=== PATIENT | male | born 1950 | race Caucasian/White ===

== ENCOUNTER 2018-07-12 13:45 | Outpatient (RCR) | payer MEDICARE, OTHER, SELFPAY ==
--- NOTE | 2018-06-14 14:51 | PTTR_ITS ---
DATE: 06/14/18 SUBJECTIVE: Valdemar indicates he does note fatigue in his leg muscles, quickly, with activity. Indicated he was very tired by the completion of today's session. Is expecting another series of injection for his back in the very near future at [facility]. OBJECTIVE: Therapeutic procedures (64972n9). * x See flow sheet: focus was on strengthening of bilateral LEs and hip stabilizers. * Verbal and tactile cues were provided throughout today's session for proper positioning and isolation of specific muscles. * x Neuro Re-education - (27913 x1): see flow sheets for balance and proprioceptive activities performed in clinic today, both statically and dynamically. * Does require stand by to contact guard x1 with each of these activities due to occasional loss of balance and limited LE strength. The patient ambulation throughout the clinic does appear very unsteady. States he has a cane that he uses outside. Direct treatment time: 35 min. Total treatment time: 35 min. SG/gc
--- NOTE | 2018-06-19 09:30 | PTTR_ITS ---
DATE: 06/19/18 SUBJECTIVE: Indicated he is doing fair today. Was tired after last session. OBJECTIVE: Therapeutic procedures (68342u6). * x See flow sheet: Focus on strengthening of bilateral LEs and hip stabilizers. * x Provided skilled instruction in proper exercise performance * x Provided skilled manual cues to facilitate proper muscle recruitment and/ or movement pattern * x Neuro Re-education - (83889 x1): See flow sheet for balance and proprioceptive activities. Performed static and dynamic activities with stand by to contact guarding required. Direct treatment time: 35 minutes Total treatment time: 35 minutes
--- NOTE | 2018-06-22 14:16 | PTTR_ITS ---
DATE: 06/22/18 SUBJECTIVE: Valdemar indicates that he definitely notes improvements being made with the strength of his LEs. Does feel that he is more stable when walking in the past few days. OBJECTIVE: Therapeutic procedures (58557l7). * HEP review: * x See flow sheet: focus was on strengthening of bilateral LE and hip stabilizers. Was able to increase 10# on hamstring machine today, as well as increasing 1 level on the [employer] with squatting tasks. Also, increased repetitions with mini squats. * Verbal and tactile cues were provided throughout today's session for proper positioning and isolation of specific muscles. * x Neuro Re-education - (10077 x1): See flow sheets for specific details of balance and proprioceptive activities performed while in clinic today. This included both dynamic and static activities, which did require mainly stand by guard x1. Continues to struggle with single leg stance activities. We did discuss practicing this at home, standing by the kitchen counter where he has something solid to grab ahold of if he becomes unsteady. Direct treatment time: 35 minutes Total treatment time: 35 minutes. SG/gc
--- NOTE | 2018-06-26 13:19 | PTTR_ITS ---
DATE: 06/26/18 SUBJECTIVE: Valdemar states he is really struggling with the balance exercises in our clinic, but feels as though his strength is improving. OBJECTIVE: * x Neuro Re-education - (65835 x2): dynamic and static balance activities , with foot placements in tandem, partial tandem, use of air-x on solid ground with eyes open and eyes closed. Dynamically worked on heel toe walking forward and backward and side stepping. He completed the remainder of his strengthening with the [employer]. For details see her note Direct treatment time: 10:00 til 10:30 A.M. Assessment: Good gains being made with his static single leg stance at 8 seconds on the right, now, compared to 3 to 4 seconds at time of I.E. This is 12 to 13 seconds on the left. Plan: Continue as indicated above. MM/gc
--- NOTE | 2018-06-29 09:30 | PTTR_ITS ---
DATE: 06/29/18 SUBJECTIVE: Mynor indicates he continues to note improvement being made with his overall strength and noting less loss of balance with his daily activities. Therapeutic procedures (53864m3). * x See flow sheet: focus was on strengthening of bilateral LE's and hip stabilizers. * X Provided skilled instruction in proper exercise performance: * X Provided skilled manual cues to facilitate proper muscle recruitment and/ or movement pattern: Was able to increase resistance with quad and hamstring machines today. * Neuro Re-education - (47069 x1): See flow sheet for balance and proprioceptive activities performed in clinic today. Continues to require stand by guard of one with balance activities, but overall appearing more stable. Did perform 10 mins of wellness at end of session. Direct treatment time: 35 mins Total treatment time: 45 mins SG/dl
--- NOTE | 2018-07-03 15:02 | PTTR_ITS ---
DATE: 07/03/18 SUBJECTIVE: Valdemar indicates that he did fall on Monday while working outside on skirting for his home. States he went to lean forward, losing his balance due to debris around him. He had a difficult time getting back into the standing position, taking him approx 15 min to do so. Indicates he did not note any injury from this fall, but is very frustrated due to the fact he had been doing so well with his balance recently. OBJECTIVE: Therapeutic procedures (08972y5). * x See flow sheet: focus was on strengthening of bilateral LEs and hip / core stabilizers. * Verbal and tactile cues were provided throughout today's session for proper positioning and isolation of specific muscles. * x Neuro Re-education - (67579 x2): See flow sheets for balance and proprioceptive activities performed while in clinic today. Stand by to contact guard x1 was provided with each of these activities. Does have the tendency to hold his feet too close together when performing dynamic movements, such as stepping over hurdles, causing him to trip on his own feet. Direct treatment time: 45 min. Total treatment time: 45 min. SG/gc
--- NOTE | 2018-07-06 10:30 | PTTR_ITS ---
DATE: 07/06/18 SUBJECTIVE: Arrived to dept indicating he has had a tiring week doing home projects. Fell again on Monday while stepping off stool backward while helping his sister. Scratched up the back of his right arm, but otherwise okay. Thinks he was just tired. OBJECTIVE: Therapeutic procedures (19943p3). * x See flow sheet: Focus on strengthening of bilateral LEs and hip / core stabilizers. Held on mini squats and only performed 10 reps of hip PREs due to patient appearing fatigued. * x Provided skilled instruction in proper exercise performance * x Provided skilled manual cues to facilitate proper muscle recruitment and/ or movement pattern * x Neuro Re-education - (33870 x2): See flow sheet for balance and proprioceptive activities performed today. Added forward reaching tasks with cone tap at varies heights and forward step ups/ backward step downs off 4 and 6 inch stools due to recent falls. Direct treatment time: 40 minutes Total treatment time: 40 minutes
--- NOTE | 2018-07-10 15:27 | PN_ITS ---
DATE: July 10, 2018 REFERRING: Justin Cedillo REFERRING PROVIDER DIAGNOSIS:: LBP/radiculopathy/right sided sciatica REPORTING PERIOD (for progress note and discharge note only): June 11 til July 10 SUBJECTIVE: Valdemar states he is going in for another injection for his spine condition tomorrow in [place]. Feels as though this has somewhat limited his unilateral stance on his right LE, otherwise he is noting strength improvements. OBJECTIVE: Seen today for a recheck - Special Tests (indicate): 30 second sit to stand transfers x8. Single leg stance greater than 10 seconds left and 8 seconds right (limited due to pain) TUG 9.72 seconds Treatment: Neuro re-ed: 27826 x2 Balance and proprioceptive training. This was upgraded to include tandem stance wobble board. He required verbal cues for proper upper trunk postural positioning to avoid forwardly flexed posture. Therapeutic procedure: 60958 x1 Bilateral LE strengthening with modifications to prevent increased right hip pain when performing unilateral right hip stance. Treatment time: 11:10 A.M. til 12:00 P.M. ASSESSMENT: Strength and balance are progressing well. 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 We discussed being more aware of these positions with higher end activities, and not place himself at such risk. ST) improve partial tandem to 10 seconds left and/or right foot anterior - progressing toward with improvement 2) able to perform tandem stance 10 seconds left and/or right foot anterior - met 3) able to perform 8 sit to stand transfers in 30 seconds - met LT) TUG in less than 11 seconds - met 2) age appropriate 12+ sit to stand transfers in 30 seconds - making progress toward 3) patient independent with HEP - making progress toward 4) improve single leg stance to greater than or equal to 10 seconds - making progress toward G-Codes (add modifier after appropriate code): Patient's primary functional limitation is in the category of: * x Mobility - walking and moving around : [id number] Projected goal: [id number] PLAN: Still progressing toward goals, and making good gains. Do feel some of his limitations are stemming from hip pain coming from his back, and he will address this with an injection. Continue 2x per week for another 2 to 3 weeks with transition to [facility]. Thank you for this referral!
--- NOTE | 2018-07-12 14:44 | PTTR_ITS ---
DATE: 07/12/18 SUBJECTIVE: Valdemar reports that he received two injections in his back yesterday , and has some noted soreness in right lateral hip. He does report that he has noted a decrease in his pain already. OBJECTIVE: Therapeutic procedures (46102k9). * [X] See flow sheet: Patient completed a LE strengthening program, as per flow sheet. Patient tolerated a slight progression in his program today, modifications are noted on flow sheet. Vitals were checked pre and post- exercise on the [employer], which he completed via [facility]. * [X] Provided skilled instruction in proper exercise performance. * [X] Provided skilled manual cues to facilitate proper muscle recruitment and/or movement pattern. Neuro Re-education - (67048 x2): Patient completed a static and dynamic proprioceptive and balance retraining program, as per flow sheet. Patient required CGA for most balance exercises for safety. Direct treatment time: 45 minutes Total treatment time: 50 minutes
== END 2018-07-13 23:59 | disposition home or self-care (01) ==
LOC: PT 13:45
PROVIDERS: PCP Family Medicine; Referring Provider Nurse Practitioner; Visit Provider Nurse Practitioner
DX: R29.6 Repeated falls (principal); R26.81 Unsteadiness on feet
CPT/HCPCS: 97110; 97112; G8978

== ENCOUNTER → 2019-04-26 09:02 | Outpatient (BNVA) | payer MEDICARE, OTHER, SELFPAY | PROVIDERS: PCP Specialist/Technologist Athletic Trainer; Referring Provider Family Medicine; Visit Provider Surgery | DX: R13.10 Dysphagia, unspecified (principal); J44.9 Chronic obstructive pulmonary disease, unspecified; E11.9 Type 2 diabetes mellitus without complications; Z79.84 Long term (current) use of oral hypoglycemic drugs | CPT/HCPCS: 99203; 99214 ==

== ENCOUNTER 2019-04-29 12:17 | Day surgery (SDC) | payer MEDICARE, OTHER, SELFPAY ==
--- NOTE | 2019-04-29 06:58 | W.PM.ENDDOP ---
Date of service: 04/29/19 Time of Service: 13:20 Endoscopy Report DATE OF PROCEDURE: 04/29/19 PRE-OP DIAGNOSIS: Dysphagia POST-OP DIAGNOSIS: other (mild gastritis and esophagitis) PROCEDURE: EGD with bx SURGEON: Claudia Hale ANESTHESIA: other (General/ ASA 2/Vickie Shields, HERMINIO) ESTIMATED BLOOD LOSS: 3 PATHOLOGY: other (Antrum bx, gastric polyp bx, GE junction bx and distal esophagus bx) COMPLICATIONS: None DISPOSITION: same day INDICATIONS: Mr. Smith is a pleasant 68 year old with dysphagia. Risks, benefits and complications have been reviewed. Complications include but are not limited to bleeding, pain, perforation, sore throat, aspiration, and adverse reaction to the medications. Questions were entertained and answered to their satisfaction and they wished to proceed. No guarantees were given or implied. PROCEDURE START TIME: 13:20 PROCEDURE END TIME: 13:30 FINDINGS: Mild gastritis and benign appearing fundic polyps Wrap seems intact Esophagitis mild Tortuous esophagus distally PROCEDURE DESCRIPTION: After informed consent was obtained the patient was take to the procedure room and placed in a supine position. Monitors were applied and a time out was done. The patients name, date of , procedure type, allergies to medications and metal in their body was reviewed. A bite block was placed and the patient was sedated. Once sedated and comfortable the gastroscope was advanced through the oropharynx which was grossly normal into the esophagus. The proximal and mid-esophagus were normal. In the distal esophagus there was tortuousity noted, as well as some mild inflammation. The scope was advanced into the stomach and through the pylorus into the 3rd portion of the duodenum. The duodenum was noted to be normal. The scope was retracted back into the stomach and biopsies were done to rule out H. pylori. There was mild inflammation. There were no ulcers. The scope was retro-flexed. The cardia and fundus were noted to be normal. It looked like there was still at least a partial wrap in place. The scope was retracted back into the esophagus and biopsies were done of the GE junction to rule out Reynaga's. The Z line was regular. The GE junction was at 35 cm. Biopsies were also done of the distal esophagus at 30 cm. The scope was removed and the patient was woken up and taken back to [facility] in stable condition. Follow up: I will order a Barium swallow. I will also increase his Omeprazole to 20 mg BID. I will see him in the office after the Barium swallow.
--- NOTE | 2019-04-29 06:59 | W.PM.DSUDISC ---
Discharge Plan Disposition Patient Disposition: HOME Condition: Good Discharge Details Reason For Visit: EGD Attending Provider: Claudia Hale Primary Care Provider: Hilario Shay Home Meds and New Rx's Prescriptions: Continued oxybutynin chloride 5 mg tablet 5 mg PO BID RF: 0 Jardiance 25 mg tablet 25 mg PO DAILY RF: 0 gabapentin 300 mg capsule 900 mg PO TID RF: 0 metformin 500 mg tablet 1,000 mg PO BID RF: 0 paroxetine HCl [Paxil] 40 mg tablet 40 mg PO DAILY RF: 0 pravastatin 40 mg tablet 40 mg PO DAILY RF: 0 cholecalciferol (vitamin D3) [Vitamin D3] 400 UNIT tablet 1 tab PO HS RF: 0 glipizide 10 MG tablet 10 mg PO DAILY RF: 0 lisinopril 10 MG tablet 10 mg PO DAILY RF: 0 acetaminophen [Acetaminophen Extra Strength] 500 MG tablet 1,000 mg PO TID PRNRF: 0 Changed omeprazole 20 MG capsule,delayed release(DR/EC) 20 mg PO BID Qty: 60 RF: 2 Discharge Instructions Instructions: Upper Endoscopy (DC) Additional Instructions: Findings: Mild inflammation of the stomach and esophagus. No narrowing or scar tissue noted to explain the swallowing issues Follow up:I will order a Barium swallow test and see you in the office after the test has been done Medications: Please increase the Omeprazole to 20 mg 2 x a day Please call if you develop: fevers >101.5 Nausea or Vomiting Abdominal pain that is not transient DAY SURGERY UNIT POST COLONOSCOPY INSTRUCTIONS 1. Because there will be medication in your system for the next 24 hours, you may feel a little sleepy. Your coordination will be affected. Therefore: a. Do not drive or operate dangerous equipment for 24 hours. b. Do not drink alcohol beverages for 24 hours (not even beer). c. Plan to go home and rest for the day. 2. Generally there are no restrictions on your activity after a day or so has gone by, but you may feel a bit fatigued for a few days. 3 After you arrive home you may have a light meal and return to a normal diet as you can tolerate it without feeling sick to your stomach. 4. After surgery, you may feel pain or discomfort. This should be only transient, but if it persists please contact your doctor. 5. If there are any questions regarding the findings of your procedure, please feel free to contact your doctor. 6. If you are unable to contact your doctor with a problem, contact the hospital at [phone]. 7. Continue all your regular medications unless directed otherwise. I understand the above instructions and have no questions. Signature of Patient or Responsible Adult Escort Date/Time Name of Responsible Adult Escort Signature of Nurse Date/Time Activity:: Activity as Tolerated Diet:: As Tolerated Discharge Orders Discharge Orders: Discharge Order (Routine); Ordered 04/29/19 Ordered By: Claudia Hale DS: Diagnosis Discharge Diagnosis (1) H/O esophagogastroduodenoscopy: Status: Chronic (2) GERD (gastroesophageal reflux disease): Status: Chronic
[2019-04-29 12:47] VITALS: BP 132/87; PULSE 99; RESP 18; TEMP 36.5; O2SAT 93
[2019-04-29] MEDS: Lactated Ringers 1,000 ML 80 ML IV (13:00)
--- NOTE | 2019-04-29 13:24 | STOM_PTH ---
PATIENT: Valdemar Smith LOC: [facility] U#:[id number] AGE/SX: 68/M ROOM: RE04/29/[address]: Claudia Hale MD : [id number] BED: DIS: 04/29/2019 SPEC #: [id number] RECD: 04/29/19 17:51 STATUS: SALO WILLSON #: [id number] SAIMA: 04/29/19 13:[address]: Claudia Hale DEPT: Surgical Specimen RECD BY: Rachel Palacio ENTERED: 04/29/19 17:52 SP TYPE: STOMACH OTHR DR: Hilario Shay Tissues: 1 - STOMACH BIOPSY 2 - STOMACH BIOPSY 3 - ESOPHAGUS BIOPSY 4 - ESOPHAGUS BIOPSY Procedures: GROSS AND MICRO LEVEL 4 SPECIAL STAIN 1 Comments: [id number]
[2019-04-29 14:15] VITALS: BP 123/82; PULSE 89; RESP 18; TEMP 36.4; O2SAT 95
== END 2019-04-29 15:07 | disposition home or self-care (01) ==
PROVIDERS: PCP Specialist/Technologist Athletic Trainer; Visit Provider Surgery
PROC: 0DJ68ZZ Inspection of Stomach, Via Natural or Artificial Opening Endoscopic (ICD-10-PCS; CPT 43235; principal; 2019-04-29 13:00)
DX: R13.10 Dysphagia, unspecified (principal); K22.10 Ulcer of esophagus without bleeding; K31.7 Polyp of stomach and duodenum; K31.89 Other diseases of stomach and duodenum; E11.9 Type 2 diabetes mellitus without complications; Z79.84 Long term (current) use of oral hypoglycemic drugs; Z98.890 Other specified postprocedural states
CPT/HCPCS: 43239; 88305; 88312

== ENCOUNTER 2019-05-02 00:46 | Outpatient (CLI) | payer MEDICARE, OTHER, SELFPAY ==
--- NOTE | 2019-05-02 09:50 | DI.RAD_ITS ---
SYMPTOM/DIAGNOSIS: DYSPHAGIA, R13.10 BARIUM SWALLOW AND UPPER GI SERIES: Preliminary films of the chest are unremarkable. A soft tissue lateral of the neck was also obtained and appears unremarkable. Fluoroscopy Time: .38 sec The patient swallowed barium without difficulty. The oral hypopharynx and esophagus appear intact. The patient is status post Yong procedure and there is considerable narrowing of the distal esophagus at the level of the Yong. The stomach, duodenum and proximal and mid small bowel appear unremarkable. SUMMARY: The patient is status post Yong procedure and there is considerable narrowing involving the distal esophagus at the level of the Yong The stomach and proximal small bowel are unremarkable.
[2019-05-02] MEDS: Barium Sulfate 60% W/V 355 ML BTL PO (11:26)
== END 2019-05-02 01:06 ==
PROVIDERS: PCP Specialist/Technologist Athletic Trainer; Visit Provider Surgery
DX: R13.10 Dysphagia, unspecified (principal); Z98.890 Other specified postprocedural states
CPT/HCPCS: 74220; 74247; J3490

== ENCOUNTER 2019-06-05 15:28 | Outpatient (REF) | payer MEDICARE, OTHER, SELFPAY ==
[2019-06-05 23:03] LABS: Anion Gap 13.8 mmol/L (3-11); BUN 26 mg/dL (7-18); CO2 23.2 mmol/L (21.0-32.0); CREATININE 1.39 mg/dL (0.70-1.30); Calcium 8.9 mg/dL (8.5-10.1); Calculated LDL 93 mg/dL; Chloride 105 mmol/L (98-107); Cholesterol 168 mg/dL (50-200); Estimated GFR 50.82 (mL/min/1.73m2); Glucose 82 mg/dL (70-100); HDL Cholesterol 37 mg/dL (40-60); Potassium 4.5 mmol/L (3.5-5.1); Sodium 142 mmol/L (136-145); Triglyceride 192 mg/dL (30-150)
== END 2019-06-05 15:48 ==
LOC: NCHCN 15:28
PROVIDERS: PCP Specialist/Technologist Athletic Trainer; Visit Provider Specialist/Technologist Athletic Trainer
DX: E11.9 Type 2 diabetes mellitus without complications (principal); E78.5 Hyperlipidemia, unspecified
CPT/HCPCS: 80048; 80061; 83721; 83735

== ENCOUNTER → 2019-06-13 09:33 | Outpatient (BNVA) | payer MEDICARE, OTHER, SELFPAY | PROVIDERS: PCP Specialist/Technologist Athletic Trainer; Visit Provider Psychiatry & Neurology Neurology | DX: R26.9 Unspecified abnormalities of gait and mobility (principal); G47.30 Sleep apnea, unspecified; R26.81 Unsteadiness on feet; R13.10 Dysphagia, unspecified; R41.3 Other amnesia; E11.40 Type 2 diabetes mellitus with diabetic neuropathy, unspecified; K59.00 Constipation, unspecified; R32 Unspecified urinary incontinence; F41.9 Anxiety disorder, unspecified; J44.9 Chronic obstructive pulmonary disease, unspecified; E11.9 Type 2 diabetes mellitus without complications | CPT/HCPCS: 99205; 99215 ==

== ENCOUNTER → 2019-07-11 11:14 | Outpatient (BNVA) | payer MEDICARE, OTHER, SELFPAY | PROVIDERS: PCP Specialist/Technologist Athletic Trainer; Visit Provider Psychiatry & Neurology Neurology | DX: G47.30 Sleep apnea, unspecified; R26.81 Unsteadiness on feet; R13.10 Dysphagia, unspecified; R41.3 Other amnesia; E11.40 Type 2 diabetes mellitus with diabetic neuropathy, unspecified; K59.00 Constipation, unspecified; F41.9 Anxiety disorder, unspecified; I10 Essential (primary) hypertension; Z99.89 Dependence on other enabling machines and devices; Z79.84 Long term (current) use of oral hypoglycemic drugs; J44.9 Chronic obstructive pulmonary disease, unspecified | CPT/HCPCS: 99214 ==

== ENCOUNTER → 2019-08-05 08:15 | Outpatient (BNVA) | payer MEDICARE, OTHER, SELFPAY | PROVIDERS: PCP Specialist/Technologist Athletic Trainer; Visit Provider Psychiatry & Neurology Neurology | DX: R26.9 Unspecified abnormalities of gait and mobility (principal); G47.30 Sleep apnea, unspecified; R26.81 Unsteadiness on feet; R13.10 Dysphagia, unspecified; R41.3 Other amnesia; E11.40 Type 2 diabetes mellitus with diabetic neuropathy, unspecified; K59.00 Constipation, unspecified; F41.9 Anxiety disorder, unspecified; I10 Essential (primary) hypertension; Z79.84 Long term (current) use of oral hypoglycemic drugs | CPT/HCPCS: 99215 ==

== ENCOUNTER 2019-08-05 09:37 | Outpatient (CLI) | payer MEDICARE, OTHER, SELFPAY ==
[2019-08-05 11:11] LABS: TSH (W/Ref FT4) 1.51 uIU/mL (0.36-3.74); Vitamin B12 357 pg/mL (193-986)
== END 2019-08-05 09:57 ==
PROVIDERS: PCP Specialist/Technologist Athletic Trainer; Visit Provider Psychiatry & Neurology Neurology
DX: G62.9 Polyneuropathy, unspecified (principal); R50.9 Fever, unspecified; R26.9 Unspecified abnormalities of gait and mobility; G47.30 Sleep apnea, unspecified; R26.81 Unsteadiness on feet; R13.10 Dysphagia, unspecified; R41.3 Other amnesia; E11.40 Type 2 diabetes mellitus with diabetic neuropathy, unspecified; K59.00 Constipation, unspecified; F41.9 Anxiety disorder, unspecified; I10 Essential (primary) hypertension; Z79.84 Long term (current) use of oral hypoglycemic drugs
CPT/HCPCS: 36415; 99215; 82607; 84443

== ENCOUNTER → 2019-09-02 14:46 | Outpatient (BNVA) | payer MEDICARE, OTHER, SELFPAY | PROVIDERS: PCP Specialist/Technologist Athletic Trainer; Referring Provider Specialist/Technologist Athletic Trainer; Visit Provider Psychiatry & Neurology Neurology | DX: G20 Parkinson's disease (principal); R41.3 Other amnesia; R13.10 Dysphagia, unspecified; R32 Unspecified urinary incontinence; E11.40 Type 2 diabetes mellitus with diabetic neuropathy, unspecified; R53.83 Other fatigue; Z79.84 Long term (current) use of oral hypoglycemic drugs; J44.9 Chronic obstructive pulmonary disease, unspecified | CPT/HCPCS: 99214 ==

== ENCOUNTER → 2020-04-27 11:35 | Outpatient (BNVA) | payer MEDICARE, OTHER, SELFPAY | PROVIDERS: PCP Specialist/Technologist Athletic Trainer; Referring Provider Specialist/Technologist Athletic Trainer; Visit Provider Psychiatry & Neurology Neurology | DX: G23.1 Progressive supranuclear ophthalmoplegia [Steele-Richardson-Olszewski] (principal); R26.9 Unspecified abnormalities of gait and mobility; R13.10 Dysphagia, unspecified; G47.30 Sleep apnea, unspecified; R26.81 Unsteadiness on feet; R41.3 Other amnesia; E11.40 Type 2 diabetes mellitus with diabetic neuropathy, unspecified; K59.00 Constipation, unspecified; R32 Unspecified urinary incontinence; F41.9 Anxiety disorder, unspecified | CPT/HCPCS: 99214 ==

== ENCOUNTER → 2020-07-06 09:20 | Outpatient (BNVA) | payer MEDICARE, OTHER, SELFPAY | PROVIDERS: PCP Nurse Practitioner Family; Referring Provider Specialist/Technologist Athletic Trainer; Visit Provider Psychiatry & Neurology Neurology | DX: G23.1 Progressive supranuclear ophthalmoplegia [Steele-Richardson-Olszewski] (principal); G47.30 Sleep apnea, unspecified; R26.89 Other abnormalities of gait and mobility; R13.10 Dysphagia, unspecified; R41.3 Other amnesia; E11.40 Type 2 diabetes mellitus with diabetic neuropathy, unspecified; K59.00 Constipation, unspecified; F41.9 Anxiety disorder, unspecified; J44.9 Chronic obstructive pulmonary disease, unspecified; Z79.84 Long term (current) use of oral hypoglycemic drugs | CPT/HCPCS: 99214 ==

== ENCOUNTER → 2020-08-12 14:13 | Outpatient (BNVA) | payer MEDICARE, OTHER, SELFPAY | PROVIDERS: PCP Nurse Practitioner Family; Visit Provider Psychiatry & Neurology Neurology | DX: G23.1 Progressive supranuclear ophthalmoplegia [Steele-Richardson-Olszewski] (principal); G47.30 Sleep apnea, unspecified; R26.81 Unsteadiness on feet; R13.10 Dysphagia, unspecified; R41.3 Other amnesia; E11.40 Type 2 diabetes mellitus with diabetic neuropathy, unspecified; K59.00 Constipation, unspecified; R32 Unspecified urinary incontinence; F41.9 Anxiety disorder, unspecified | CPT/HCPCS: 99215 ==

== ENCOUNTER 2020-09-14 10:21 | Emergency (ER) | payer MEDICARE, OTHER, SELFPAY ==
[2020-09-14 10:29] VITALS: BP 134/90; PULSE 99; RESP 20; TEMP 36.4; O2SAT 94
--- NOTE | 2020-09-14 10:30 | DI.RAD_ITS ---
EXAM: XR HIP LT COMPLETE AP PELVIS CLINICAL HISTORY: Fall, hip pain. TECHNIQUE: 2D digital imaging was performed. COMPARISON: No exams were available for comparison FINDINGS: BONES: There are stable post operative changes present. No new fracture or dislocation. JOINTS: The joint spaces are well maintained. No joint effusion is present. SOFT TISSUE: Normal. IMPRESSION: Stable postoperative changes. No acute fracture or dislocation. DATA REPOSITORY: RADIATION DOSE DELIVERED:
--- NOTE | 2020-09-14 10:36 | ED.GENADUL_ITS ---
Discharge Plan Disposition Patient Disposition: HOME Condition: Stable Discharge Details Clinical Impression: Frequent falls, Hip pain, left Primary Care Provider: Awilda Rollins ED Provider: Lucia Kaur Home Meds and New Rx's Prescriptions: New tramadol 50 mg tablet 50 mg PO BID PRN (Reason: pain) Qty: 7 RF: 0 No Action cholecalciferol (vitamin D3) 1,000 unit capsule 1,000 unit PO DAILY RF: 0 omeprazole 20 mg capsule,delayed release(DR/EC) 40 mg PO DAILY RF: 0 docusate sodium 100 mg tablet 200 mg PO QHS Qty: 180 RF: 3 ascorbate calcium (vitamin C) 500 mg tablet 500 mg PO DAILY RF: 0 rivastigmine tartrate 1.5 mg capsule 1.5 mg PO DIRECTED Qty: 60 RF: 5 carbidopa-levodopa 25-100 mg tablet 2 tab PO QID Qty: 720 RF: 3 oxybutynin chloride 5 mg tablet 5 mg PO BID RF: 0 gabapentin 300 mg capsule 900 mg PO TID RF: 0 metformin 500 mg tablet 1,000 mg PO BID RF: 0 paroxetine HCl [Paxil] 40 mg tablet 40 mg PO DAILY RF: 0 pravastatin 40 mg tablet 40 mg PO DAILY RF: 0 amantadine HCl 100 mg tablet 100 mg PO BID RF: 0 Jardiance 25 mg tablet 25 mg PO DAILY RF: 0 carbidopa-levodopa 25-250 mg tablet 1 tab PO QID Qty: 360 RF: 3 glipizide 10 MG tablet 10 mg PO DAILY RF: 0 lisinopril 10 MG tablet 10 mg PO DAILY RF: 0 hydroxyzine HCl 50 mg Tablet 50 mg PO BID RF: 0 Discharge Instructions Instructions: Fall Prevention (ED), Hip Pain (ED) Additional Instructions: CT and x-rays are negative for acute fracture or abnormality at this time. Please take pain medication as directed. Please take Tylenol or Ibuprofen with food every 4-6 hours as needed for pain and swelling. Alternate ice and heat. Referrals: Awilda Rollins [Primary Care Provider] - Medical Decision Making 67-year-old female presents to the ED with chief complaint of right ankle pain after a fall this morning. Patient states that she got up from a sitting position and fell twisting her right ankle and hearing a snap. She also has an abrasion superficial noted to her anterior left knee. On initial exam she has lateral malleolus swelling and tenderness. She reports her pain is 10 out of 10. She denies hitting her head or any other injuries. She has a past medical history of neuropathy, SVT, depression, agoraphobia, multiple sclerosis, stage IV lung cancer. EXAM: XR HIP LT COMPLETE AP PELVIS CLINICAL HISTORY: Fall, hip pain. TECHNIQUE: 2D digital imaging was performed. COMPARISON: No exams were available for comparison FINDINGS: BONES: There are stable post operative changes present. No new fracture or dislocation. JOINTS: The joint spaces are well maintained. No joint effusion is present. SOFT TISSUE: Normal. IMPRESSION: Stable postoperative changes. No acute fracture or dislocation. Spoke with patient's [place] regarding plan of care. CT hip ordered to rule out fracture due to history of bilateral hip replacements and continued pain. EXAM: CT PELVIC WO CLINICAL HISTORY: left hip pain, R/O fracture. TECHNIQUE: Imaging Protocol: Axial computed tomography images with coronal and sagittal reformatted images were created and reviewed. COMPARISON: CR XR HIP LT COMPLETE AP PELVIS from 09/14/2020 FINDINGS: Bones: The osseous structures and articular surfaces are intact. There is no evidence of fracture or dislocation. Bony alignment is satisfactory. No cellulitic or osteomyelitic changes are identified. There is no evidence of joint space narrowing or cystic degeneration seen. No lytic or sclerotic lesions are identified. Patient has bilateral total hip replacements. There is artifact which results from the orthopedic hardware. Soft Tissues: Normal. IMPRESSION: No acute fracture or dislocation. Findings were discussed with the emergency department on the date of the examination complete Discussed CT results with patient and family instructed on impending discharge home verbalized understanding. HPI General Mode of arrival: wheelchair . Date/Time Provider Initiated Documentation: 09/14/20 10:23 . Limitations to Documentation: no limitations . Information obtained by: patient . HPI Narrative: 70-year-old male presents to the ED with chief complaint of left hip pain. Does have a history of frequent falls and Parkinson's. He states that he is fallen many times over the last week. He states that his left hip pain began 1 week ago. He attempted to do physical therapy this a.m. was a unable to finish treatment. Sent here for x- rays. Other past medical history includes anxiety, diabetic neuropathy, urinary incontinence, GERD, COPD, diabetes. Related Data Home Medications Medication Instructions Recorded Confirmed glipizide 10 mg PO DAILY 04/20/16 09/14/20 lisinopril 10 mg PO DAILY 04/20/16 09/14/20 gabapentin 300 mg capsule 900 mg PO TID cap 04/17/19 09/14/20 metformin 500 mg tablet 1,000 mg PO BID tab 04/17/19 09/14/20 oxybutynin chloride 5 mg tablet 5 mg PO BID 04/17/19 09/14/20 paroxetine HCl 40 mg tablet 40 mg PO DAILY 04/17/19 09/14/20 pravastatin 40 mg tablet 40 mg PO DAILY 04/17/19 09/14/20 cholecalciferol (vitamin D3) 25 1,000 unit PO DAILY 06/13/19 09/14/20 mcg (1,000 unit) capsule docusate sodium 100 mg tablet 200 mg PO QHS #180 tab 08/05/19 09/14/20 omeprazole 20 mg capsule,delayed 40 mg PO DAILY cap 09/02/19 09/14/20 release carbidopa 25 mg-levodopa 250 mg 1 tab PO QID #360 tab 03/31/20 09/14/20 tablet empagliflozin 25 mg tablet 25 mg PO DAILY 05/22/20 09/14/20 amantadine HCl 100 mg tablet 100 mg PO BID tab 07/06/20 09/14/20 ascorbate calcium (vitamin C) 500 500 mg PO DAILY 08/12/20 09/14/20 mg tablet carbidopa 25 mg-levodopa 100 mg 2 tab PO QID #720 tab 08/12/20 09/14/20 tablet rivastigmine tartrate 1.5 mg 1.5 mg PO DIRECTED #60 cap 08/12/20 09/14/20 capsule hydroxyzine HCl 50 mg PO BID 09/14/20 09/14/20 tramadol 50 mg PO BID PRN #7 tab 09/14/20 Previous Rx's Medication Instructions Recorded docusate sodium 100 mg tablet 200 mg PO QHS #180 tab 08/05/19 carbidopa 25 mg-levodopa 250 mg 1 tab PO QID #360 tab 03/31/20 tablet carbidopa 25 mg-levodopa 100 mg 2 tab PO QID #720 tab 08/12/20 tablet rivastigmine tartrate 1.5 mg 1.5 mg PO DIRECTED #60 cap 08/12/20 capsule tramadol 50 mg PO BID PRN #7 tab 09/14/20 Allergies Allergy/AdvReac Type Severity Reaction Status Date / Time bupropion HCl AdvReac Intermediate shakey/metal Unverified 09/14/20 10:32 [From Wellbutrin] taste/off balance Penicillins AdvReac Intermediate Skin Rash Unverified 09/14/20 10:32 foam tape Allergy Intermediate Skin Rash Uncoded 09/14/20 10:32 General Stated Complaint: Orthopedic LORA: 3 Review of Systems Narrative: Constitutional: Negative for weight loss, alert and oriented, well groomed, normal body habitus, appears comfortable. HEENT: Denies trauma, headaches, blurry vision, nasal discharge, sore throat, trouble swallowing. Chest: Denies chest pain, palpitations, irregular rhythm, hypertension. Respiratory: Denies Shortness of breath, cough, hemoptysis. GI: Denies abdominal pain, nausea, vomiting, diarrhea, constipation. : Denies dysuria, hematuria, flank pain, rectal bleeding. Musculoskeletal: Left hip pain Neuro: Denies dizziness, blurry vision, weakness, syncope, headache or facial numbness. Hematologic: Denies easy bruising, intolerance to heat or cold, hair loss. [facility] Medical History (Updated 09/14/20 @ 14:20 by Lucia Kaur) Anxiety Chronic low back pain COPD (chronic obstructive pulmonary disease) Depression Diabetes mellitus Diabetic neuropathy Difficulty swallowing Diverticulosis Esophageal stricture Frequent falls GERD (gastroesophageal reflux disease) Hiatal hernia History of colonic polyps History of kidney stones Hyperlipidemia Incisional hernia Inguinal hernia Insomnia Obesity Osteoarthritis Sleep apnea Unsteady gait Surgical History H/O esophagogastroduodenoscopy (~04/29/19) History of cardiac cath History of colonoscopy History of lumbar laminectomy for spinal cord decompression History of shoulder surgery History of total hip arthroplasty S/P Arcadio fundoplication (without gastrostomy tube) procedure x2 at [facility] S/P total knee replacement Total replacement of hip Family History Mother Dementia COPD (chronic obstructive pulmonary disease) Other Cancer Diabetes Heart disease Social History Smoking/Tobacco Use Status: Never Smoking risk assessment performed?: Yes Alcohol Intake: current Alcohol Intake frequency: holidays/special occasions only Drug use: Never Substance use type: does not use Details: alcohol: one year Household members: spouse Do you feel safe at home: Yes Do you feel safe in your relationship?: Yes Exam Narrative Exam Narrative: Constitutional: Alert and oriented x3. Appears stated age. Normal body habitus. Head: Normocephalic, no trauma. Eyes: Pupils PERRLA, Red reflex noted, EOM's intact. Eyelids symmetrical without lesions, discharge, or swelling. ENT: Bilateral TM's WNL, External ear normal to inspection, no mastoid TTP, swelling, or erythema, Nasal turbinates WNL, no nasal discharge. Normal dentition, Posterior pharynx WNL, no exudate. Chest: RRR, Normal S1, S2, distal pulses intact. Resp: Lungs clear to auscultation bilaterally, no wheezes, rales, or rhonchi. Musculoskeletal: Left hip pain, no crepitus no obvious deformity. Skin: No suspicious rashes or lesions. Capillary refill less than 2 sec. Neurologic: Cranial nerves II-XII intact. Alert and oriented x 3. DTR's intact. Hematologic/Lymphatic: No ecchymosis, no lymphadenopathy. Course Vital Signs Vital signs: Vital Signs Temperature 36.4 C L 09/14/20 10:29 Pulse 99 H 09/14/20 10:29 Respiratory Rate 09/14/20 10:29 Blood Pressure 134/90 09/14/20 10:29 Pulse Oximetry 94 09/14/20 10:29 Temperature 36.4 C L 09/14/20 10:29 Pulse 99 H 09/14/20 10:29 Respiratory Rate 20 09/14/20 10:29 Respiratory Effort Non-Labored 09/14/20 10:33 Blood Pressure 134/90 09/14/20 10:29 Blood Pressure Position Sitting 09/14/20 10:29 Pulse Oximetry 94 09/14/20 10:29 Oxygen Delivery Method Room Air 09/14/20 10:29 Oxygen Flow Rate 0 09/14/20 10:29 Pain Level 9 09/14/20 10:29
[2020-09-14] MEDS: oxyCODONE 5 mg/Acetaminophen 325 mg TAB 1 TAB PO (10:52)
[2020-09-14 12:06] VITALS: BP 108/76; PULSE 74; RESP 18; O2SAT 90
--- NOTE | 2020-09-14 12:30 | DI.CT_ITS ---
EXAM: CT PELVIC WO CLINICAL HISTORY: left hip pain, R/O fracture. TECHNIQUE: Imaging Protocol: Axial computed tomography images with coronal and sagittal reformatted images were created and reviewed. COMPARISON: CR XR HIP LT COMPLETE AP PELVIS from 09/14/2020 FINDINGS: Bones: The osseous structures and articular surfaces are intact. There is no evidence of fracture or dislocation. Bony alignment is satisfactory. No cellulitic or osteomyelitic changes are identified. There is no evidence of joint space narrowing or cystic degeneration seen. No lytic or sclerotic le sions are identified. Patient has bilateral total hip replacements. There is artifact which results from the orthopedic hardware. Soft Tissues: Normal. IMPRESSION: No acute fracture or dislocation. Findings were discussed with the emergency department on the date of the examination complete RADIATION DOSE DELIVERED: 617.16mGy.cm Total DLP 617.16mGy.cmTotal DLP 617.16mGy.cmTotal DLP DATA REPOSITORY: All CT scans at this facility are submitted to the National Radiology Data Registry (NRDR) Dose Index Registry (DIR) with the [employer] ([employer]). RADIATION OPTIMIZATION: All CT scans at this facility use at least one of these dose optimization te chniques: automated exposure control; mA and/or kV adjustment per patient size (includes targeted exa ms where dose is matched to clinical indication); or iterative reconstruction.
[2020-09-14 13:09] VITALS: BP 120/82; PULSE 86; RESP 16; O2SAT 92
[2020-09-14 14:25] VITALS: BP 111/74; PULSE 86; RESP 18; O2SAT 92
--- NOTE | 2020-09-16 20:04 | W.ED.FU ---
Date of service: 09/16/20 Time of Service: 20:04 Follow Up Plan: Please disregard the first paragraph in the MDM error wrong patient.
== END 2020-09-14 14:50 | disposition home or self-care (01) ==
PROVIDERS: Emergency Provider Registered Nurse Emergency; PCP Nurse Practitioner Family
DX: M25.552 Pain in left hip (principal); R29.6 Repeated falls; G20 Parkinson's disease; E11.9 Type 2 diabetes mellitus without complications; Z79.84 Long term (current) use of oral hypoglycemic drugs; J44.9 Chronic obstructive pulmonary disease, unspecified
CPT/HCPCS: 99284; 72192; 73502

== ENCOUNTER → 2020-10-13 10:43 | Outpatient (BNVA) | payer MEDICARE, OTHER, SELFPAY | PROVIDERS: PCP Nurse Practitioner Family; Visit Provider Psychiatry & Neurology Neurology | DX: G23.1 Progressive supranuclear ophthalmoplegia [Steele-Richardson-Olszewski] (principal); G47.30 Sleep apnea, unspecified; R26.9 Unspecified abnormalities of gait and mobility; R26.81 Unsteadiness on feet; R13.10 Dysphagia, unspecified; R41.3 Other amnesia; E11.40 Type 2 diabetes mellitus with diabetic neuropathy, unspecified; K59.00 Constipation, unspecified; R32 Unspecified urinary incontinence; F41.9 Anxiety disorder, unspecified | CPT/HCPCS: 99214 ==

== ENCOUNTER → 2020-12-31 07:48 | Outpatient (BNVA) | payer MEDICARE, OTHER, SELFPAY | PROVIDERS: PCP Nurse Practitioner Family; Referring Provider Nurse Practitioner Family; Visit Provider Psychiatry & Neurology Neurology | DX: G23.1 Progressive supranuclear ophthalmoplegia [Steele-Richardson-Olszewski] (principal); G47.30 Sleep apnea, unspecified; R26.9 Unspecified abnormalities of gait and mobility; R26.81 Unsteadiness on feet; R13.10 Dysphagia, unspecified; R41.3 Other amnesia; E11.40 Type 2 diabetes mellitus with diabetic neuropathy, unspecified; K59.00 Constipation, unspecified; R32 Unspecified urinary incontinence; F41.9 Anxiety disorder, unspecified; I10 Essential (primary) hypertension | CPT/HCPCS: 99443 ==

== ENCOUNTER 2021-02-17 13:04 | Outpatient (REF) | payer MEDICARE, SELFPAY ==
[2021-02-17 22:13] LABS: HCT 47.8 % (40.0-50.0); MCH 31.3 pg (27.0-33.0); MCHC 33.5 % (32.0-36.0); MCV 93.5 fL (80-95); MPV 9.1 fL (8.0-11.0); Platelet Count 239 10^3/uL (130-400); RBC 5.11 10^6/uL (4.36-5.78); RDW 12.2 % (11.8-14.1); RDW-SD 42.5 fL; WBC 5.56 10^3/uL (4.4-10.8)
[2021-02-17 22:41] LABS: ALT 29 U/L (16-63); AST 12 U/L (15-37); Anion Gap 12.3 mmol/L (3-11); BUN 23 mg/dL (7-18); CO2 26.7 mmol/L (21.0-32.0); Calcium 9.2 mg/dL (8.5-10.1); Calculated LDL 102 mg/dL (<100); Chloride 103 mmol/L (98-107); Cholesterol 180 mg/dL (<200); Glucose 143 mg/dL (74-106); HDL Cholesterol 46 mg/dL (40-60); Potassium 4.5 mmol/L (3.5-5.1); Sodium 142 mmol/L (136-145); Triglyceride 164 mg/dL (<150)
[2021-02-18 18:36] LABS: PSA, Screening 1.4 ng/mL (0.0-6.5)
== END 2021-02-17 13:05 | disposition home or self-care (01) ==
LOC: NCHCN 13:04
PROVIDERS: PCP Nurse Practitioner Family; Visit Provider Nurse Practitioner Family
DX: E11.9 Type 2 diabetes mellitus without complications (principal); E78.5 Hyperlipidemia, unspecified; F32.9 Major depressive disorder, single episode, unspecified; E66.9 Obesity, unspecified; K21.9 Gastro-esophageal reflux disease without esophagitis; R41.0 Disorientation, unspecified; G20 Parkinson's disease; Z12.5 Encounter for screening for malignant neoplasm of prostate
CPT/HCPCS: 80048; 80061; 84153; 85027; 84450; 84460

== ENCOUNTER → 2021-03-24 12:28 | Outpatient (BNVA) | payer MEDICARE, OTHER, SELFPAY | PROVIDERS: PCP Nurse Practitioner Family; Referring Provider Nurse Practitioner Family; Visit Provider Psychiatry & Neurology Neurology | DX: G23.1 Progressive supranuclear ophthalmoplegia [Steele-Richardson-Olszewski] (principal); G47.33 Obstructive sleep apnea (adult) (pediatric); R26.81 Unsteadiness on feet; R13.10 Dysphagia, unspecified; R41.3 Other amnesia; E11.40 Type 2 diabetes mellitus with diabetic neuropathy, unspecified; F41.9 Anxiety disorder, unspecified; R29.6 Repeated falls | CPT/HCPCS: 99215 ==

== ENCOUNTER → 2021-05-26 07:21 | Outpatient (BNVA) | payer MEDICARE, SELFPAY | PROVIDERS: PCP Nurse Practitioner Family; Referring Provider Nurse Practitioner Family; Visit Provider Psychiatry & Neurology Neurology | DX: G23.1 Progressive supranuclear ophthalmoplegia [Steele-Richardson-Olszewski] (principal); R26.81 Unsteadiness on feet; R13.10 Dysphagia, unspecified; R41.3 Other amnesia; E11.40 Type 2 diabetes mellitus with diabetic neuropathy, unspecified; K59.00 Constipation, unspecified; R32 Unspecified urinary incontinence; F41.9 Anxiety disorder, unspecified; R29.6 Repeated falls | CPT/HCPCS: 99443 ==

== ENCOUNTER 2021-08-02 14:50 | Outpatient (REF) | payer MEDICARE, SELFPAY ==
[2021-08-02 20:34] LABS: HCT 43.4 % (40.0-50.0); HGB 14.3 g/dL (13.5-17.5); MCH 31.2 pg (27.0-33.0); MCHC 32.9 % (32.0-36.0); MCV 94.8 fL (80-95); MPV 9.3 fL (8.0-11.0); Platelet Count 244 10^3/uL (130-400); RBC 4.58 10^6/uL (4.36-5.78); RDW 12.3 % (11.8-14.1); RDW-SD 42.5 fL; WBC 6.73 10^3/uL (4.4-10.8)
[2021-08-02 20:40] LABS: ESR 4 mm/hr (0-20)
[2021-08-02 21:00] LABS: ALT 16 U/L (16-63); AST 8 U/L (15-37); Albumin 3.9 g/dL (3.4-5.0); Alkaline Phosphatase 101 U/L (46-116); Anion Gap 7.9 mmol/L (3-11); BUN 22 mg/dL (7-18); Bilirubin, Total 0.6 mg/dL (0.2-1.0); CO2 28.1 mmol/L (21.0-32.0); CREATININE 1.1 mg/dL (0.70-1.30); Calcium 8.8 mg/dL (8.5-10.1); Chloride 107 mmol/L (98-107); Glucose 132 mg/dL (74-106); NT-proBNP 45 pg/mL (<300); Potassium 4.1 mmol/L (3.5-5.1); Sodium 143 mmol/L (136-145)
[2021-08-02 21:03] LABS: D-Dimer 319 ng/mlFEU (<500)
== END 2021-08-02 14:51 | disposition home or self-care (01) ==
LOC: NCHCN 14:50
PROVIDERS: PCP Nurse Practitioner Family; Visit Provider Internal Medicine
DX: R07.89 Other chest pain (principal); R10.12 Left upper quadrant pain; R06.02 Shortness of breath; K21.9 Gastro-esophageal reflux disease without esophagitis
CPT/HCPCS: 80053; 85027; 85652; 83880; 85379

== ENCOUNTER → 2021-08-25 10:27 | Outpatient (BNVA) | payer MEDICARE, SELFPAY | PROVIDERS: PCP Nurse Practitioner Family; Referring Provider Nurse Practitioner Family; Visit Provider Psychiatry & Neurology Neurology | DX: G23.1 Progressive supranuclear ophthalmoplegia [Steele-Richardson-Olszewski] (principal); G47.30 Sleep apnea, unspecified; R13.10 Dysphagia, unspecified; R41.3 Other amnesia; E11.40 Type 2 diabetes mellitus with diabetic neuropathy, unspecified; K59.00 Constipation, unspecified; R32 Unspecified urinary incontinence; R29.6 Repeated falls; I10 Essential (primary) hypertension; E11.42 Type 2 diabetes mellitus with diabetic polyneuropathy; J44.9 Chronic obstructive pulmonary disease, unspecified | CPT/HCPCS: 99213 ==

== ENCOUNTER 2021-12-15 01:12 | Outpatient (CLI) | payer MEDICARE, SELFPAY ==
--- NOTE | 2021-12-15 | DI.CT_ITS ---
Exam(s) CT ABDOMEN PELVIS W EXAM: CT ABDOMEN PELVIS W CLINICAL HISTORY: LUQ ABD PAIN, R10.12,NAUSEA,VOMITING,GERD,R11.2. TECHNIQUE: Imaging Protocol: Axial computed tomography images with coronal and sagittal reformatted images were created and reviewed CONTRAST MATERIAL: Intravenous: Omnipaque 350 Contrast volume:100 ml Oral: yes COMPARISON: CT ABD PELVIS WITH CONTRAST from 03/07/2018 CR XR HIP LT COMPLETE AP PELVIS from 09/14/[address] PELVIC WO from 09/14/2020 FINDINGS: ABDOMEN: Lung Bases: Lung normal where visualized. Small paraesophageal hernia. No visible wall thickening. Liver: Mild to moderate fatty infiltration. No measurable mass. Gallbladder and biliary tract: Cholelithiasis. No abnormal gallbladder wall thickening, distention o r biliary dilatation. Pancreas: Normal density, no abnormal calcifications or inflammatory process. Spleen: Normal. Kidneys: Normal size, contour and axis. 10 millimeters stone right renal pelvis. Mild dilatation of the right renal pelvis. Additional 5 millimeter nonobstructing stone lower pole right kidney. Cyst lateral left kidney. No masses seen. Adrenal glands: No masses seen. Abdominal Aorta: Abdominal portion non-dilated. Mild atherosclerotic changes. Soft tissues: Rectus diastasis no evidence of hernia. Bones: Old left lip rib fractures. Degenerative changes in the spine. PELVIS: Bladder: No gross wall thickening. No calculi.No focal mass. Bowel: No obstruction or bowel wall thickening. Appendix normal. Peritoneal cavity: No ascites, collection or mesenteric inflammatory response. Bones: Bilateral hip prostheses create artifact in the low pelvis obscuring visualization of the infe rior bladder and prostate. Lymph nodes: Unremarkable. Impression: 10 millimeter stone right renal pelvis. 5 millimeter nonobstructing stone lower pole right kidney. Small paraesophageal hernia. RADIATION DOSE DELIVERED: 1,505.1mGy.cm Total DLP DATA REPOSITORY: All CT scans at this facility are submitted to the National Radiology Data Registry (NRDR) Dose Index Registry (DIR) with the [employer] (ACR). RADIATION OPTIMIZATION: All CT scans at this facility use at least one of these dose optimization te chniques: automated exposure control; mA and/or kV adjustment per patient size (includes targeted exa ms where dose is matched to clinical indication); or iterative reconstruction.
[2021-12-15 13:09] LABS: CREATININE 1.3 mg/dL (0.70-1.30); Estimated GFR 54.42 (mL/min/1.73m2)
[2021-12-15] MEDS: Breeza Beverage 473 ML BTL 946 ML PO (13:19)
[2021-12-15] MEDS: Omnipaque 350 MG/ML 50 ML BTL IJ (13:20)
[2021-12-15] MEDS: Omnipaque 350 MG/ML 100 ML BTL IJ (14:22)
[2021-12-15] MEDS: Normal Saline Flush 10 ML SYR IVP (14:24)
== END 2021-12-15 01:32 ==
PROVIDERS: PCP Nurse Practitioner Family; Visit Provider Nurse Practitioner Family
DX: R10.12 Left upper quadrant pain (principal); R11.2 Nausea with vomiting, unspecified; K21.9 Gastro-esophageal reflux disease without esophagitis; K44.9 Diaphragmatic hernia without obstruction or gangrene; K76.0 Fatty (change of) liver, not elsewhere classified; K80.20 Calculus of gallbladder without cholecystitis without obstruction; N20.0 Calculus of kidney; Z96.643 Presence of artificial hip joint, bilateral; Z01.812 Encounter for preprocedural laboratory examination
CPT/HCPCS: 74177; 82565; J3490; Q9967

== ENCOUNTER → 2021-12-23 10:57 | Outpatient (BNVA) | payer MEDICARE, SELFPAY | PROVIDERS: PCP Nurse Practitioner Family; Referring Provider Nurse Practitioner Family; Visit Provider Urology | DX: N20.0 Calculus of kidney (principal); Z87.39 Personal history of other diseases of the musculoskeletal system and connective tissue | CPT/HCPCS: 99215 ==

== ENCOUNTER → 2022-02-23 10:40 | Outpatient (BNVA) | payer MEDICARE, SELFPAY | PROVIDERS: PCP Nurse Practitioner Family; Visit Provider Psychiatry & Neurology Neurology | DX: R26.81 Unsteadiness on feet (principal); R29.6 Repeated falls; R41.3 Other amnesia; R13.10 Dysphagia, unspecified; G47.33 Obstructive sleep apnea (adult) (pediatric); R32 Unspecified urinary incontinence; R35.1 Nocturia; K59.00 Constipation, unspecified; E11.40 Type 2 diabetes mellitus with diabetic neuropathy, unspecified; R53.83 Other fatigue; F32.A Depression, unspecified | CPT/HCPCS: 99215 ==

== ENCOUNTER 2022-03-21 09:59 | Inpatient (IN) | payer MEDICARE, SELFPAY ==
[2022-03-21] VITALS (35 sets, daily range): BP systolic 107–139; BP diastolic 69–86; PULSE 76–100; RESP 13–24; TEMP 36.7–37.4; O2SAT 88–100
[2022-03-21] MEDS: MORPHine 4 MG/ML SYR IVP ×2 (11:13→20:19)
--- NOTE | 2022-03-21 12:05 | DI.RAD_ITS ---
Exam(s) XR HIP LT COMPLETE AP PELVIS EXAM: XR HIP LT COMPLETE AP PELVIS INDICATION: trauma, left hip pain. COMPARISON: CR XR HIP LT COMPLETE AP PELVIS from 09/14/[address] PELVIC WO from 09/14/2020 TECHNIQUE: 2D digital imaging was performed. Three views. FINDINGS: Bilateral hip prostheses. No dislocation. Acute fracture left greater trochanter, nondisplaced. No additional fractures. Degenerative changes lower lumbar spine. IMPRESSION: Nondisplaced fracture left greater trochanter. DATA REPOSITORY: RADIATION DOSE DELIVERED:
--- NOTE | 2022-03-21 12:30 | DI.CT_ITS ---
Exam(s) CT LOWER EXTREMITY LT WO EXAM: CT LOWER EXTREMITY LT WO CLINICAL HISTORY: left hip pain, fracture on xray. TECHNIQUE: Imaging Protocol: Axial computed tomography images with coronal and sagittal reformatted images were created and reviewed. CONTRAST MATERIAL: Noncontrast COMPARISON: CT CT PELVIC WO from 09/14/2020 CR XR HIP LT COMPLETE AP PELVIS from 03/21/2022 FINDINGS: Left hip prosthesis creates artifact. Nondisplaced fracture extending obliquely from the greater tro chanter through the lesser trochanter. No additional fractures. No abnormal lucencies around the p rosthesis. IMPRESSION: Nondisplaced fracture through the intertrochanteric region the femur. Intact prosthesis. RADIATION DOSE DELIVERED: 309.22mGy.cm Total DLP DATA REPOSITORY: All CT scans at this facility are submitted to the National Radiology Data Registry (NRDR) Dose Index Registry (DIR) with the [employer] ([employer]). RADIATION OPTIMIZATION: All CT scans at this facility use at least one of these dose optimization te chniques: automated exposure control; mA and/or kV adjustment per patient size (includes targeted exa ms where dose is matched to clinical indication); or iterative reconstruction.
[2022-03-21 14:10] LABS: Abs Immature Grans 0.04 10^3/uL (0.0-0.06); Absolute Basophil Count 0.03 10^3/uL (0.0-0.2); Absolute Lymphocyte Count 1.67 10^3/uL (1.2-3.4); Absolute Monocyte Count 1.09 10^3/uL (0.1-0.8); Absolute Neutrophil Count 6.94 10^3/uL (1.2-6.7); Basophils % 0.3; HCT 37.8 % (40.0-50.0); HGB 12.5 g/dL (13.5-17.5); Immature Grans % 0.4; Lymphocytes % 16.9; MCH 30.5 pg (27.0-33.0); MCHC 33.1 % (32.0-36.0); MCV 92 fL (80-95); MPV 8.7 fL (8.0-11.0); Neutrophils % 70.4; Platelet Count 203 10^3/uL (130-400); RDW 12.7 % (11.8-14.1); RDW-SD 43.2 fL; WBC 9.87 10^3/uL (4.4-10.8)
[2022-03-21 14:36] LABS: ALT 10 U/L (16-63); AST 8 U/L (15-37); Albumin 3.4 g/dL (3.4-5.0); Alkaline Phosphatase 135 U/L (46-116); Anion Gap 9.2 mmol/L (3-11); BUN 20 mg/dL (7-18); Bilirubin, Total 0.8 mg/dL (0.2-1.0); CO2 25.8 mmol/L (21.0-32.0); CREATININE 1.1 mg/dL (0.70-1.30); Chloride 105 mmol/L (98-107); Creatine Kinase 103 U/L (39-308); Glucose 205 mg/dL (74-106); Potassium 3.8 mmol/L (3.5-5.1); Sodium 140 mmol/L (136-145); Total Protein 6.9 g/dL (6.4-8.2)
--- NOTE | 2022-03-21 15:40 | W.ED.GENAD ---
Discharge Plan Disposition Patient Disposition: [facility] Discharge Details Chief Complaint: Orthopedic Clinical Impression: Closed left hip fracture Admit Date/Time: 03/21/22 15:28 Admit Provider: Winnie Hay Attending Provider: Winnie Hay Primary Care Provider: Awilda Rollins ED Provider: Floresita Miramontes Discharge Data Discharge Date/Time-TO BE ENTERED AT DEPARTURE: 03/21/22 16:24 Medical Decision Making Valdemar Smith is a 71-year-old man with a history of Parkinson's disease, GERD, COPD, diabetes, status post bilateral hip replacement in the past presenting to emergency department with left hip pain. Patient reports that on 03/19/2022 he was using his walker as usual, tried to walk backward, lost his balance, and fell landing on his left hip. Patient reports that he did not hit his head, had no loss of consciousness. Patient reports that he has had pain in his left hip since the fall, and has been unable to walk. Patient reports that he typically walks with a walker, but even when using a walker he is unable to bear any weight on his left leg due to pain in his left hip. He has been carried to the toilet by his family and has been essentially bedbound since the fall. He denies any other pain, numbness, weakness, fever, cough, shortness of breath, vomiting, diarrhea. Patient report that he was feeling well in his usual state of health just prior to the fall, and that he did not have any presyncopal or other preceding symptoms. On exam Pt is well and non-toxic appearing. TTP left lateral hip, ROM reduced left hip, b/l LEs NVI. Otherwise unremarkable exam. Concern for likely hip fx, pelvic fx, other. Plan for xrays, IV placement, IV morphine for pain control. I reviewed hip/pelvis xrays, which show elina-prosthetic left hip fracture. I discussed Pt presentation and results with Dr. Lobo of orthopedic surgery, who requested CT for further eval. I reviewed CT hip images. CT hip discussed with Dr. Lobo, who stated stable non-op fracture, recommended inpatient admission to medicine for PT, further eval. Screening labs ordered for admission. Pt admitted to Dr. Hay. Medical Records Medical records reviewed: Yes I reviewed the patient's medical records. HPI General Date/Time Provider Initiated Documentation: 03/21/22 11:02. Limitations to Documentation: no limitations. Information obtained by: patient, RN notes reviewed and old records reviewed. HPI Narrative: Valdemar Smith is a 71-year-old man with a history of Parkinson's disease, GERD, COPD, diabetes, status post bilateral hip replacement in the past presenting to emergency department with left hip pain. Patient reports that on 03/19/2022 he was using his walker as usual, tried to walk backward, lost his balance, and fell landing on his left hip. Patient reports that he did not hit his head, had no loss of consciousness. Patient reports that he has had pain in his left hip since the fall, and has been unable to walk. Patient reports that he typically walks with a walker, but even when using a walker he is unable to bear any weight on his left leg due to pain in his left hip. He has been carried to the toilet by his family and has been essentially bedbound since the fall. He denies any other pain, numbness, weakness, fever, cough, shortness of breath, vomiting, diarrhea. Patient report that he was feeling well in his usual state of health just prior to the fall, and that he did not have any presyncopal or other preceding symptoms. Related Data Home Medications Medication Instructions Recorded Confirmed glipizide 10 mg tablet 10 mg PO DAILY 04/20/16 03/21/22 lisinopril 10 mg tablet 10 mg PO DAILY 04/20/16 03/21/22 gabapentin 300 mg capsule 900 mg PO TID cap 04/17/19 03/21/22 cholecalciferol (vitamin D3) 25 1,000 unit PO DAILY 06/13/19 03/21/22 mcg (1,000 unit) capsule ascorbate calcium (vitamin C) 500 500 mg PO DAILY 08/12/20 03/21/22 mg tablet fluoxetine 40 mg capsule 40 mg PO DAILY 03/24/21 03/21/22 sucralfate 1 gram tablet 1 g PO QACHS 08/25/21 03/21/22 cyanocobalamin (vitamin B-12) 1,000 mcg PO DAILY 12/21/21 03/21/22 1,000 mcg tablet famotidine 20 mg tablet 20 mg PO DAILY 12/21/21 03/21/22 metformin 500 mg tablet 500 mg PO BID 12/21/21 03/21/22 pravastatin 40 mg tablet 40 mg PO DAILY 12/21/21 03/21/22 amantadine HCl 100 mg tablet 100 mg PO BID #180 tab 02/23/22 03/21/22 carbidopa 25 mg-levodopa 100 mg 1 tab PO TID #270 tab 02/23/22 03/22/22 tablet carbidopa 25 mg-levodopa 250 mg 1 tab PO TID #360 tab 02/23/22 03/22/22 tablet docusate sodium 100 mg tablet 200 mg PO DAILY #180 tab 02/23/22 03/21/22 fluticasone propionate 50 1 spray INTRANASAL BID 02/23/22 03/21/22 mcg/actuation nasal spray,suspension (Flonase Allergy Relief) oxybutynin chloride 5 mg tablet 5 mg PO BID tab 02/23/22 03/21/22 rivastigmine tartrate 3 mg capsule See Rx Instructions .ROUTE 03/07/22 03/21/22 .COMPLEX #180 cap pantoprazole 40 mg tablet,delayed 40 mg PO BID 03/21/22 03/21/22 release Previous Rx's Medication Instructions Recorded amantadine HCl 100 mg tablet 100 mg PO BID #180 tab 02/23/22 carbidopa 25 mg-levodopa 100 mg 1 tab PO TID #270 tab 02/23/22 tablet carbidopa 25 mg-levodopa 250 mg 1 tab PO TID #360 tab 02/23/22 tablet docusate sodium 100 mg tablet 200 mg PO DAILY #180 tab 02/23/22 rivastigmine tartrate 3 mg capsule See Rx Instructions .ROUTE 03/07/22 .COMPLEX #180 cap Allergies Allergy/AdvReac Type Severity Reaction Status Date / Time bupropion HCl AdvReac Intermediate shakey/metal Verified 03/21/22 10:24 [From Wellbutrin] taste/off balance Penicillins AdvReac Intermediate Skin Rash Verified 03/21/22 10:24 foam tape Allergy Intermediate Skin Rash Uncoded 03/21/22 10:24 General Stated Complaint: Orthopedic LORA: 3 Review of Systems Narrative: Constitutional: denies fevers Eyes: denies eye pain ENT: denies ear pain, dental pain, sore throat Cardiovascular: denies chest pain, edema Respiratory: denies SOB, cough GI: denies abdominal pain, vomiting, diarrhea : denies flank pain MSK: reports left hip pain, denies back pain, neck pain, other arthralgias, myalgias Skin: denies rash Neuro: denies headaches, numbness, weakness PFSH All Active Problems (Updated 03/22/22 @ 13:34 by Floresita Miramontes MD) Closed left hip fracture (Acute) Discharge planning issues (Acute) DVT prophylaxis (Acute) Pain, acute due to trauma (Acute) Ambulatory dysfunction (Acute) Periprosthetic hip fracture (Acute) Right kidney stone (Acute) Nocturia (Acute) Frequent falls (Acute) Progressive supranuclear palsy (Chronic) Anxiety (Chronic) Diabetic neuropathy (Acute) Urinary incontinence (Acute) Constipation (Acute) Memory loss (Acute) Gait abnormality (Acute) H/O esophagogastroduodenoscopy (Chronic ~04/29/19) Fever (Acute) Confusion (Acute) Right hip pain (Acute) GERD (gastroesophageal reflux disease) (Chronic) COPD (chronic obstructive pulmonary disease) (Chronic) S/P total knee replacement (Acute) S/P Arcadio fundoplication (without gastrostomy tube) procedure (Acute) [place] [facility] [place] (Chronic) Obesity (Chronic) Hyperlipidemia (Acute) Insomnia (Acute) Diverticulosis (Acute) Sleep apnea (Acute) Osteoarthritis (Chronic) History of colonic polyps (Acute) History of kidney stones (Acute) History of cardiac cath (Chronic) Shoulder joint pain (Acute) Cerumen impaction (Acute) History of total hip arthroplasty (Acute) Incisional hernia (Acute) Inguinal hernia (Acute) Chronic low back pain (Acute) Unsteady gait (Acute) Difficulty swallowing (Acute) Behavioral and psychological symptoms of dementia (Acute) Diabetes mellitus (Chronic) Medical History (Updated 03/22/22 @ 13:34 by Floresita Miramontes MD) Esophageal stricture GERD (gastroesophageal reflux disease) Hiatal hernia Surgical History History of colonoscopy History of lumbar laminectomy for spinal cord decompression History of shoulder surgery Total replacement of hip Family History Mother Dementia COPD (chronic obstructive pulmonary disease) Other Cancer Diabetes Heart disease Social History Smoking/Tobacco Use Status: Never Smoking risk assessment performed?: Yes Alcohol Intake: current Alcohol Intake frequency: holidays/special occasions only Drug use: Never Substance use type: does not use Details: alcohol: one year Household members: spouse Housing: house Number of Children: 2 number of grandchildren: 3 Pets and animals: Yes Pets and animals: dog(s) What is your relationship status?: Panel score (0-1 are the most socially isolated patients): 1 What type of physical activity do you participate in: none Seatbelt use: always Do you feel safe at home: Yes Do you feel safe in your relationship?: Yes Exam Narrative Exam Narrative: Constitutional: well and [id number], pleasant, conversing normally HENT: head atraumatic/normocephalic/normal inspection, mucous membranes moist Eyes: conjunctiva normal, sclera normal, pupils 3mm b/l Neck: no stridor, normal ROM, trachea midline Chest: normal inspection Resp: normal work of breathing, speaking in full sentences Cardio: normal rate, normal rhythm GI: abdomen soft, non-tender, non-distended Skin: warm, dry, normal color, no rash Neuro: alert, not altered, grossly non-focal, motor 5/5 b/l LEs, normal tone Ext: PT pulses intact and symmetric, left hip with lateral TTP, no anterior TTP of the left hip, no right hip TTP, pelvis stable to anterior and lateral compression, ROM right hip full and painless, ROM left hip limited secondary to left hip pain, ROM left knee and ankle full and painless, no lower extremity edema, no posterior calf TTP Psych: normal mood, normal affect, normal behavior Course Vital Signs Vital signs: Vital Signs Temperature 36.7 C 03/21/22 10:15 Pulse 98 H 03/21/22 10:15 Respiratory Rate 16 03/21/22 10:15 Blood Pressure 139/84 03/21/22 10:15 Pulse Oximetry 96 03/21/22 10:15 Temperature 36.7 C 03/21/22 10:17 Temperature Source Temporal Artery Scan 03/21/22 10:17 Pulse 96 H 03/21/22 11:31 Pulse 93 H 03/21/22 13:20 Respiratory Rate 24 03/21/22 13:20 Respiratory Effort Non-Labored 03/21/22 10:20 Blood Pressure 117/77 03/21/22 11:31 Blood Pressure Mean 87 03/21/22 11:31 Blood Pressure Position Supine 03/21/22 10:17 Pulse Oximetry 97 03/21/22 13:20 Oxygen Delivery Method Room Air 03/21/22 10:17 Oxygen Flow Rate 0 03/21/22 10:17 Pain Level 7 03/21/22 11:13 Lab/Test Results Lab/Test Results: Laboratory Tests Range/Units 03/21/22 03/21/22 14:00 14:00 WBC (4.4-10.8) 10^3/uL 9.87 RBC (4.36-5.78) 10^6/uL 4.10 L Hgb (13.5-17.5) g/dL 12.5 L Hct (40.0-50.0) % 37.8 L MCV (80-95) fL 92 MCH (27.0-33.0) pg 30.5 MCHC (32.0-36.0) % 33.1 RDW (11.8-14.1) % 12.7 Plt Count (130-400) 10^3/uL 203 MPV (8.0-11.0) fL 8.7 Immature Gran % 0.4 Neutrophils % 70.4 Lymphocytes % 16.9 Monocytes % 11.0 Eosinophils % 1.0 Basophils % 0.3 Nucleated RBC % (0.0-0.3) % 0.0 Absolute Neutrophils (1.2-6.7) 10^3/uL 6.94 H Absolute Lymphocytes (1.2-3.4) 10^3/uL 1.67 Absolute Monocytes (0.1-0.8) 10^3/uL 1.09 H Absolute Eosinophils (0.0-0.7) 10^3/uL 0.10 Absolute Basophils (0.0-0.2) 10^3/uL 0.03 Sodium (136-145) mmol/L 140 Potassium (3.5-5.1) mmol/L 3.8 Chloride (98-107) mmol/L 105 Carbon Dioxide (21.0-32.0) mmol/L 25.8 Anion Gap (3-11) mmol/L 9.2 BUN (7-18) mg/dL 20 H Creatinine (0.70-1.30) mg/dL 1.1 Estimated GFR/1.73 m2 (mL/min/1.73m2) >= 60.00 Glucose (74-106) mg/dL 205 H Calcium (8.5-10.1) mg/dL 8.0 L Total Bilirubin (0.2-1.0) mg/dL 0.8 AST (15-37) U/L 8 L ALT (16-63) U/L 10 L Alkaline Phosphatase (46-116) U/L 135 H Creatine Kinase (39-308) U/L 103 Total Protein (6.4-8.2) g/dL 6.9 Albumin (3.4-5.0) g/dL 3.4
[2022-03-21 15:42] LABS: Source Nasal/Nares
[2022-03-21 16:29] LABS: COVID-19 PCR Negative (Negative)
[2022-03-21] MEDS: Insulin Aspart 300 UNITS/3 ML PEN SC ×2 (18:10→22:14)
--- NOTE | 2022-03-21 18:47 | W.PM.HP.N ---
Date of service: 03/21/22 Time of Service: 18:47 Assessment and Plan Assessment and plan (1) Periprosthetic hip fracture: Status: Acute Assessment and plan: Nonoperative management. Consult orthopedics. PT consult. Pain control, bowel regimen. Will need rehab. (2) Ambulatory dysfunction: Status: Acute Assessment and plan: Due to above, as above (3) Pain, acute due to trauma: Status: Acute Assessment and plan: Due to above, as above (4) Diabetes mellitus: Status: Chronic Assessment and plan: Continue outpatient oral therapy with SSI. (5) Progressive supranuclear palsy: Status: Chronic Assessment and plan: Cause of his Parkinsonism. Continue outpatient sinemet. (6) Difficulty swallowing: Status: Acute Assessment and plan: Due to above. Consult speech therapy (7) DVT prophylaxis: Status: Acute Assessment and plan: SCDs (will investigate why the patient is on PPI BID - suspect h/o GI bleed) (8) Discharge planning issues: Status: Acute Assessment and plan: DNR but not DNI Consult palliative care Consult PT. Will need SNF placement History of Present Illness History of Present Illness Chief Complaint: Fall, left hip pain Narrative: Mr Smith is a 71 year old male with PMHx of Parkinsonism/Progressive supranuclear palsy, ambulatory dysfunction with known falls, NIDDM2, dementia who is s/p B THR and who sustained a mechanical fall on Monday while trying to back up while using a walker, since which he has not been able to bear weight on LLE/ambulate. The patient's evaluation today in the ED revealed a nondisplaced fracture through the intertrochanteric region of the femur with an intact prosthesis. Dr Lobo was consulted by the ED and recommended non-operative management with 4 point ambulation with PT and admission to SNF for subacute rehab. His pain is controlled at the time of my exam. The patient endorses have dysphagia, but does not follow a modified diet. He agrees to a owens catheter with urojet for placement. He would like to be DNR but would be willing to consider intubation. Review of Systems All systems reviewed & are unremarkable except as noted in HPI and below PFSH All Active Problems (Updated 03/21/22 @ 18:58 by Winnie Hay MD) Discharge planning issues (Acute) DVT prophylaxis (Acute) Pain, acute due to trauma (Acute) Ambulatory dysfunction (Acute) Periprosthetic hip fracture (Acute) Right kidney stone (Acute) Nocturia (Acute) Frequent falls (Acute) Progressive supranuclear palsy (Chronic) Anxiety (Chronic) Diabetic neuropathy (Acute) Urinary incontinence (Acute) Constipation (Acute) Memory loss (Acute) Gait abnormality (Acute) H/O esophagogastroduodenoscopy (Chronic ~04/29/19) Fever (Acute) Confusion (Acute) Right hip pain (Acute) GERD (gastroesophageal reflux disease) (Chronic) COPD (chronic obstructive pulmonary disease) (Chronic) S/P total knee replacement (Acute) S/P Arcadio fundoplication (without gastrostomy tube) procedure (Acute[place] [facility] [place] (Chronic) Obesity (Chronic) Hyperlipidemia (Acute) Insomnia (Acute) Diverticulosis (Acute) Sleep apnea (Acute) Osteoarthritis (Chronic) History of colonic polyps (Acute) History of kidney stones (Acute) History of cardiac cath (Chronic) Shoulder joint pain (Acute) Cerumen impaction (Acute) History of total hip arthroplasty (Acute) Incisional hernia (Acute) Inguinal hernia (Acute) Chronic low back pain (Acute) Unsteady gait (Acute) Difficulty swallowing (Acute) Behavioral and psychological symptoms of dementia (Acute) Diabetes mellitus (Chronic) Medical History (Updated 03/21/22 @ 18:58 by Winnie Hay MD) Esophageal stricture GERD (gastroesophageal reflux disease) Hiatal hernia Surgical History History of colonoscopy History of lumbar laminectomy for spinal cord decompression History of shoulder surgery Total replacement of hip Family History Mother Dementia COPD (chronic obstructive pulmonary disease) Other Cancer Diabetes Heart disease Social History Smoking/Tobacco Use Status: Never Smoking risk assessment performed?: Yes Alcohol Intake: current Alcohol Intake frequency: holidays/special occasions only Drug use: Never Substance use type: does not use Details: alcohol: one year Household members: spouse Housing: house Number of Children: 2 number of grandchildren: 3 Pets and animals: Yes Pets and animals: dog(s) What is your relationship status?: Panel score (0-1 are the most socially isolated patients): 1 What type of physical activity do you participate in: none Seatbelt use: always Do you feel safe at home: Yes Do you feel safe in your relationship?: Yes Meds Allergies and Home Medications Allergies Allergy/AdvReac Type Severity Reaction Status Date / Time bupropion HCl AdvReac Intermediate shakey/metal Verified 03/21/22 10:24 [From Wellbutrin] taste/off balance Penicillins AdvReac Intermediate Skin Rash Verified 03/21/22 10:24 foam tape Allergy Intermediate Skin Rash Uncoded 03/21/22 10:24 Home Medications Medication Instructions Recorded Confirmed Type glipizide 10 mg tablet 10 mg PO DAILY 04/20/16 03/21/22 History lisinopril 10 mg tablet 10 mg PO DAILY 04/20/16 03/21/22 History gabapentin 300 mg capsule 900 mg PO TID cap 04/17/19 03/21/22 History cholecalciferol (vitamin D3) 25 1,000 unit PO DAILY 06/13/19 03/21/22 History mcg (1,000 unit) capsule ascorbate calcium (vitamin C) 500 500 mg PO DAILY 08/12/20 03/21/22 History mg tablet fluoxetine 40 mg capsule 40 mg PO DAILY 03/24/21 03/21/22 History sucralfate 1 gram tablet 1 g PO QACHS 08/25/21 03/21/22 History cyanocobalamin (vitamin B-12) 1,000 mcg PO DAILY 12/21/21 03/21/22 History 1,000 mcg tablet famotidine 20 mg tablet 20 mg PO DAILY 12/21/21 03/21/22 History metformin 500 mg tablet 500 mg PO BID 12/21/21 03/21/22 History pravastatin 40 mg tablet 40 mg PO DAILY 12/21/21 03/21/22 History amantadine HCl 100 mg tablet 100 mg PO BID #180 tab 02/23/22 03/21/22 Rx carbidopa 25 mg-levodopa 100 mg 1 tab PO TID #270 tab 02/23/22 03/21/22 Rx tablet carbidopa 25 mg-levodopa 250 mg 1 tab PO TID #360 tab 02/23/22 03/21/22 Rx tablet docusate sodium 100 mg tablet 200 mg PO DAILY #180 tab 02/23/22 03/21/22 Rx fluticasone propionate 50 1 spray INTRANASAL BID 02/23/22 03/21/22 History mcg/actuation nasal spray,suspension (Flonase Allergy Relief) oxybutynin chloride 5 mg tablet 5 mg PO BID tab 02/23/22 03/21/22 History rivastigmine tartrate 3 mg capsule See Rx Instructions .ROUTE 03/07/22 03/21/22 Rx .COMPLEX #180 cap pantoprazole 40 mg tablet,delayed 40 mg PO BID 03/21/22 03/21/22 History release Exam Narrative Exam Narrative: General: Pleasant obese elderly male who is A&Ox2-3 (knows it's March 21 but does not remember the year), appears comfortable in bed Neurological: A&Ox2-3, no obvious rigidity on exam, no focal deficits Psychiatric: Appropriate speech pattern/content Skin: Visible skin intact HEENT: Atraumatic, normocephalic, EOMI, dry MM, clear oropharynx, no submandibular or cervical lymphadenopathy, no goiter or JVD Cardiovascular: RRR, no m/r/g Lungs: CTAB Gastrointestinal: soft, nontender, nondistended Genitourinary: deferred Extremities: no edema BLE's, not moving LLE. Results Imaging Additional studies: CT L hip w/o contras: Nondisplaced fracture through the intertrochanteric region the femur.? Intact prosthesis. XR L hip: Nondisplaced fracture left greater trochanter. Labs Result diagrams: 03/21/22 14:00 03/21/22 14:00 Labs: Laboratory Results - last 24 hr 03/21/22 03/21/22 03/21/22 14:00 14:00 15:35 WBC 9.87 RBC 4.10 L Hgb 12.5 L Hct 37.8 L MCV 92 MCH 30.5 MCHC 33.1 RDW 12.7 Plt Count 203 MPV 8.7 Immature Gran % 0.4 Neutrophils % 70.4 Lymphocytes % 16.9 Monocytes % 11.0 Eosinophils % 1.0 Basophils % 0.3 Nucleated RBC % 0.0 Absolute Neutrophils 6.94 H Absolute Lymphocytes 1.67 Absolute Monocytes 1.09 H Absolute Eosinophils 0.10 Absolute Basophils 0.03 Sodium 140 Potassium 3.8 Chloride 105 Carbon Dioxide 25.8 Anion Gap 9.2 BUN 20 H Creatinine 1.1 Estimated GFR/1.73 m2 >= 60.00 Glucose 205 H Calcium 8.0 L Total Bilirubin 0.8 AST 8 L ALT 10 L Alkaline Phosphatase 135 H Creatine Kinase 103 Total Protein 6.9 Albumin 3.4 COVID-19 Source Nasal/Nares SARS-CoV-2 (PCR) Negative Last Vital Signs Temp 37.2 C 03/21/22 17:01 Pulse 85 03/21/22 17:01 Resp 16 03/21/22 17:01 BP 107/72 03/21/22 17:01 Pulse Ox 95 03/21/22 17:01
[2022-03-21] MEDS: Lidocaine 2% Jelly 11 ML SYR UR (20:09)
[2022-03-21] MEDS: Normal Saline Flush 10 ML SYR IVP (20:20)
[2022-03-21 20:42] LABS: Bilirubin Negative (Negative); Blood Negative (Negative); Clarity Clear (Clear); Glucose 500 mg/dL (Negative); Ketones Trace mg/dL (Negative); Leukocyte Esterase Negative (Negative); Nitrite Negative (Negative); Specific Gravity >= 1.030 (1.005-1.025); pH 5.5 (5-8)
[2022-03-21 20:58] LABS: Epithelial Cells Few HPF (Negative); Other Cells Few Spermatozoa (Negative); WBC 0-2 HPF (0-5)
[2022-03-21 20:59] LABS: Bacteria Negative HPF (Negative); C & S Indicated? C&S Done As Ordered; Crystals Negative HPF (Negative); Mucus Negative (Negative)
[2022-03-21] MEDS: Rivastigmine 1.5 MG CAP 3 MG PO (22:08)
[2022-03-21] MEDS: Fluticasone NASAL SPRAY 16 GM BTL NS (22:09)
[2022-03-21] MEDS: Pantoprazole 40 MG TABCR PO (22:09)
[2022-03-21] MEDS: Gabapentin 300 MG CAP 900 MG PO (22:09)
[2022-03-21] MEDS: Carbidopa 25/Levodopa 100 TAB PO (22:09)
[2022-03-21] MEDS: metFORMIN 500 MG TAB PO (22:09)
[2022-03-21] MEDS: Docusate Sodium 100 MG CAP PO (22:09)
[2022-03-21] MEDS: Oxybutynin 5 MG TAB PO (22:26)
[2022-03-21] MEDS: Acetaminophen 500 MG TAB 1000 MG PO (23:15)
[2022-03-21] MEDS: Sucralfate 1 GM TAB PO (23:15)
[2022-03-22] MEDS: MORPHine 4 MG/ML SYR IVP ×3 (02:58→12:34)
[2022-03-22] MEDS: Normal Saline Flush 10 ML SYR IVP (02:59)
[2022-03-22] MEDS: Docusate Sodium 100 MG CAP PO (07:58)
[2022-03-22] MEDS: Fluticasone NASAL SPRAY 16 GM BTL NS ×2 (07:58→20:09)
[2022-03-22] MEDS: Pravastatin 40 MG TAB PO (07:58)
[2022-03-22] MEDS: FLUoxetine 20 MG CAP 40 MG PO (08:00)
[2022-03-22] MEDS: Ascorbic Acid 500 MG TAB PO (08:00)
[2022-03-22] MEDS: Carbidopa 25/Levodopa 100 TAB PO ×3 (08:00→17:10)
[2022-03-22] MEDS: Lisinopril 10 MG TAB PO (08:00)
[2022-03-22] MEDS: Famotidine 20 MG TAB PO (08:00)
[2022-03-22] MEDS: Pantoprazole 40 MG TABCR PO ×2 (08:00→20:11)
[2022-03-22] MEDS: Gabapentin 300 MG CAP 900 MG PO ×3 (08:00→20:10)
[2022-03-22] MEDS: metFORMIN 500 MG TAB PO ×2 (08:00→17:16)
[2022-03-22] MEDS: Sucralfate 1 GM TAB PO ×4 (08:00→22:08)
[2022-03-22] MEDS: glipiZIDE 10 MG TAB PO (08:01)
[2022-03-22] MEDS: Cholecalciferol (Vitamin D3) 1,000 UNIT TAB 1000 UNITS PO (08:01)
[2022-03-22] MEDS: Acetaminophen 500 MG TAB 1000 MG PO ×3 (08:01→22:07)
[2022-03-22] MEDS: Insulin Aspart 300 UNITS/3 ML PEN SC ×3 (08:02→22:08)
[2022-03-22 08:14] VITALS: BP 120/79; PULSE 82; RESP 22; TEMP 36.7; O2SAT 94
--- NOTE | 2022-03-22 08:53 | PDOC.CMIN ---
- If Service Date Differs Date of service: 03/22/22 Time of Service: 08:53 Care Management Initial Assess REASON FOR HOSPITALIZATION:: Periprosthetic L hip fracture/traumatic PAST MEDICAL HISTORY/PAST SURGICAL HISTORY:: All Active Problems (Updated 03/21/22 @ 18:58 by Winnie Hay MD). Discharge planning issues (Acute). DVT prophylaxis (Acute). Pain, acute due to trauma (Acute). Ambulatory dysfunction (Acute). Periprosthetic hip fracture (Acute). Right kidney stone (Acute). Nocturia (Acute). Frequent falls (Acute). Progressive supranuclear palsy (Chronic). Anxiety (Chronic). Diabetic neuropathy (Acute). Urinary incontinence (Acute). Constipation (Acute). Memory loss (Acute). Gait abnormality (Acute). H/O esophagogastroduodenoscopy (Chronic ~04/29/19). Fever (Acute). Confusion (Acute). Right hip pain (Acute). GERD (gastroesophageal reflux disease) (Chronic). COPD (chronic obstructive pulmonary disease) (Chronic). S/P total knee replacement (Acute). S/P Arcadio fundoplication (without gastrostomy tube) procedure (Acute). [place] [facility] [place] (Chronic). Obesity (Chronic). Hyperlipidemia (Acute). Insomnia (Acute). Diverticulosis (Acute). Sleep apnea (Acute). Osteoarthritis (Chronic). History of colonic polyps (Acute). History of kidney stones (Acute). History of cardiac cath (Chronic). Shoulder joint pain (Acute). Cerumen impaction (Acute). History of total hip arthroplasty (Acute). Incisional hernia (Acute). Inguinal hernia (Acute). Chronic low back pain (Acute). Unsteady gait (Acute). Difficulty swallowing (Acute). Behavioral and psychological symptoms of dementia (Acute). Diabetes mellitus (Chronic). Medical History (Updated 03/21/22 @ 18:58 by Winnie Hay MD). Esophageal stricture. GERD (gastroesophageal reflux disease). Hiatal hernia. Surgical History . History of colonoscopy. History of lumbar laminectomy for spinal cord decompression. History of shoulder surgery. Total replacement of hip PREVIOUS FUNCTIONAL STATUS/SOCIAL/FAMILY SUPPORTS:: Valdemar lives in [place] with his [place]. 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 Valdemar no longer drives, he uses a cane and is independent at baseline. CURRENT FUNCTIONAL STATUS:: Valdemar was sitting up in his chair visiting with his [place] when CM met with him. He had just worked with PT. Valdemar is agreeable to SNF referrals for STR. Referrals were sent to [facility] and [facility]. ADVANCE DIRECTIVES:: None on file Has patient been provided with info about the portal/API?: Yes Did the patient sign up for the portal?: No CODE STATUS:: DNI INSURANCE COVERAGE / FINANCIAL ISSUES:: AARP. Medicare CURRENT HOME/COMMUNITY SERVICES/EQUIPMENT:: [facility] PT, ST, OT PRIMARY CARE PHYSICIAN:: Awilda Rollins POTENTIAL DISCHARGE NEEDS:: SNF for STR, Follow up appointments PATIENT/FAMILY EDUCATION NEEDS:: Review discharge instructions, limitations, medications and plan to follow up with community providers. ask me three. TRANSPORTATION:: Dependent on disposition. PLAN:: Valdemar will need SNF for STR prior to returning home. SNF referral's were sent to [facility], [facility] and [facility]. Transportation will be dependent on disposition and mobility level at time of discharge. CM will continue to support discharge planning needs.
[2022-03-22 10:53] VITALS: BP 127/80; PULSE 79; RESP 18; TEMP 36.8; O2SAT 93
[2022-03-22] MEDS: Cyanocobalamin 500 MCG TAB 1000 MCG PO (11:00)
[2022-03-22] MEDS: Rivastigmine 1.5 MG CAP 3 MG PO ×2 (11:00→20:11)
[2022-03-22] MEDS: Oxybutynin 5 MG TAB PO ×2 (11:00→20:12)
--- NOTE | 2022-03-22 12:23 | W.INDIABCONS ---
Date of service: 03/22/22 Time of Service: 12:23 Diabetes Inpatient Consult Reason for Visit: dm DESCRIPTION/ASSESSMENT: 71 year old male admitted s/p fall. PMH: DM2, obesity, dementia. Following diabetic diet with adequate intake. No considered at nutritional risk. Home DM meds: 500 mg metformin BID. No recent A1C. PLAN: Check A1C, follow up as needed Time Spent in Nutritional Counseling and Treatment: 0
--- NOTE | 2022-03-22 12:37 | W.SPSTE ---
Date of service: 03/22/22 Time of Service: 12:00 Subjective Referral received for Clinical Swallow Evaluation by Winnie Hay given known/endorsed hx dysphagia. Patient was contacted semi-reclined in his bed. Repositioned to reverse-trendelenberg position for this exam. Patient complains of hip pain, unable to rate. PT/RN notified. Initially patient was unaccompanied, EPITAXIAL REACTOR TECHNICIAN returning later in the day to provide education & recommendations and to obtain further subjective report from patient's . Patient endorses pharyngeal stasis (especially with small dry foods such as rice) localized approx. to level of PES. Gets worse throughout the course of a meal. Occasional coughing with both solids and liquids. His endorses this report as well. She also reports he is followed through home health by EPITAXIAL REACTOR TECHNICIAN Amna Bell. He was scheduled to have MBSS performed yesterday (03/21) but did not attend due to this hospital admission. She also shares that home health EPITAXIAL REACTOR TECHNICIAN also works with patient to train communication strategies given report of difficulty speaking loudly and that his has difficulty understanding him lately. History of Present Illness History of Present Illness?Chief Complaint: Fall, left hip pain? Narrative: Mr Smith is a 71 year old male with PMHx of Parkinsonism/Progressive supranuclear palsy, ambulatory dysfunction with known falls, NIDDM2, COPD, GERD and hiatal hernia (s/p arcadio fundoplication x2), esophageal stricture, and dementia who is s/p B THR and who sustained a mechanical fall on Monday while trying to back up while using a walker. Admitted with a nondisplaced fracture of hip with an intact prosthesis. Plan for non-operative management with 4 point ambulation with PT and admission to SNF for subacute rehab. The patient endorses have dysphagia, but does not follow a modified diet. He is followed by home health EPITAXIAL REACTOR TECHNICIAN. PFSH All Active Problems?(Updated 03/21/22 @ 18:58 by Winnie Hay MD) Discharge planning issues (Acute) DVT prophylaxis (Acute) Pain, acute due to trauma (Acute) Ambulatory dysfunction (Acute) Periprosthetic hip fracture (Acute) Right kidney stone (Acute) Nocturia (Acute) Frequent falls (Acute) Progressive supranuclear palsy (Chronic) Anxiety (Chronic) Diabetic neuropathy (Acute) Urinary incontinence (Acute) Constipation (Acute) Memory loss (Acute) Gait abnormality (Acute) H/O esophagogastroduodenoscopy (Chronic ~04/29/19) Fever (Acute) Confusion (Acute) Right hip pain (Acute) GERD (gastroesophageal reflux disease) (Chronic) COPD (chronic obstructive pulmonary disease) (Chronic) S/P total knee replacement (Acute) S/P Arcadio fundoplication (without gastrostomy tube) procedure (Acute[facility] [place] Obesity (Chronic) Hyperlipidemia (Acute) Insomnia (Acute) Diverticulosis (Acute) Sleep apnea (Acute) Osteoarthritis (Chronic) History of colonic polyps (Acute) History of kidney stones (Acute) History of cardiac cath (Chronic) Shoulder joint pain (Acute) Cerumen impaction (Acute) History of total hip arthroplasty (Acute) Incisional hernia (Acute) Inguinal hernia (Acute) Chronic low back pain (Acute) Unsteady gait (Acute) Difficulty swallowing (Acute) Behavioral and psychological symptoms of dementia (Acute) Diabetes mellitus (Chronic) Medical History?(Updated 03/21/22 @ 18:58 by Winnie Hay MD) Esophageal stricture GERD (gastroesophageal reflux disease) Hiatal hernia Surgical History? History of colonoscopy History of lumbar laminectomy for spinal cord decompression History of shoulder surgery Total replacement of hip Objective Objective Predisposing dysphagia risk factors: COPD, GERD, esophageal stricture, ?PSP/Parkinsonism Clinical signs of possible chronic dysphagia: Endorses frequent stasis localized to pharyngo-esophageal segment. Precipitating dysphagia risk factors / triggering event: n/a; consult placed due to patient's self-reported history on admit. Speech: 100% comprehensible to this listener at close distance, though with mildly reduced volume. No fast rate or other dysarthric characteristics appreciated. Language: [facility] Mental Status: Oriented to self, situation, recent events. Demonstrates good insight into swallow and speech deficits. Oral Peripheral/Motor Assessment: Unremarkable. Food items tested: ?? [ ] None. Further swallow assessment not warranted at this time.? [ ] Ice: [X] IDDSI 0: [ ] IDDSI 1: [ ] IDDSI 2: [ ] IDDSI 3: [ ] IDDSI 4: [ ] IDDSI 5: [ ] IDDSI 6: [X] IDDSI 7: [ ] Pill/tablet: ? Oral phase: [X] WFL [ ] Leakage from mouth [ ] Difficulty with bolus manipulation [ ] Difficulty with a-p transport [ ] Difficulty chewing [ ] Pocketing [ ] Residue Pharyngeal phase: [ ] WFL [ ] Delayed swallow initiation [ ] Reduced hyolaryngeal elevation/excursion [ ] Cough after swallow [ ] Voice change after swallow? [ ] Throat clearing? [X ] Endorsed stasis? Education Provided to patient & family re: Normal vs disordered swallowing, impact of COPD, GERD, stricture, Parkinsonism on swallow function, rationale for increased oral care, and rationale for recommended strategies, precautions, and diet consistency recommendations. Assessment Likely at least mild, chronic pharyngo-esophageal dysphagia given known esophageal stricture as well as chronic h/o GERD with arcadio fundoplication x2 and in setting of COPD and ?PSP parkinsonism. Patient without significant oral weakness or residue this date. No s/sx aspiration noted on exam this date, but patient would benefit from modified diet to minimize work of mastication & breathing and to promote pharyngeal clearance of solids given his complaints of frequent stasis. Pt would benefit from re-evaluation by EPITAXIAL REACTOR TECHNICIAN at discharge location (SNF). He is likely to reschedule MBSS at [facility], or he is welcome to return to [facility] for MBSS on outpatient basis. Patient appears to be a good candidate for EPITAXIAL REACTOR TECHNICIAN rehabilitation/therapy at discharge location to continue to train aspiration precaution and swallow strategies. No further inpatient EPITAXIAL REACTOR TECHNICIAN services are warranted at this time. Please re-consult PRN. Recommendations: DIET CONSISTENCIES: IDDSI Level(s) 6-Soft & Bite-Sized Solids 0-Thin Liquids Medication Intake: One at a time in pudding/applesauce or thin liquids as tolerated. Cut or crush large pills as able to prevent stasis. Alter medications only as advised by MD or Pharmacist ? RISK MANAGEMENT: Oral hygiene [BID/2x per day, q4h/every 4 hours] and before/after PO intake using friction with toothbrush on all oral structures as tolerated HOB upright as tolerated; upright for all PO intake. Encourage physical mobility as tolerated. ? Level of Assistance/Supervision: Distant supervision to monitor for s/sx aspiration and to provide intermittent feeding assist PRN. PO intake only when awake/alert? ? Strategies/Adaptations/Assistive Equipment: Reduce auditory and/or visual distractions when eating, Provide verbal and/or visual cues to use recommended strategies: Small sips and bites when eating, Slow rate of intake, Alternate intake of liquids and solids ? Posture/Positioning Needs: Maintain upright position at least 30 minutes after meals, Avoid meals/snacks 2-3 hours prior to reclining/sleeping, Sleep with head of bed elevated to reduce likelihood of nocturnal reflux Plan No further inpatient EPITAXIAL REACTOR TECHNICIAN services at this time. Patient to follow up as outpatient for MBSS, [facility] or [facility]. Time spent: 40 minutes CPT Code: 96405 Clinical Swallow Evaluation Coding
--- NOTE | 2022-03-22 12:52 | PT.INIE ---
Date of service: 03/22/22 Time of Service: 12:52 PT Notes Visit Reasons: periprosthetic L hip fracture/traumatic Physical Therapy Inpatient Initial Evaluation Date: 03/22/2022 Referring Doctor: Winnie Hay MD PT Orders: PT CONSULT: Limited ability Precautions: 1. High fall risk. 2. Per Emeterio Ac: WBAT on L LE with AD. 3. Per Dr. Lobo: No active abduction on L hip (fully assist L LE to edge of bed for sit<>supine). No adduction past midline (no crossing of legs). Patient Profile/Admitting Diagnosis: Valdemar is a 71-year-old male with past medical history significant for Parkinson's Disease, progressive supranuclear palsy, and bilateral total hip arthroplasties who presented to the ED on 03/21/2022 with left hip pain sustained from a fall. Patient is diagnosed with oblique non-displaced intertrochanteric fracture on the left side with CT scan showing intact left REHAN prosthesis, motor dysfunction, progressive supranuclear palsy, and difficulty swallowing. PMHX: All Active Problems?(Updated 03/21/22 @ 18:58 by Winnie Hay MD) Discharge planning issues (Acute) DVT prophylaxis (Acute) Pain, acute due to trauma (Acute) Ambulatory dysfunction (Acute) Periprosthetic hip fracture (Acute) Right kidney stone (Acute) Nocturia (Acute) Frequent falls (Acute) Progressive supranuclear palsy (Chronic) Anxiety (Chronic) Diabetic neuropathy (Acute) Urinary incontinence (Acute) Constipation (Acute) Memory loss (Acute) Gait abnormality (Acute) H/O esophagogastroduodenoscopy (Chronic ~04/29/19) Fever (Acute) Confusion (Acute) Right hip pain (Acute) GERD (gastroesophageal reflux disease) (Chronic) COPD (chronic obstructive pulmonary disease) (Chronic) S/P total knee replacement (Acute) S/P Arcadio fundoplication (without gastrostomy tube) procedure (Acute) [place]2 [place] [facility] [place] Depression (Chronic) Obesity (Chronic) Hyperlipidemia (Acute) Insomnia (Acute) Diverticulosis (Acute) Sleep apnea (Acute) Osteoarthritis (Chronic) History of colonic polyps (Acute) History of kidney stones (Acute) History of cardiac cath (Chronic) Shoulder joint pain (Acute) Cerumen impaction (Acute) History of total hip arthroplasty (Acute) Incisional hernia (Acute) Inguinal hernia (Acute) Chronic low back pain (Acute) Unsteady gait (Acute) Difficulty swallowing (Acute) Behavioral and psychological symptoms of dementia (Acute) Diabetes mellitus (Chronic) Medical History?(Updated 03/21/22 @ 18:58 by Winnie Hay MD) Esophageal stricture GERD (gastroesophageal reflux disease) Hiatal hernia Surgical History? History of colonoscopy History of lumbar laminectomy for spinal cord decompression History of shoulder surgery Total replacement of hip Social History/Home Situation: Lives with in a private home with a ramp to enter. Modified independent with all mobility ADL's using 4-wheeled walker prior to admission. Equipment Owned/DME: Wheelchair, bedside commode, 4-wheeled walker Subjective: Agreeable to PT consult. Reports pain in the left hip aggravated with weight bearing. Agreeable to having short-term rehab placement to maximize functional mobility level prior to going home. , who is present throughout evaluation, is agreeable. Objective: General Observation: Supine in bed. IV through right UE. Sen catheter in place. Telemetry monitoring in place. Bradykinesic. Mental Status: Alert and oriented as to persona and place. Able to pay attention, focus, and respond appropriately although a little delayed with response time. Pain: Moderate pain in the left hip with weightbearing ROM: Right Upper Extremity: Shoulder Flexion WFL. Shoulder abduction WFL. Elbow flexion WFL. Wrist flexion WFL. Functional opening and closing of hand WFL. Left Upper Extremity: Shoulder Flexion WFL. Shoulder abduction WFL. Elbow flexion WFL. Wrist flexion WFL. Functional opening and closing of hand WFL. Right Lower Extremity: Hip flexion WFL. Hip abduction WFL. Knee flexion WFL. Ankle dorsiflexion WFL. Ankle plantarflexion WFL. Left Lower Extremity: Hip flexion WFL. Hip abduction NT. Knee flexion WFL. Ankle dorsiflexion WFL. Ankle plantarflexion WFL. Strength: Right Upper Extremity: Shoulder flexors 4/5. Shoulder abductors 5/5. Elbow flexors 5/5. Elbow extensors 5/5. Outer Diameter Grinder strong. Left Upper Extremity: Shoulder flexors 4/5. Shoulder abductors 5/5. Elbow flexors 5/5. Elbow extensors 5/5. Outer Diameter Grinder strong. Right Lower Extremity: Hip flexors 4-/5. Hip abductors 4-/5. Knee flexors 4-/5. Knee extensors 4-/5. Ankle dorsiflexors 4/5. Ankle plantarflexors 4/5. Left Lower Extremity: Hip flexors 4-/5. Hip abductors NT. Knee flexors 4-/5. Knee extensors 4-/5. Ankle dorsiflexors 4/5. Ankle plantarflexors 4/5. Bed Mobility/Transfers: Supine to sit minimal assist of 2 Sit to stand minimal assist of 2 and standby assist of third person for safety Stand to sit minimal assist Bed to reclining chair minimal assist of 2 and standby assist of third person for safety Gait: Instructed patient with level surface ambulation of 12 feet requiring minimal assist of 2 and standby assist of a third person for safety. Very much delayed reaction time. Decreased hip and knee flexion on the left. Decreased swing time on the right LE. Required moderate to maximal verbal and tactile cueing for limb advancement, posture, and activity sequence. Nurse Lal and STEVEN Dudley assisting for safety. Appeared very much fatigued after activity. Balance: Static Sitting: Good Dynamic Sitting: Fair Static Standing: Poor Dynamic Standing: Poor Special Tests: Mobility Limitations Standardized Measure [facility] AM-PAC 6 clicks Basic Mobility Inpatient Short Form: Raw Score: 11 CMS Score: 73% deficit Informed Consent/Education: Patient and was instructed in purpose of PT consult and plan of care. Agreeable to proceed with established PT POC to achieve personal goals. ASSESSMENT: Valdemar demonstrates significant functional mobility decline requiring the assistance of at least 2 people for all out-of-bed activities for safety. Delayed reaction time and easy fatigability from Parkinson's disease compound mobility compromise. Nursing staff may use STEDY lift for all transfers at this time for safety. Coordinate with nurse for premedication for pain for PT sessions. Patient presents with clinical signs and symptoms consistent with current/admitting diagnoses that have resulted to mobility limitations, gait instability, generalized weakness, and overall ADL decline as demonstrated by the following impairment level findings: 1. Decreased strength to left LE major muscle groups 2. Impaired sitting/standing balance 3. Impaired activity tolerance 4. Limitation of joint range of motion in left hip 5. Fatigue 6. Pain in L hip with weight bearing Impairments are contributing to the following functional limitations: 1. Decline in bed mobility skills 2. Decline in transfer skills 3. Difficulty with ambulation without assistive device and physical assistance 4. Increased completion time for mobility ADL performance 5. Increased risk for falls 6. Difficulty with managing steps alone safely Patient is assessed as a 31442 high complexity based on the following: History: 71 [id number] with past medical history as indicated above Examination: Demonstrable impairment in strength, balance, and mobility level with underlying impairments and functional limitations as exhibited above as well as deficit score of 73% utilizing the [facility] Mobility Inpatient Short Form Presentation: Evolving 17060 high complexity Decision Making: complexity Goals: Goals X1 week 1. Supine-Sit contact-guard assist 2. Sit-Supine contact-guard assist 3. Sit-Stand contact-guard assist 4. Stand-Sit minimal assist with FWW 5. Bed-Chair minimal assist with FWW 6. Chair-Bed minimal assist with FWW 7. Independent gait on level surface with use of FWW for at least 50feet without report of pain nor dyspnea 8. Fair static and dynamic standing balance/tolerance Plan of Care/Treatment Plan: 1-2x/day, 7 days/week x 1 week. Plan of care has been reviewed with the CHLORINE PLANT OPERATOR providing the service under Physical Therapy direction. Initiate Physical Therapy intervention for pain management as needed, strengthening, bed mobility, transfers, gait, stairs, balance training, and use of assistive device. DISCHARGE RECOMMENDATIONS: [] Home with no services [] [] Home with services [specify] [] Home with outpatient PT [] [X] SNF for continued rehabilitation. Patient will benefit from short-term rehabilitation at a fpc facility for continued skilled physical therapy services in order to progress mobility level, strength, and balance in preparation for a safe discharge to home. [] [facility] [] [] SNF versus LTC based on ability to participate and progress [] TREATMENT CODE/TIME: 22563 x 30 minutes, 28107 x 18 minutes beginning at 12:52 PM. Thank you for the opportunity to participate in the care of this patient. Trinity Poon PT, DPT, CLT [facility] [place], [place]
--- NOTE | 2022-03-22 14:19 | CHAPLAIN ---
Valdemar was up in the chair, and his was visiting, when I stopped in. They were finishing a conversation with the healthcare economics manager. I explained my role and offered support. They were not interested in further conversation at this point. I will check in again another day.
--- NOTE | 2022-03-22 14:57 | OCONE_ITS ---
Date of service: 03/22/22 Time of Service: 14:57 History of Present Illness History of Present Illness Chief Complaint: Left hip injury Narrative: Valdemar is a 71-year-old male with a history of Parkinson's disease who was admitted to the hospital after he sustained an injury to his left hip. Approximately 3 days ago, he tried to walk backwards with his walker and ended up falling landing directly on his left hip. He went to the emergency room where x-rays and CT scan showed a fracture of the greater trochanter of the left hip which was nondisplaced. He has a history of bilateral total hip replacements. He has pain specifically over the lateral aspect of his hip. He denies any groin pain or buttock pain. He denies knee or foot pain. Assessment and Plan Assessment and plan (1) Closed fracture of greater trochanter of left femur: Status: Acute Assessment and plan: Valdemar has suffered a nondisplaced isolated greater trochanter fracture of the left hip in the presence of a total hip replacement. This is complicated due to his past medical history for Parkinson's disease as well. This fracture will likely heal without complication, however ambulation will be difficult due to pain and difficulty balancing at baseline. He should use a walker for ambulati on, but weight-bear as tolerated. I interviewed and examined the patient with Emeterio Ac PA-C. I agree with the documentation as above. The assessment and plan were formulated with my direct involvement. Valdemar is a 71-year-old with Parkinson's and history of a left hip replacement. He has frequent falls and unfortunately fell recently onto his left side. He had immediate pain and was unable to ambulate. He was brought to the emergency department diagnosed with a fracture about the left hip. He did have a previous hip replacement on the left side which had been functioning well. I reviewed his x-ray which seem to show a [place] a T fracture involving the greater trochanter. Did not have extension of the stem. He did have an CT and x-ray from about a year ago of the left hip which looks very similar nature except for this fracture involving the greater trochanter. There does not appear to be any extension down the femur and no apparent separation of the bone from the stem. Given these findings this is a stable injury. I recom mended weightbearing as tolerated with a four-point gait i.e. with a walker. He should avoid active abduction and any adduction across the midline. All. This will take some time to mobilize given his Parkinson's and his underlying weakness and frequent falls. However I do not believe that his stent was loose and therefore there is no surgery indicated at this time. He likely will need a intermediate facility discharge to work on ambulation getting stronger. It is imperative that we work on pain control and then slowly start to ambulate. I would like to check an x-ray once he has mobilized. Martin Lobo MD FAAOS FAAHKS PFSH All Active Problems (Updated 03/22/22 @ 15:00 by IVAN Falcon) Closed fracture of greater trochanter of left femur (Acute 03/19/22) Discharge planning issues (Acute) DVT prophylaxis (Acute) Pain, acute due to trauma (Acute) Ambulatory dysfunction (Acute) Periprosthetic hip fracture (Acute) Right kidney stone (Acute) Nocturia (Acute) Frequent falls (Acute) Progressive supranuclear palsy (Chronic) Anxiety (Chronic) Diabetic neuropathy (Acute) Urinary incontinence (Acute) Constipation (Acute) Memory loss (Acute) Gait abnormality (Acute) H/O esophagogastroduodenoscopy (Chronic ~04/29/19) Fever (Acute) Confusion (Acute) Right hip pain (Acute) GERD (gastroesophageal reflux disease) (Chronic) COPD (chronic obstructive pulmonary disease) (Chronic) S/P total knee replacement (Acute) S/P Arcadio fundoplication (without gastrostomy tube) procedure (Acute) x2 at [facility] [place] Depression (Chronic) Obesity (Chronic) Hyperlipidemia (Acute) Insomnia (Acute) Diverticulosis (Acute) Sleep apnea (Acute) Osteoarthritis (Chronic) History of colonic polyps (Acute) History of kidney stones (Acute) History of cardiac cath (Chronic) Shoulder joint pain (Acute) Cerumen impaction (Acute) History of total hip arthroplasty (Acute) Incisional hernia (Acute) Inguinal hernia (Acute) Chronic low back pain (Acute) Unsteady gait (Acute) Difficulty swallowing (Acute) Behavioral and psychological symptoms of dementia (Acute) Diabetes mellitus (Chronic) Medical History (Updated 03/22/22 @ 15:00 by IVAN Falcon) Esophageal stricture GERD (gastroesophageal reflux disease) Hiatal hernia Surgical History History of colonoscopy History of lumbar laminectomy for spinal cord decompression History of shoulder surgery Total replacement of hip Family History Mother Dementia COPD (chronic obstructive pulmonary disease) Other Cancer Diabetes Heart disease Social History Smoking/Tobacco Use Status: Never Smoking risk assessment performed?: Yes Alcohol Intake: current Alcohol Intake frequency: holidays/special occasions only Drug use: Never Substance use type: does not use Details: alcohol: one year Household members: spouse Housing: house Number of Children: 2 number of grandchildren: 3 Pets and animals: Yes Pets and animals: dog(s) What is your relationship status?: Panel score (0-1 are the most socially isolated patients): 1 What type of physical activity do you participate in: none Seatbelt use: always Do you feel safe at home: Yes Do you feel safe in your relationship?: Yes Exam Extrem Other: Brief exam of the left hip today shows that he has pain with passive internal and external rotation. Pain is isolated to the lateral aspect of his hip, and there is no groin pain. He has minimal pain with active assisted flexion of the hip in a sitting position. There is no deformity/shortening of the left hip and it rests in a neutral position and not in internal rotation. Results Last Vital Signs Temp 98.2 F 03/22/22 10:53 Pulse 79 03/22/22 10:53 Resp 18 03/22/22 10:53 BP 127/80 03/22/22 10:53 Pulse Ox 93 03/22/22 10:53 Labs Result diagrams: 03/21/22 14:00 03/21/22 14:00 Labs: Laboratory Results - last 24 hr 03/21/22 03/21/22 15:35 20:05 Urine Color Yellow Urine Clarity Clear Urine pH 5.5 Ur Specific [place] >= 1.030 H Urine Protein Trace H Urine Ketones Trace H Urine Blood Negative Urine Nitrite Negative Urine Bilirubin Negative Urine Urobilinogen 2.0 H Ur Leukocyte Esterase Negative Urine RBC 5-10 H Urine WBC 0-2 Ur Epithelial Cells Few Urine Crystals Negative Urine Bacteria Negative Urine Mucus Negative Urine Other Few [place] Ur Culture Indicated? C&S Done As Ordered Urine Glucose 500 H COVID-19 Source Nasal/Nares SARS-CoV-2 (PCR) Negative
[2022-03-22 14:58] VITALS: BP 128/79; PULSE 91; RESP 16; TEMP 36.7; O2SAT 93
--- NOTE | 2022-03-22 15:50 | PGE_ITS ---
Date of Service Date of service: 03/22/22 Time of Service: 15:51 Assessment and Plan Assessment and plan (1) Periprosthetic hip fracture: Status: Acute Assessment and plan: Orthopedics consulted and recommendations for nonoperative management. continue with PT Pain control, bowel regimen. Will need rehab. (2) Ambulatory dysfunction: Status: Acute Assessment and plan: Due to above, as above (3) Diabetes mellitus: Status: Chronic Assessment and plan: Continue outpatient oral therapy with SSI. carb controlled diet blood sugars have been under 200 (4) Progressive supranuclear palsy: Status: Chronic Assessment and plan: Cause of his Parkinsonism. Continue outpatient sinemet. (5) Difficulty swallowing: Status: Acute Assessment and plan: Due to above. speech therapy evaluation with following recommendations: DIET CONSISTENCIES: IDDSI Level 6: Soft/Bite size solids IDDSI Level 0: Thin liquids Medications one at a time in puree (IDDSI level 4). Cut or crush large pills as able to prevent stasis. ORAL CARE Strategies: Small sips Alternate liquids/solids Plan NURSING HOME ASSISTANT to follow while on unit at least 1x to ensure diet tolerance. Patient to follow up as outpatient for [facility], [facility] or [facility]. (6) DVT prophylaxis: Status: Acute Assessment and plan: SCDs (will investigate why the patient is on PPI BID - suspect h/o GI bleed) (7) Discharge planning issues: Status: Acute Assessment and plan: DNR but not DNI Consult palliative care Consult PT. Will need SNF placement discussed with DR Hay Subjective Subjective Patient reports: feels better, still having pain, tolerating liquids well, tolerating a regular diet, bowel movement and afebrile; denies shortness of breath Interval history since last seen: owens to gravity draining concentrated urine, low volumes but doesn't drink much fluids at baseline Exam Const General: cooperative, comfortable, no acute distress and frail appearing (older than stated age) Nutritional Appearance: average body habitus Orientation: alert, awake and oriented x3 HENMT Head: normal to inspection, normocephalic and atraumatic Mouth: oral mucosae normal Neck Neck: normal visual inspection Resp Effort & Inspection: normal respiratory effort Auscultation: clear to auscultation bilaterally (respiration even and unlabored) Cardio Rate: regular rate Rhythm: regular rhythm GI Inspection: normal to inspection Auscultation: normal bowel sounds Skin General skin exam: no rashes or lesions noted Neuro General: patient alert, patient awake and patient oriented x3 Extrem General: normal to inspection and full ROM Objective Last Vital Signs Temp 36.7 C 03/22/22 14:58 Pulse 91 H 03/22/22 14:58 Resp 16 03/22/22 14:58 BP 128/79 03/22/22 14:58 Pulse Ox 93 03/22/22 14:58 Laboratory Results - last 24 hr 03/21/22 03/21/22 15:35 20:05 Urine Color Yellow Urine Clarity Clear Urine pH 5.5 Ur Specific [place] >= 1.030 H Urine Protein Trace H Urine Ketones Trace H Urine Blood Negative Urine Nitrite Negative Urine Bilirubin Negative Urine Urobilinogen 2.0 H Ur Leukocyte Esterase Negative Urine RBC 5-10 H Urine WBC 0-2 Ur Epithelial Cells Few Urine Crystals Negative Urine Bacteria Negative Urine Mucus Negative Urine Other Few [place] Ur Culture Indicated? C&S Done As Ordered Urine Glucose 500 H SARS-CoV-2 (PCR) Negative
--- NOTE | 2022-03-22 15:54 | PDOC.CMIN ---
- If Service Date Differs Date of service: 03/22/22 Time of Service: 15:54 Care Management Initial Assess REASON FOR HOSPITALIZATION:: Periprosthetic Left Hip Fracture, Traumatic
[2022-03-22] MEDS: oxyCODONE 5 MG TAB PO (17:11)
[2022-03-22] MEDS: Polyethylene Glycol 3350 17 GM PACKET PO (20:12)
[2022-03-22 23:57] VITALS: BP 108/66; PULSE 102; RESP 18; TEMP 37.1; O2SAT 92
[2022-03-23 07:30] VITALS: BP 128/78; PULSE 89; RESP 17; TEMP 37.3; O2SAT 94
[2022-03-23] MEDS: Polyethylene Glycol 3350 17 GM PACKET PO ×2 (07:48→19:12)
[2022-03-23] MEDS: Acetaminophen 500 MG TAB 1000 MG PO (07:49)
[2022-03-23] MEDS: Fluticasone NASAL SPRAY 16 GM BTL NS ×2 (07:49→19:17)
[2022-03-23] MEDS: Cholecalciferol (Vitamin D3) 1,000 UNIT TAB 1000 UNITS PO (07:50)
[2022-03-23] MEDS: Lisinopril 10 MG TAB PO (07:50)
[2022-03-23] MEDS: metFORMIN 500 MG TAB PO ×2 (07:50→16:59)
[2022-03-23] MEDS: glipiZIDE 10 MG TAB PO (07:50)
[2022-03-23] MEDS: Sucralfate 1 GM TAB PO ×4 (07:50→21:13)
[2022-03-23] MEDS: Docusate Sodium 100 MG CAP 200 MG PO (07:50)
[2022-03-23] MEDS: Rivastigmine 1.5 MG CAP 3 MG PO ×2 (07:50→19:14)
[2022-03-23] MEDS: Famotidine 20 MG TAB PO (07:51)
[2022-03-23] MEDS: oxyCODONE 5 MG TAB PO ×2 (07:51→12:21)
[2022-03-23] MEDS: Ascorbic Acid 500 MG TAB PO (07:51)
[2022-03-23] MEDS: FLUoxetine 20 MG CAP 40 MG PO (07:51)
[2022-03-23] MEDS: Gabapentin 300 MG CAP 900 MG PO ×3 (07:51→19:20)
[2022-03-23] MEDS: Carbidopa 25/Levodopa 100 TAB PO ×3 (07:51→16:58)
[2022-03-23] MEDS: Oxybutynin 5 MG TAB PO ×2 (07:51→19:15)
[2022-03-23] MEDS: Pantoprazole 40 MG TABCR PO ×2 (07:51→19:15)
[2022-03-23] MEDS: Pravastatin 40 MG TAB PO (07:51)
[2022-03-23] MEDS: Insulin Aspart 300 UNITS/3 ML PEN SC ×4 (07:52→21:13)
[2022-03-23] MEDS: Cyanocobalamin 500 MCG TAB 1000 MCG PO (07:52)
--- NOTE | 2022-03-23 09:08 | PDOC.CMPRO ---
- If Service Date Differs Date of service: 03/23/22 Time of Service: 09:08 Care Management Progress Note S/O: Valdemar was sitting up in his chair visiting with his when CM met with him. Valdemar has excepted a bed at [facility] for STR and the facility is working on the prior Auth. Patients would like CM to give her a call in the morning to discuss Valdemar's discharge after prior auth is obtained. CM will continue to support discharge planning needs. A: 71 year old male admitted to [facility] on 03/21/22 for Periprosthetic L hip fracture/traumatic P: Valdemar will need SNF for STR prior to returning home. SNF referral's were sent to [facility], [facility]. Transportation will be dependent on disposition and mobility level at time of discharge. CM will continue to support discharge planning needs.
--- NOTE | 2022-03-23 11:11 | W.PM.PROGNOT ---
Date of Service Date of service: 03/23/22 Time of Service: Assessment and Plan Assessment and plan (1) Periprosthetic hip fracture: Start date: 03/23/22 Start time: Status: Acute Assessment and plan: Orthopedics consulted and recommendations for nonoperative management. continue with PT Pain control, bowel regimen. CM working on placement (2) Ambulatory dysfunction: Start date: 03/23/22 Start time: Status: Acute Assessment and plan: Due to above, as above (3) Diabetes mellitus: Start date: 03/23/22 Start time: Status: Chronic Assessment and plan: Continue outpatient oral therapy with SSI. carb controlled diet FS have been over 200 changed SSI to moderate scale, continue to monitor (4) Progressive supranuclear palsy: Start date: 03/23/22 Start time: Status: Chronic Assessment and plan: Cause of his Parkinsonism. Continue outpatient sinemet. (5) Difficulty swallowing: Start date: 03/23/22 Start time: Status: Acute Assessment and plan: Due to above. speech therapy evaluation with following recommendations: DIET CONSISTENCIES: IDDSI Level 6: Soft/Bite size solids IDDSI Level 0: Thin liquids Medications one at a time in puree (IDDSI level 4). Cut or crush large pills as able to prevent stasis. ORAL CARE Strategies: Small sips Alternate liquids/solids Plan RAILWAY PATROL OFFICER to follow while on unit at least 1x to ensure diet tolerance. Patient to follow up as outpatient for [facility], [facility] or [facility]. (6) DVT prophylaxis: Start date: 03/23/22 Start time: Status: Acute Assessment and plan: SCDs (will investigate why the patient is on PPI BID - suspect h/o GI bleed) (7) Discharge planning issues: Start date: 03/23/22 Start time: : Status: Acute Assessment and plan: DNR but not DNI Consult palliative care Consult PT. Will need SNF placement discussed with DR Hay Subjective Subjective Patient reports: still having pain Interval history since last seen: Patient having pain after working with PT. He did not want his tylenol scheduled. RN aware about pain. Ice applied. He is agree able to voltaren gel. CMST +, PPPX2. Awaiting placement at this time, CM working on that Exam Const General: cooperative, comfortable, no acute distress and frail appearing (older than stated age) Nutritional Appearance: average body habitus Orientation: alert, awake and oriented x3 HENMT Head: normal to inspection, normocephalic and atraumatic Mouth: oral mucosae normal Neck Neck: normal visual inspection Resp Effort & Inspection: normal respiratory effort Auscultation: clear to auscultation bilaterally (respiration even and unlabored) Cardio Rate: regular rate Rhythm: regular rhythm GI Inspection: normal to inspection Auscultation: normal bowel sounds Skin General skin exam: no rashes or lesions noted Neuro General: patient alert, patient awake and patient oriented x3 Extrem General: normal to inspection and full ROM Objective Last Vital Signs Temp 37.3 C 03/23/22 07:30 Pulse 89 03/23/22 07:30 Resp 17 03/23/22 07:30 BP 128/78 03/23/22 07:30 Pulse Ox 94 03/23/22 07:30
--- NOTE | 2022-03-23 11:22 | PTTR_ITS ---
Date of service: 03/23/22 Time of Service: 10:42 PT Notes Visit Reasons: periprosthetic L hip fracture/traumatic Inpatient Physical Therapy Treatment Note [facility] Date: 03/23/2022 PRECAUTIONS: Activity as tolerated, fall, WBAT L SUBJECTIVE: Valdemar is agreeable to participating in PT. He reports that he has tried heat for the pain in his hip, but did not find it helpful. He is willing to try ice today. OBJECTIVE: PAIN: Patient c/o pain in L hip with all activity, increasing with weight bearing. BED MOBILITY/TRANSFERS Sit-stand: Max A x2 in a.m.; Mod A x2 in p.m. with STEDY Stand-sit: Mod A x2 in a.m.; Min A in p.m. with STEDY GAIT: Assistive Device: FWW Weight bearing: WBAT L Assist: Mod A + Min A Distance: 3 small steps F/B with L LE (patient unable to step with R) Deviation: Hesitant to bear weight through L LE, lateral trunk flexion to R THEREX: Patient was instructed in a LE strengthening program, completed in a seated position in a.m., to include: LAQ, seated marching, hip abduction and ankle pumps. Patient c/o L hip pain with hip abduction exercise. Patient was instructed in a standing LE strengthening program, completed in STEDY lift in p. m., to include: functional [id number], mini knee bends, and modified hip flexion exercise. TOILETING: Patient toileted with assist ASSESSMENT: Patient tolerated session with complaint of L hip pain with all activity. He was able to tolerate standing, although requires Max A x2 for [id number] transfer at this time. He is unable to advance his R LE due to pain and weakness. PLAN: Continue with LE strengthening and gait and transfer training for improved mobility and activity tolerance. Recommend discharge to SNF-level rehab when medically cleared. TREATMENT CODE/TIME: Session 1: 33 minutes; 10903, [id number] (10:42) Session 2: 27 minutes; [id number], [id number] (14:30)
[2022-03-23 15:30] VITALS: BP 115/74; PULSE 98; RESP 18; TEMP 36.7; O2SAT 92
[2022-03-23] MEDS: Diclofenac 1% Gel 100 GM TUBE TP ×2 (16:59→19:18)
[2022-03-23] MEDS: Normal Saline Flush 10 ML SYR IVP (19:16)
[2022-03-23 19:52] VITALS: BP 123/80; PULSE 94; RESP 18; TEMP 37.1; O2SAT 92
--- NOTE | 2022-03-23 21:17 | PGE_ITS ---
Date of Service Date of service: 03/23/22 Time of Service: 13:00 Assessment and Plan Assessment and plan (1) Closed fracture of greater trochanter of left femur: Status: Acute Assessment and plan: Valdemar is a 71-year-old who unfortunately suffers from Park symptoms and has multiple falls. He also has significant amatory dysfunction and has been attending physical therapy to assist with that with the right side being the worst affected side. Unfortunately he fell on the left side and suffered a periprosthetic fracture around his left replacement involving the greater tr ochanter. I do believe this is a [place] A type fracture involving only greater trochanter. Evaluating the CT scan once again when compared to previous CT scan shows no sign of displacement of the stem of nor of separation of the bony attachment to the stem itself. This is inherently a stable fracture but will require some time. Unfortunately his Parkinson's with his underlying mechanical dysfunction of his lower extremities with gait is going to provide a challenge. Per previous physical therapy notes he has already had difficulty with advancing his right leg and moving it independently without some assistance. Now that his left leg is fractured this may become more difficult and will be explained. I do not find any concerning features. We will obtain an x-ray of the hip after he mobilizes and may be even after a few days immobilization to ensure there is no sign of instability which I do find unlikely. Unfortunately, this will just take time which I explained to Valdemar. He will likely [facility] to work on his ambulatory capacity. I reviewed all this with Valdemar. All of his questions were answered Subjective Subjective Interval history since last seen: Valdemar reports ability to get to a chair but still continued pain within the left hip. It is worse with any mobilization and trying to move the leg. No changes to the symptomsof the pain. Pain medications are helping. Exam Narrative Exam Narrative: Sitting in the chair. NAD. Pleasant and cooperative. LLE is without signfiicant overlying abnormality. Appearance of the left leg is appropriate. Pain to palpation over the greater trochanter. Mild pain with ER/IR of the left hip. Weak quadriceps extension with some mild hip pain. +ADF/APF/EHL/FHL although slow and somewhat weak.
[2022-03-24 03:06] VITALS: BP 129/91; PULSE 88; RESP 16; TEMP 37.6; O2SAT 94
[2022-03-24 05:17] LABS: Vitamin D 25 Total 39.8 ng/mL (30-100)
[2022-03-24 07:28] VITALS: BP 123/77; PULSE 94; RESP 18; TEMP 37.4; O2SAT 95
--- NOTE | 2022-03-24 07:44 | OT.INIE ---
Occupational Therapy Notes Inpatient Occupational Therapy Evaluation Date: 03/24/22 Referring Doctor:Winnie Hay MD OT Orders: Non Urgent Precautions: Fall, Standard, DNR PATIENT PROFILE/ADMITTING DIAGNOSIS: Pt is a 71 yr old male with past medical history of Parkinson's Disease, progressive supranuclear palsy, and (B) total hip arthroplasties who presented to the ED on 03/21/2022 with (L) hip pain sustained from a fall.? Patient is diagnosed with a non-displaced intertrochanteric fx on the left hip. Past Medical History: All Active Problems?(Updated 03/21/22 @ 18:58 by Winnie Hay MD) Discharge planning issues (Acute) DVT prophylaxis (Acute) Pain, acute due to trauma (Acute) Ambulatory dysfunction (Acute) Periprosthetic hip fracture (Acute) Right kidney stone (Acute) Nocturia (Acute) Frequent falls (Acute) Progressive supranuclear palsy (Chronic) Anxiety (Chronic) Diabetic neuropathy (Acute) Urinary incontinence (Acute) Constipation (Acute) Memory loss (Acute) Gait abnormality (Acute) H/O esophagogastroduodenoscopy (Chronic ~04/29/19) Fever (Acute) Confusion (Acute) Right hip pain (Acute) GERD (gastroesophageal reflux disease) (Chronic) COPD (chronic obstructive pulmonary disease) (Chronic) S/P total knee replacement (Acute) S/P Arcadio fundoplication (without gastrostomy tube) procedure (Acute) [facility] [place] Obesity (Chronic) Hyperlipidemia (Acute) Insomnia (Acute) Diverticulosis (Acute) Sleep apnea (Acute) Osteoarthritis (Chronic) History of colonic polyps (Acute) History of kidney stones (Acute) History of cardiac cath (Chronic) Shoulder joint pain (Acute) Cerumen impaction (Acute) History of total hip arthroplasty (Acute) Incisional hernia (Acute) Inguinal hernia (Acute) Chronic low back pain (Acute) Unsteady gait (Acute) Difficulty swallowing (Acute) Behavioral and psychological symptoms of dementia (Acute) Diabetes mellitus (Chronic) Medical History?(Updated 03/21/22 @ 18:58 by Winnie Hay MD) Esophageal stricture GERD (gastroesophageal reflux disease) Hiatal hernia Surgical History? History of colonoscopy History of lumbar laminectomy for spinal cord decompression History of shoulder surgery Total replacement of hip Social History/Home Situation: Pt states that he lives in a private home with his . He notes that he requires (A) with his ADLS and has HH services in his home during the day. He is unable to perform his LE dressing (I) at baseline, he utilizes a bedside commode and he states that he uses a 4WW at all times. He does have a ramp to enter his home and he does not drive. Equipment owned/DME: 4WW, grab bars, commode, shower seat SUBJECTIVE: Pt was sitting in chair when OT arrived. He is agreeable to OT session and notes that his baseline level of function he requires (A). OBJECTIVE: General Observation: Pleasant, IV in (R) UE Mental Status: A&Ox3 Pain: c/o pain in hip ROM: RUE AROM WFL L UE AROM WFL STRENGTH: RUE 4-/5 throughout LUE 4+/5 throughout *Pt is (R) hand dominant. FUNCTIONAL MOBILITY/ADLS: EATING Pt states that a big concern for him is his tremor while he eats his meals. OT educated and trained pt in contact and mental tremor control exercises which he was able to perform with fair-good technique. Pt is going to utilize these during his eating demands today and OT will work with pt on progressive functional (I) at next session. BALANCE: Static sitting Norml Dynamic Sitting Normal SPECIAL TESTS: Daily Activity Limitations Standardized Measure [facility] AM -PAC ?6 clicks? Daily Activity Inpatient Short Form: Raw score: 14 Standardized score: 33.39 CMS score: 59.67% INFORMED CONSENT/EDUCATION: Pt instructed in purpose of OT Consult and plan of care. ASSESSMENT: Patient is a 71-year-old male referred to occupational therapy services with diagnosis of closed fx of greater trochanter of (L) femur, pain d/t trauma, periprosthetic hip fx, (R) kidney stone, nocturina, (R) kidney stone, progressive supranuclear palsy, anxiety, diabetic neuropathy, urinary incontinence, constipation, memory loss. Patient presents with clinical signs and symptoms consistent with dx, as demonstrated by the following impairment level findings/functional limitations: Pain in hip, weightbearing precautions set per MD, parkinsons disease, decreased functional mobility required for ADL performance, tremor in (B) UE decreasing his functional control during his eating demands. AMPA score 14 Patient is assessed as a Moderate 23840 complexity based on the following: History: see above Examination: see functional limitations as noted above Presentation: evolving Decision Making: AMPAC score 14 GOALS Goals x1 week 1. Grooming- (I) 2. Dressing- mod (I) LE and (I) UE 3. Bathing- (I) UE and mod (I) LE 4. Toileting- on toilet (I) 5. Eating- (I) without good control of his functional tremor. PLAN OF CARE/TREATMENT PLAN: 1x/day, 5 days/ week x 1week Initiate Occupational Therapy Services for bathing, dressing, grooming, toileting, eating, transfer training. DISCHARGE RECOMMENDATIONS SNF for continued rehabilitation and progressed (I) in his ADL/IADL routines. TREATMENT TIME/MINUTES/CODES 64555, 20 minutes (07:25) Risa Angela OTR/L [facility]
[2022-03-24] MEDS: glipiZIDE 10 MG TAB PO (07:54)
[2022-03-24] MEDS: Normal Saline Flush 10 ML SYR IVP ×2 (07:54→08:58)
[2022-03-24] MEDS: Polyethylene Glycol 3350 17 GM PACKET PO ×2 (07:54→20:29)
[2022-03-24] MEDS: Carbidopa 25/Levodopa 100 TAB PO ×3 (07:55→16:33)
[2022-03-24] MEDS: Gabapentin 300 MG CAP 900 MG PO ×3 (07:55→20:28)
[2022-03-24] MEDS: Famotidine 20 MG TAB PO (07:55)
[2022-03-24] MEDS: Rivastigmine 1.5 MG CAP 3 MG PO ×2 (07:55→20:28)
[2022-03-24] MEDS: Pravastatin 40 MG TAB PO (07:55)
[2022-03-24] MEDS: Cholecalciferol (Vitamin D3) 1,000 UNIT TAB 1000 UNITS PO (07:56)
[2022-03-24] MEDS: metFORMIN 500 MG TAB PO ×2 (07:56→16:33)
[2022-03-24] MEDS: FLUoxetine 20 MG CAP 40 MG PO (07:56)
[2022-03-24] MEDS: Lisinopril 10 MG TAB PO (07:56)
[2022-03-24] MEDS: Cyanocobalamin 500 MCG TAB 1000 MCG PO (07:56)
[2022-03-24] MEDS: Docusate Sodium 100 MG CAP 200 MG PO (07:56)
[2022-03-24] MEDS: Oxybutynin 5 MG TAB PO ×2 (07:56→20:28)
[2022-03-24] MEDS: Pantoprazole 40 MG TABCR PO ×2 (07:56→20:28)
[2022-03-24] MEDS: Ascorbic Acid 500 MG TAB PO (07:56)
[2022-03-24] MEDS: Sucralfate 1 GM TAB PO ×4 (07:56→22:56)
[2022-03-24] MEDS: Diclofenac 1% Gel 100 GM TUBE TP ×4 (07:57→20:57)
[2022-03-24] MEDS: Insulin Aspart 300 UNITS/3 ML PEN SC ×4 (07:57→20:58)
[2022-03-24] MEDS: Fluticasone NASAL SPRAY 16 GM BTL NS ×2 (07:59→20:59)
--- NOTE | 2022-03-24 09:42 | CMPROGNOTE_ITS ---
- If Service Date Differs Date of service: 03/24/22 Time of Service: 09:42 Care Management Progress Note S/O: Authorization to [facility] is still pending. CM communicated delay in transfer to pts [place]. A: 71 year old male admitted to [facility] on 03/21/22 for Periprosthetic L hip f racture/traumatic P: Valdemar will need SNF for STR prior to returning home. SNF referral's were sent to [facility], [facility]. Transportation will be dependent on disposition and mobility level at time of discharge. CM will continue to support discharge planning needs.
--- NOTE | 2022-03-24 09:42 | PDOC.CMPRO ---
- If Service Date Differs Date of service: 03/24/22 Time of Service: 09:42 Care Management Progress Note S/O: Authorization to [facility] is still pending. CM communicated delay in transfer to pts [place]. A: 71 year old male admitted to [facility] on 03/21/22 for Periprosthetic L hip fracture/traumatic P: Valdemar will need SNF for STR prior to returning home. SNF referral's were sent to [facility], [facility]. Transportation will be dependent on disposition and mobility level at time of discharge. CM will continue to support discharge planning needs.
--- NOTE | 2022-03-24 11:11 | PT.INTREAT ---
Date of service: 03/24/22 Time of Service: 10:03 PT Notes Visit Reasons: periprosthetic L hip fracture/traumatic Inpatient Physical Therapy Treatment Note [facility] Date: 03/24/2022 PRECAUTIONS: Activity as tolerated, fall, WBAT L SUBJECTIVE: Valdemar is agreeable to participating in PT. He states that he has not been feeling well this morning, that he experienced some nausea and vomiting, which nursing is aware of. He also reports feeling discouraged with his lack of progress with functional mobility. OBJECTIVE: PAIN: Patient c/o pain in L hip with all activity, increasing with weight bearing. BED MOBILITY/TRANSFERS Sit-stand: Max A x2 Mod A x2 with STEDY Stand-sit: Mod A x2 Min A with STEDY GAIT: Assistive Device: FWW Weight bearing: WBAT L Assist: Mod A x2 Distance: ~8-10 small steps Deviation: Hesitant to bear weight through L LE, lateral trunk flexion to R, significant encouragement, assist with R foot advancement, assist with FWW management THEREX: Patient was instructed in a standing LE strengthening program, completed in STEDY lift, to include: functional [id number], mini knee bends, and modified hip flexion exercise, all of which he was able to tolerate increased reps. TOILETING: Patient toileted with assist ASSESSMENT: Patient tolerated session with complaint of L hip pain with all activity. He was able to tolerate standing, although requires Max A x2 for [id number] transfer at this time. He is unable to advance his R LE without assist due to pain and weakness. PLAN: Patient to discharge to SNF-level rehab later today, per provider. TREATMENT CODE/TIME: 30 minutes; 94751, 51140 (10:03)
[2022-03-24] MEDS: Ondansetron O.D.T. 4 MG TABEF PO (11:35)
[2022-03-24 11:46] LABS: Source Nasal/Nares
--- NOTE | 2022-03-24 11:46 | W.PM.DS.N ---
Date of service: 03/24/22 Time of Service: 10:47 DS: Diagnosis Discharge Diagnosis (1) Periprosthetic hip fracture: Status: Acute (2) Ambulatory dysfunction: Status: Acute (3) Diabetes mellitus: Status: Chronic (4) Progressive supranuclear palsy: Status: Chronic (5) Difficulty swallowing: Status: Acute (6) DVT prophylaxis: Status: Acute (7) Discharge planning issues: Status: Acute Discharge Plan Disposition Patient Disposition: SNF (LEVEL 1) [facility] Condition: Fair Discharge Details Reason For Visit: periprosthetic L hip fracture/traumatic Admit Date/Time: 03/21/22 15:28 Admit Provider: Winnie Hay Attending Provider: Winnie Hay Primary Care Provider: Awilda Rollins Hospital Course Hospital Course: Valdemar Smith is a 71-year-old man with a history of Parkinson's disease, GERD, COPD, diabetes, past hx of bilateral hip replacement. He presented to emergency department 03/22/22 with the complaint of left hip pain.? Patient reports that on 03/19/2022 he was using his walker as usual, tried to walk backward, lost his balance. Xrays and CT was obtained and orthopedics consulted. Dr. Lobo, who stated stable non-op fracture, recommended inpatient admission to medicine for PT, further eval. Fracture remains stable. He is a good candidate for [facility] and he is willing to go. We have secured a bed. He will be transferred this afternoon by EMS. Home Meds and New Rx's Prescriptions: No Action cholecalciferol (vitamin D3) 1,000 unit capsule 1,000 unit PO DAILY ascorbate calcium (vitamin C) 500 mg tablet 500 mg PO DAILY sucralfate 1 gram tablet 1 g PO QACHS fluticasone propionate [Flonase Allergy Relief] 50 mcg/actuation spray,suspension 1 spray intranasal BID Rx Instructions: administer into each nostril docusate sodium 100 mg tablet 200 mg PO DAILY Qty: 180 0RF carbidopa-levodopa 25-100 mg tablet 1 tab PO TID Qty: 270 3RF Rx Instructions: WITH MEALS (0800,1200,1700) carbidopa-levodopa 25-250 mg tablet 1 tab PO TID Qty: 360 3RF Rx Instructions: WITH MEALS (0800,1200,1700) amantadine HCl 100 mg tablet 100 mg PO BID Qty: 180 3RF Rx Instructions: Take am and lunchtime gabapentin 300 mg capsule 900 mg PO TID fluoxetine 40 mg capsule 40 mg PO DAILY metformin 500 mg tablet 500 mg PO BID famotidine 20 mg tablet 20 mg PO DAILY cyanocobalamin (vitamin B-12) 1,000 mcg tablet 1,000 mcg PO DAILY pravastatin 40 mg tablet 40 mg PO DAILY oxybutynin chloride 5 mg tablet 5 mg PO BID rivastigmine tartrate 3 mg capsule See Rx Instructions .ROUTE .COMPLEX Qty: 180 3RF Dose Instruction: Take 1 capsule by mouth twice daily Rx Instructions: Take 1 capsule by mouth twice daily glipizide 10 MG tablet 10 mg PO DAILY lisinopril 10 MG tablet 10 mg PO DAILY pantoprazole 40 mg tablet,delayed release (DR/EC) 40 mg PO BID Label Comments: TAKE ONE TABLET BY MOUTH TWICE A DAY Discharge Instructions Instructions: Constipation (DC), Fall Prevention (DC), Hip Fracture (GEN) Referrals: Martin Lobo MD [ [facility] STAFF PHYSICIAN] - Awilda Rollins [Primary Care Provider] - Activity:: Activity as Tolerated Equipment/Supplies:: No Equipment Needed Diet:: Low Sodium Discharge Orders Discharge Orders: Discharge Order (Routine); Ordered 03/24/22 Ordered By: Tanya Moise Exam Narrative Exam Narrative: Const General: cooperative, comfortable, no acute distress and frail appearing (older than stated age) Nutritional Appearance: average body habitus Orientation: alert, awake and oriented x3 HENMT Head: normal to inspection, normocephalic and atraumatic Mouth: oral mucosae normal Neck Neck: normal visual inspection Resp Effort & Inspection: normal respiratory effort Auscultation: clear to auscultation bilaterally (respiration even and unlabored) Cardio Rate: regular rate Rhythm: regular rhythm GI Inspection: normal to inspection Auscultation: normal bowel sounds Skin General skin exam: no rashes or lesions noted Neuro General: patient alert, patient awake and patient oriented x3 Extrem General: normal to inspection and full ROM Const General: cooperative DS: Data Vitals/I&O Vitals and I&O: Vital Signs Temperature 37.4 C 03/24/22 07:28 Temperature Source Tympanic 03/24/22 07:28 Pulse 94 H 03/24/22 07:28 Pulse Rhythm Regular 05/12/22 08:00 Pulse 88 03/21/22 16:10 Respiratory Rate 18 03/24/22 07:28 Respiratory Effort Non-Labored 03/24/22 08:00 Respiratory Depth Normal 03/24/22 08:00 Respiratory Pattern Normal 03/24/22 08:00 Blood Pressure 123/77 03/24/22 07:28 Blood Pressure Mean 93 03/21/22 16:01 Blood Pressure Position Supine 03/21/22 10:17 Pulse Oximetry 95 03/24/22 07:28 Oxygen Delivery Method Room Air 03/24/22 07:28 Oxygen Flow Rate 0 03/24/22 07:28 Pain Level 0 03/24/22 07:28 Intake & Output 03/23/22 03/23/22 03/24/22 11:59 23:59 11:59 Intake Total 460 / 1570 1110 / 1570 120 / 120 Output Total 350 / 850 500 / 850 600 / 600 Balance 110 / 720 610 / 720 -480 / -480 Intake: IV 10 Oral 460 / 1560 1100 / 1560 120 / 120 Output: Urine 350 / 850 500 / 850 600 / 600 Other: Urine Color Dark Jaymie Dark Jaymie Light Jaymie Brown Urine Appearance Clear Clear Clear Data Completed and Pending Labs on day of discharge: Labs from last 24 hours 03/24/22 03/22/22 11:35 07:10 25-OH Vitamin D Total 39.8 COVID-19 Source Nasal/Nares SARS-CoV-2 (PCR) Pending [facility] All Active Problems Closed fracture of greater trochanter of left femur (Acute 03/19/22) Discharge planning issues (Acute) DVT prophylaxis (Acute) Pain, acute due to trauma (Acute) Ambulatory dysfunction (Acute) Periprosthetic hip fracture (Acute) Right kidney stone (Acute) Nocturia (Acute) Frequent falls (Acute) Progressive supranuclear palsy (Chronic) Anxiety (Chronic) Diabetic neuropathy (Acute) Urinary incontinence (Acute) Constipation (Acute) Memory loss (Acute) Gait abnormality (Acute) H/O esophagogastroduodenoscopy (Chronic ~04/29/19) Fever (Acute) Confusion (Acute) Right hip pain (Acute) GERD (gastroesophageal reflux disease) (Chronic) COPD (chronic obstructive pulmonary disease) (Chronic) S/P total knee replacement (Acute) S/P Arcadio fundoplication (without gastrostomy tube) procedure (Acute) [place] [facility] Depression (Chronic) Obesity (Chronic) Hyperlipidemia (Acute) Insomnia (Acute) Diverticulosis (Acute) Sleep apnea (Acute) Osteoarthritis (Chronic) History of colonic polyps (Acute) History of kidney stones (Acute) History of cardiac cath (Chronic) Shoulder joint pain (Acute) Cerumen impaction (Acute) History of total hip arthroplasty (Acute) Incisional hernia (Acute) Inguinal hernia (Acute) Chronic low back pain (Acute) Unsteady gait (Acute) Difficulty swallowing (Acute) Behavioral and psychological symptoms of dementia (Acute) Diabetes mellitus (Chronic) Medical History Esophageal stricture GERD (gastroesophageal reflux disease) Hiatal hernia Surgical History History of colonoscopy History of lumbar laminectomy for spinal cord decompression History of shoulder surgery Total replacement of hip Family History Mother Dementia COPD (chronic obstructive pulmonary disease) Other Cancer Diabetes Heart disease Social History Smoking/Tobacco Use Status: Never Smoking risk assessment performed?: Yes Alcohol Intake: current Alcohol Intake frequency: holidays/special occasions only Drug use: Never Substance use type: does not use Details: alcohol: one year Household members: spouse Housing: house Number of Children: 2 number of grandchildren: 3 Pets and animals: Yes Pets and animals: dog(s) What is your relationship status?: Panel score (0-1 are the most socially isolated patients): 1 What type of physical activity do you participate in: none Seatbelt use: always Do you feel safe at home: Yes Do you feel safe in your relationship?: Yes
--- NOTE | 2022-03-24 11:59 | CMDISCH_ITS ---
- If Service Date Differs Date of service: 03/25/22 Time of Service: 09:30 LACE Index Scoring Tool - Questions: Length of Stay (in days): 3 Acuity (Admit via E.D.?): Yes Comorbidities: Diabetes w/o Complication, Chronic Pulmonary Disease E.D. Visits: 1 - Answers: Total Score: 10 Risk of Readmission: High Risk Care Management Discharge Reason for Hospitalization: Periprosthetic L hip fracture/traumatic Discharge Plan: Discharge to [facility] via facility fan for STR. Follow up with community providers and discharge plan of care as prescribed. Patient/Family Education Needs: Review discharge instructions, medications, limitations and plan to follow up with community providers. ask me three. Services Needed at Discharge: Correction Facility ([facility]), Transportation (Via facility van)
[2022-03-24 12:39] LABS: COVID-19 PCR Negative (Negative)
[2022-03-24] MEDS: Acetaminophen 500 MG TAB 1000 MG PO (14:13)
[2022-03-24 14:46] VITALS: BP 124/82; PULSE 100; RESP 20; TEMP 36.6; O2SAT 93
[2022-03-24 23:05] VITALS: BP 94/59; PULSE 91; RESP 20; TEMP 36.1; O2SAT 94
[2022-03-25 05:58] VITALS: BP 116/74; PULSE 82; RESP 16; TEMP 36.9; O2SAT 94
--- NOTE | 2022-03-25 07:59 | DI.RAD_ITS ---
Exam(s) XR HIP LT AP LAT ONLY EXAM: XR HIP LT AP LAT ONLY CLINICAL HISTORY: Evaluate fracture after weight-bearing TECHNIQUE: COMPARISON: CR XR HIP LT COMPLETE AP PELVIS from 09/14/2020 CR XR HIP LT COMPLETE AP PELVIS from 03/21/2022 FINDINGS: Four views were obtained and show minimally displaced intertrochanteric fracture extending through fe moral component of total hip prosthesis, no gross interval change in alignment in comparison with exa mination of March 21. IMPRESSION: RADIATION DOSE DELIVERED: Total DLP
[2022-03-25] MEDS: Docusate Sodium 100 MG CAP 200 MG PO (08:09)
[2022-03-25] MEDS: Ascorbic Acid 500 MG TAB PO (08:09)
[2022-03-25] MEDS: Rivastigmine 1.5 MG CAP 3 MG PO (08:09)
[2022-03-25] MEDS: glipiZIDE 10 MG TAB PO (08:09)
[2022-03-25] MEDS: Cyanocobalamin 500 MCG TAB 1000 MCG PO (08:09)
[2022-03-25] MEDS: Famotidine 20 MG TAB PO (08:09)
[2022-03-25] MEDS: Sucralfate 1 GM TAB PO (08:09)
[2022-03-25] MEDS: Carbidopa 25/Levodopa 100 TAB PO (08:09)
[2022-03-25] MEDS: FLUoxetine 20 MG CAP 40 MG PO (08:09)
[2022-03-25] MEDS: Lisinopril 10 MG TAB PO (08:10)
[2022-03-25] MEDS: metFORMIN 500 MG TAB PO (08:10)
[2022-03-25] MEDS: Oxybutynin 5 MG TAB PO (08:10)
[2022-03-25] MEDS: Polyethylene Glycol 3350 17 GM PACKET PO (08:10)
[2022-03-25] MEDS: Gabapentin 300 MG CAP 900 MG PO (08:10)
[2022-03-25] MEDS: Cholecalciferol (Vitamin D3) 1,000 UNIT TAB 1000 UNITS PO (08:10)
[2022-03-25] MEDS: Pantoprazole 40 MG TABCR PO (08:10)
[2022-03-25] MEDS: Insulin Aspart 300 UNITS/3 ML PEN SC (08:12)
--- NOTE | 2022-03-25 08:35 | DSE_ITS ---
Date of service: 03/25/22 Time of Service: 07:36 DS: Diagnosis Discharge Diagnosis (1) Closed fracture of greater trochanter of left femur: Start date: 03/25/22 Start time: 08:36 Status: Acute Asessment and Plan: Orthopedics was consulted and they recommended nonoperative management. He worked with PT and has been doing well Pain has been controlled with tylenol and oxycodone. He has been accepted at [facility] and is being discharged there this am discussed with Dr. Pretty (2) Diabetes mellitus: Start date: 03/25/22 Start time: 08:51 Status: Chronic Asessment and Plan: Continue home medications Discharge Plan Disposition Patient Disposition: SNF (LEVEL 1) [facility] Condition: Improving Discharge Details Reason For Visit: periprosthetic L hip fracture/traumatic Admit Date/Time: 03/21/22 15:28 Admit Provider: Winnie Hay Attending Provider: Winnie Hay Primary Care Provider: Awilda Rollins Hospital Course Hospital Course: Valdemar Smith is a 71-year-old man with a history of Parkinson's disease, GERD, COPD, diabetes, past hx of bilateral hip replacement. He presented to emergency department 03/22/22 with the complaint of left hip pain.? Patient reports that o n 03/19/2022 he was using his walker as usual, tried to walk backward, lost his balance. Xrays and CT was obtained and orthopedics consulted. Dr. Lobo, who stated stable non-op fracture, recommended inpatient admission to medicine for PT, further eval. Fracture remains stable. He is a good candidate for [facility] and he is willing to go. We have secured a bed. He will be transferred this afternoon by EMS. Home Meds and New Rx's Prescriptions: New diclofenac sodium 1 % Gel 4 g topical QID Qty: 100 0RF Continued cholecalciferol (vitamin D3) 1,000 unit capsule 1,000 unit PO DAILY ascorbate calcium (vitamin C) 500 mg tablet 500 mg PO DAILY sucralfate 1 gram tablet 1 g PO QACHS fluticasone propionate [Flonase Allergy Relief] 50 mcg/actuation spray,suspension 1 spray intranasal BID Rx Instructions: administer into each nostril docusate sodium 100 mg tablet 200 mg PO DAILY Qty: 180 0RF carbidopa-levodopa 25-100 mg tablet 1 tab PO TID Qty: 270 3RF Rx Instructions: WITH MEALS (0800,1200,1700) carbidopa-levodopa 25-250 mg tablet 1 tab PO TID Qty: 360 3RF Rx Instructions: WITH MEALS (0800,1200,1700) amantadine HCl 100 mg tablet 100 mg PO BID Qty: 180 3RF Rx Instructions: Take am and lunchtime gabapentin 300 mg capsule 900 mg PO TID fluoxetine 40 mg capsule 40 mg PO DAILY metformin 500 mg tablet 500 mg PO BID famotidine 20 mg tablet 20 mg PO DAILY cyanocobalamin (vitamin B-12) 1,000 mcg tablet 1,000 mcg PO DAILY pravastatin 40 mg tablet 40 mg PO DAILY oxybutynin chloride 5 mg tablet 5 mg PO BID rivastigmine tartrate 3 mg capsule See Rx Instructions .ROUTE .COMPLEX Qty: 180 3RF Dose Instruction: Take 1 capsule by mouth twice daily Rx Instructions: Take 1 capsule by mouth twice daily glipizide 10 MG tablet 10 mg PO DAILY lisinopril 10 MG tablet 10 mg PO DAILY pantoprazole 40 mg tablet,delayed release (DR/EC) 40 mg PO BID Label Comments: TAKE ONE TABLET BY MOUTH TWICE A DAY Discharge Instructions Instructions: Constipation (DC), Fall Prevention (DC), Hip Fracture (GEN) Stand Alone Forms: Nursing Discharge Form Referrals: Martin Lobo MD [ [facility] STAFF PHYSICIAN] - 04/08/22 10:00 am Activity:: Activity as Tolerated Equipment/Supplies:: No Equipment Needed Diet:: Low Sodium Discharge Orders Discharge Orders: Discharge Order (Routine); Ordered 03/25/22 Ordered By: Manoj Pretty DS: Summary Time Spent with Patient providing and/or coordinating discharge services: Less than 30 minutes Status at Discharge Functional status at discharge: uses cane/walker Overall status at discharge: patient is progressing back to baseline Mental Status: mental status grossly normal Speech and Movement: speech and movement normal Mood: congruent mood Affect: normal affect Exam Const General: cooperative, comfortable and no acute distress Resp Effort & Inspection: normal respiratory effort Auscultation: clear to auscultation bilaterally Cardio Jugular venous pressure: no JVD Rate: regular rate Rhythm: regular rhythm Heart Sounds: S1 normal GI Inspection: normal to inspection Palpation: soft Auscultation: normal bowel sounds Skin General skin exam: no rashes or lesions noted Neuro General: patient alert, patient awake and patient oriented x3 Extrem General: normal to inspection and other (pain to left hip with outter rotation) Psych Mental Status: mental status grossly normal Speech and Movement: speech and movement normal Mood: congruent mood Affect: normal affect DS: Data Vitals/I&O Vitals and I&O: Vital Signs Temperature 36.9 C 03/25/22 05:58 Temperature Source Tympanic 03/25/22 05:58 Pulse 82 03/25/22 05:58 Pulse Rhythm Regular 03/25/22 04:39 Pulse 88 03/21/22 16:10 Respiratory Rate 16 03/25/22 05:58 Respiratory Effort Non-Labored 03/25/22 04:39 Respiratory Depth Normal 03/25/22 04:39 Respiratory Pattern Normal 03/24/22 21:00 Blood Pressure 116/74 03/25/22 05:58 Blood Pressure Mean 93 03/21/22 16:01 Blood Pressure Position Supine 03/21/22 10:17 Pulse Oximetry 94 03/25/22 05:58 Oxygen Delivery Method Room Air 03/25/22 05:58 Oxygen Flow Rate 0 03/25/22 05:58 Pain Level 0 03/25/22 05:58 Comment 03/24/22 23:05 Intake & Output 03/24/22 03/24/22 03/25/22 11:59 23:59 11:59 Intake Total 120 / 620 500 / 620 Output Total 600 / 1150 550 / 1150 400 / 400 Balance -480 / -530 -50 / -530 -400 / -400 Intake: Oral 120 / 620 500 / 620 Output: Urine 600 / 1150 550 / 1150 400 / 400 Other: Urine Color Light Jaymie Yellow Yellow Urine Appearance Clear Cloudy Cloudy Stool Size Moderate Stool Characteristics Soft Liquid Brown Data Completed and Pending Completed studies during hospitalization [Text1]: FINDINGS: Bilateral? hip prostheses.? No dislocation. Acute fracture left greater trochanter, nondisplaced.? No additional fractures.? Degenerative changes lower lumbar spine. IMPRESSION: Nondisplaced fracture left greater trochanter. FINDINGS: Left? hip prosthesis creates artifact. Nondisplaced fracture extending obliquely from the greater trochanter through the? lesser trochanter.? No additional fractures.? No abnormal lucencies around the prosthesis. IMPRESSION: Nondisplaced fracture through the intertrochanteric region the femur.? Intact prosthesis. Labs on day of discharge: Labs from last 24 hours 03/24/22 11:35 COVID-19 Source Nasal/Nares SARS-CoV-2 (PCR) Negative PFSH All Active Problems Closed fracture of greater trochanter of left femur (Acute 03/19/22) Discharge planning issues (Acute) DVT prophylaxis (Acute) Pain, acute due to trauma (Acute) Ambulatory dysfunction (Acute) Periprosthetic hip fracture (Acute) Right kidney stone (Acute) Nocturia (Acute) Frequent falls (Acute) Progressive supranuclear palsy (Chronic) Anxiety (Chronic) Diabetic neuropathy (Acute) Urinary incontinence (Acute) Constipation (Acute) Memory loss (Acute) Gait abnormality (Acute) H/O esophagogastroduodenoscopy (Chronic ~04/29/19) Fever (Acute) Confusion (Acute) Right hip pain (Acute) GERD (gastroesophageal reflux disease) (Chronic) COPD (chronic obstructive pulmonary disease) (Chronic) S/P total knee replacement (Acute) S/P Arcadio fundoplication (without gastrostomy tube) procedure (Acute) x2 at [facility] [place] Depression (Chronic) Obesity (Chronic) Hyperlipidemia (Acute) Insomnia (Acute) Diverticulosis (Acute) Sleep apnea (Acute) Osteoarthritis (Chronic) History of colonic polyps (Acute) History of kidney stones (Acute) History of cardiac cath (Chronic) Shoulder joint pain (Acute) Cerumen impaction (Acute) History of total hip arthroplasty (Acute) Incisional hernia (Acute) Inguinal hernia (Acute) Chronic low back pain (Acute) Unsteady gait (Acute) Difficulty swallowing (Acute) Behavioral and psychological symptoms of dementia (Acute) Diabetes mellitus (Chronic) Medical History Esophageal stricture GERD (gastroesophageal reflux disease) Hiatal hernia Surgical History History of colonoscopy History of lumbar laminectomy for spinal cord decompression History of shoulder surgery Total replacement of hip Family History Mother Dementia COPD (chronic obstructive pulmonary disease) Other Cancer Diabetes Heart disease Social History Smoking/Tobacco Use Status: Never Smoking risk assessment performed?: Yes Alcohol Intake: current Alcohol Intake frequency: holidays/special occasions only Drug use: Never Substance use type: does not use Details: alcohol: one year Household members: spouse Housing: house Number of Children: 2 number of grandchildren: 3 Pets and animals: Yes Pets and animals: dog(s) What is your relationship status?: Panel score (0-1 are the most socially isolated patients): 1 What type of physical activity do you participate in: none Seatbelt use: always Do you feel safe at home: Yes Do you feel safe in your relationship?: Yes
[2022-03-25 08:39] VITALS: BP 117/75; PULSE 83; RESP 18; TEMP 36.9; O2SAT 96
[2022-03-25] MEDS: Fluticasone NASAL SPRAY 16 GM BTL NS (08:55)
[2022-03-25] MEDS: Diclofenac 1% Gel 100 GM TUBE TP (08:55)
== END 2022-03-25 09:39 | disposition skilled nursing facility (03) | DRG 536 ==
LOC: ER 16:24 → MS 16:34
PROVIDERS: Nurse Practitioner Family; Admitting Provider Internal Medicine; Emergency Provider Student in an Organized Health Care Education/Training Program; PCP Nurse Practitioner Family; Visit Provider Internal Medicine
DX: S72.115A Nondisplaced fracture of greater trochanter of left femur, initial encounter for closed fracture (principal); M97.02XA Periprosthetic fracture around internal prosthetic left hip joint, initial encounter; G23.1 Progressive supranuclear ophthalmoplegia [Steele-Richardson-Olszewski]; W01.0XXA Fall on same level from slipping, tripping and stumbling without subsequent striking against object, initial encounter; G20 Parkinson's disease; Z96.643 Presence of artificial hip joint, bilateral; N20.0 Calculus of kidney; R35.1 Nocturia; R29.6 Repeated falls; F41.9 Anxiety disorder, unspecified; E11.40 Type 2 diabetes mellitus with diabetic neuropathy, unspecified; R32 Unspecified urinary incontinence; K59.00 Constipation, unspecified; R26.9 Unspecified abnormalities of gait and mobility; K21.9 Gastro-esophageal reflux disease without esophagitis; J44.9 Chronic obstructive pulmonary disease, unspecified; F32.A Depression, unspecified; E66.9 Obesity, unspecified; Z68.32 Body mass index [BMI] 32.0-32.9, adult; E78.5 Hyperlipidemia, unspecified; G47.00 Insomnia, unspecified; G47.30 Sleep apnea, unspecified; M54.50 Low back pain, unspecified; G89.29 Other chronic pain; R13.10 Dysphagia, unspecified; Z66 Do not resuscitate; F02.80 Dementia in other diseases classified elsewhere, unspecified severity, without behavioral disturbance, psychotic disturbance, mood disturbance, and anxiety; K22.2 Esophageal obstruction; G89.11 Acute pain due to trauma; M25.552 Pain in left hip
CPT/HCPCS: 36415; 80053; 82306; 82550; 87635; 96374; 97110; 97166; 97167; 97530; 99222; 99285; 73502; 73700; 81003; 81015; 85025; 87086; 99223; 99231; 99233; 99238; J2270; J3490

== ENCOUNTER 2022-04-08 10:11 | Outpatient (CLI) | payer MEDICARE, SELFPAY ==
--- NOTE | 2022-04-08 10:00 | DI.RAD_ITS ---
Exam(s) XR HIP LT AP LAT ONLY EXAM: XR HIP LT AP LAT ONLY INDICATION: L hip fx. COMPARISON: CR XR HIP LT AP LAT ONLY from 03/25/2022 TECHNIQUE: 2D digital imaging was performed. Two views. FINDINGS: There has been no change in the alignment of the intertrochanteric fracture of the left hip. There has been no change in alignment of the hip prostheses. No new abnormalities. DATA REPOSITORY: RADIATION DOSE DELIVERED:
== END 2022-04-08 10:12 | disposition home or self-care (01) ==
LOC: DIORS 10:12
PROVIDERS: PCP Nurse Practitioner Family; Referring Provider Nurse Practitioner Family; Visit Provider Physician Assistant
DX: S72.112A Displaced fracture of greater trochanter of left femur, initial encounter for closed fracture (principal); W19.XXXA Unspecified fall, initial encounter; G20 Parkinson's disease; R29.6 Repeated falls
CPT/HCPCS: 99215; 73502

== ENCOUNTER 2022-05-09 15:08 | Outpatient (CLI) | payer MEDICARE, SELFPAY ==
--- NOTE | 2022-05-09 14:00 | DI.RAD_ITS ---
Exam(s) XR HIP LT AP LAT ONLY EXAM: XR HIP LT AP LAT ONLY CLINICAL HISTORY: left hip fracture. TECHNIQUE: 2D digital imaging was performed. COMPARISON: CR XR HIP LT AP LAT ONLY from 04/08/2022 FINDINGS: Two views Position alignment of the components of prosthesis remain stable. No obvious loosening. However, th ere is some increasing callus formation around what appears to be a subtle nondisplaced fracture in t he lower intertrochanteric region-lateral aspect. Lesser trochanter appears unremarkable. IMPRESSION: DATA REPOSITORY: RADIATION DOSE DELIVERED:
== END 2022-05-09 15:09 | disposition home or self-care (01) ==
LOC: DIORS 15:44
PROVIDERS: PCP Nurse Practitioner Family; Referring Provider Nurse Practitioner Family; Visit Provider Student in an Organized Health Care Education/Training Program
DX: S72.112A Displaced fracture of greater trochanter of left femur, initial encounter for closed fracture (principal); X58.XXXA Exposure to other specified factors, initial encounter; G20 Parkinson's disease; R26.9 Unspecified abnormalities of gait and mobility
CPT/HCPCS: 99212; 73502

== ENCOUNTER 2022-06-27 15:38 | Outpatient (CLI) | payer MEDICARE, SELFPAY ==
--- NOTE | 2022-06-27 14:30 | DI.RAD_ITS ---
Exam(s) XR HIP LT AP LAT ONLY EXAM: XR HIP LT AP LAT ONLY CLINICAL HISTORY: F/U L FEMUR FRACTURE. TECHNIQUE: 2D digital imaging was performed. COMPARISON: CR XR HIP LT AP LAT ONLY from 05/09/2022 FINDINGS: Two views Stable position alignment of the components of the prosthesis. No fracture nor loosening evident. IMPRESSION: DATA REPOSITORY: RADIATION DOSE DELIVERED:
== END 2022-06-27 15:39 | disposition home or self-care (01) ==
LOC: DIORS 15:38
PROVIDERS: PCP Nurse Practitioner Family; Referring Provider Nurse Practitioner Family; Visit Provider Student in an Organized Health Care Education/Training Program
DX: S72.112A Displaced fracture of greater trochanter of left femur, initial encounter for closed fracture (principal); X58.XXXA Exposure to other specified factors, initial encounter
CPT/HCPCS: 99213; 73502

== ENCOUNTER → 2022-08-24 09:41 | Outpatient (BNVA) | payer MEDICARE, SELFPAY | PROVIDERS: PCP Nurse Practitioner Family; Referring Provider Nurse Practitioner Family; Visit Provider Psychiatry & Neurology Neurology | DX: G20 Parkinson's disease (principal); R35.0 Frequency of micturition; G47.33 Obstructive sleep apnea (adult) (pediatric); F32.A Depression, unspecified; I10 Essential (primary) hypertension; J44.9 Chronic obstructive pulmonary disease, unspecified; R41.3 Other amnesia; K59.00 Constipation, unspecified; E11.40 Type 2 diabetes mellitus with diabetic neuropathy, unspecified | CPT/HCPCS: 99215 ==

== ENCOUNTER → 2022-10-26 13:15 | Outpatient (BNVA) | payer MEDICARE, SELFPAY | PROVIDERS: PCP Nurse Practitioner Family; Referring Provider Nurse Practitioner Family; Visit Provider Psychiatry & Neurology Neurology | DX: G23.1 Progressive supranuclear ophthalmoplegia [Steele-Richardson-Olszewski] (principal); G47.30 Sleep apnea, unspecified; R26.9 Unspecified abnormalities of gait and mobility; R26.81 Unsteadiness on feet; R13.10 Dysphagia, unspecified; R41.3 Other amnesia; E11.40 Type 2 diabetes mellitus with diabetic neuropathy, unspecified; K59.00 Constipation, unspecified; R32 Unspecified urinary incontinence; F41.9 Anxiety disorder, unspecified; R35.1 Nocturia; R29.6 Repeated falls | CPT/HCPCS: 99215 ==

== ENCOUNTER 2022-12-28 06:40 | Emergency (ER) | payer MEDICARE, SELFPAY ==
[2022-12-28] VITALS (28 sets, daily range): BP systolic 101–144; BP diastolic 65–79; PULSE 59–81; RESP 13–25; TEMP 36.3; O2SAT 97
--- NOTE | 2022-12-28 06:30 | RT.EKG_ITS ---
APPROVED REPORT Exam: Resting ECG Reason for Exam: Chest Pain Patient Location: E HR:76 bpm ECG Measurements Heart Rate 76 AXIS NJ 205 P 64 QRSd 97 QRS -21 QT 392 T -6 QTc 442 Conclusion Coarse baseline, Sinus rhythm...normal P axis, V-rate 60- 99
--- NOTE | 2022-12-28 06:45 | DI.RAD_ITS ---
Exam(s) XR CHEST 2V PA LATERAL EXAM: XR CHEST 2V PA LATERAL CLINICAL HISTORY: substernal chest pain, improved TECHNIQUE: 2D digital imaging was performed. COMPARISON: No exams were available for comparison FINDINGS: HEART: Normal size. Aorta: Mildly tortuous. Not dilated. PULMONARY VASCULATURE: Normal. LUNGS: Clear. PLEURAL SPACE: No pleural effusion or pneumothorax. BONE:Unremarkable for age. IMPRESSION: No acute abnormality. DATA REPOSITORY: RADIATION DOSE DELIVERED:
--- NOTE | 2022-12-28 06:59 | ED.GENADUL_ITS ---
Discharge Plan Discharge Details Chief Complaint: Chest Pain Primary Care Provider: Awilda Rollins ED Provider: Andrea Argueta Home Meds and New Rx's Prescriptions: No Action cholecalciferol (vitamin D3) 1,000 unit capsule 1,000 unit PO DAILY ascorbate calcium (vitamin C) 500 mg tablet 500 mg PO DAILY sucralfate 1 gram tablet 1 g PO QACHS docusate sodium 100 mg tablet 200 mg PO DAILY Qty: 180 0RF carbidopa-levodopa 25-250 mg tablet 1 tab PO TID Qty: 360 3RF Rx Instructions: WITH MEALS (0800,1200,1700) fluticasone propionate [Flonase Allergy Relief] 50 mcg/actuation spray,suspension 1 spray intranasal DAILY Rx Instructions: administer into each nostril propranolol 20 mg tablet 20 mg PO BID Qty: 180 3RF methylphenidate HCl 10 mg tablet 10 mg PO .COMPLEX MDD 20mg Qty: 60 0RF Rx Instructions: 10 mg orally once daily in am; ok to take 2nd at noon if still overly fatigued; gabapentin 300 mg capsule 900 mg PO TID fluoxetine 40 mg capsule 40 mg PO DAILY acetaminophen 500 mg capsule 500 mg PO Q6H PRN metformin 500 mg tablet 500 mg PO BID famotidine 20 mg tablet 20 mg PO DAILY cyanocobalamin (vitamin B-12) 1,000 mcg tablet 1,000 mcg PO DAILY pravastatin 40 mg tablet 40 mg PO DAILY oxybutynin chloride 5 mg tablet 5 mg PO BID rivastigmine tartrate 3 mg capsule See Rx Instructions .ROUTE .COMPLEX Qty: 180 3RF Dose Instruction: Take 1 capsule by mouth twice daily Rx Instructions: Take 1 capsule by mouth twice daily glipizide 10 MG tablet 10 mg PO DAILY lisinopril 10 MG tablet 10 mg PO DAILY pantoprazole 40 mg tablet,delayed release (DR/EC) 40 mg PO BID Patient Comments: TAKE ONE TABLET BY MOUTH TWICE A DAY Medical Decision Making This is a 72-year-old male who presents from home with the onset at 5 AM with substernal chest pressure. He was given 324 mg of aspirin and 1 sublingual nitroglycerin by EMS. By time of arrival to the ER his discomfort has completely resolved. The patient has a history of atypical Parkinsons/progressive supranuclear palsy, hypertension, hyperlipidemia, type 2 diabetes, obstructive sleep apnea (not u singCPAP), COPD, GERD. He has been followed by palliative care and states that he is DNR DNI. Patient arrives improved. Blood pressure 131/73 with a pulse of 59. He is afebrile and oxygenating normally. Differential diagnosis would include GERD/nutcracker esophagus, ACS, would consider PE given that he is fairly sessile. Patient IV access established, placed on a athletic monitor, screening labs, chest x-ray and EKG obtained. As the patient presented at the end of shift, he will be signed out to Dr. Ashraf. Please see his note regarding final impression and disposition. HPI General Mode of arrival: EMS . Date/Time Provider Initiated Documentation: 12/28/22 06:47 . Limitations to Documentation: no limitations . Information obtained by: patient and EMS . History of Present Illness 72 year old M presents to the emergency department with the chief complaint of Substernal chest pressure at 5 AM, now resolved, described as moderate, Quality is described as dull, and is localized to the chest. Patient reports no radiation. Patient started experiencing this minute(s) and it has been now resolved. No relieving factors improve symptom(s), No exacerbating factors reported . Patient notes denies cough, nausea/vomiting, shortness of breath and syncope. Patient did receive the following treatments prior to arrival, other (324 mg aspirin and 1 sublingual nitroglycerin) Related Data Home Medications Medication Instructions Recorded Confirmed glipizide 10 mg tablet 10 mg PO DAILY 04/20/16 12/28/22 lisinopril 10 mg tablet 10 mg PO DAILY 04/20/16 12/28/22 gabapentin 300 mg capsule 900 mg PO TID 04/17/19 12/28/22 cholecalciferol (vitamin D3) 25 1,000 unit PO DAILY 06/13/19 12/28/22 mcg (1,000 unit) capsule ascorbate calcium (vitamin C) 500 500 mg PO DAILY 08/12/20 12/28/22 mg tablet fluoxetine 40 mg capsule 40 mg PO DAILY 03/24/21 12/28/22 sucralfate 1 gram tablet 1 g PO QACHS 08/25/21 12/28/22 cyanocobalamin (vitamin B-12) 1,000 mcg PO DAILY 12/21/21 12/28/22 1,000 mcg tablet famotidine 20 mg tablet 20 mg PO DAILY 12/21/21 12/28/22 metformin 500 mg tablet 500 mg PO BID 12/21/21 12/28/22 pravastatin 40 mg tablet 40 mg PO DAILY 12/21/21 12/28/22 carbidopa 25 mg-levodopa 250 mg 1 tab PO TID #360 tabs 02/23/22 12/28/22 tablet docusate sodium 100 mg tablet 200 mg PO DAILY #180 tabs 02/23/22 12/28/22 oxybutynin chloride 5 mg tablet 5 mg PO BID 02/23/22 12/28/22 rivastigmine tartrate 3 mg capsule See Rx Instructions .Route 03/07/22 12/28/22 .COMPLEX #180 caps pantoprazole 40 mg tablet,delayed 40 mg PO BID 03/21/22 12/28/22 release acetaminophen 500 mg capsule 500 mg PO Q6H PRN 04/06/22 12/28/22 fluticasone propionate 50 1 spray intranasal DAILY 08/24/22 12/28/22 mcg/actuation nasal spray,suspension (Flonase Allergy Relief) methylphenidate HCl 10 mg tablet 10 mg PO .COMPLEX #60 tabs 10/26/22 12/28/22 propranolol 20 mg tablet 20 mg PO BID #180 tabs 10/26/22 12/28/22 Previous Rx's Medication Instructions Recorded carbidopa 25 mg-levodopa 250 mg 1 tab PO TID #360 tabs 02/23/22 tablet docusate sodium 100 mg tablet 200 mg PO DAILY #180 tabs 02/23/22 rivastigmine tartrate 3 mg capsule See Rx Instructions .Route 03/07/22 .COMPLEX #180 caps methylphenidate HCl 10 mg tablet 10 mg PO .COMPLEX #60 tabs 10/26/22 propranolol 20 mg tablet 20 mg PO BID #180 tabs 10/26/22 Allergies Allergy/AdvReac Type Severity Reaction Status Date / Time bupropion HCl AdvReac Intermediate shakey/metal Verified 12/28/22 07:25 [From Wellbutrin] taste/off balance Penicillins AdvReac Intermediate Skin Rash Verified 12/28/22 07:25 foam tape Allergy Intermediate Skin Rash Uncoded 12/28/22 07:25 General Stated Complaint: Chest Pain LORA: 3 Review of Systems Narrative: 8 systems reviewed and otherwise negative PFSH All Active Problems Polypharmacy (Acute) Advanced care planning/counseling discussion (Acute) Dependence on wheelchair (Acute) Closed fracture of greater trochanter of left femur (Acute 03/19/22) Pain, acute due to trauma (Acute) Ambulatory dysfunction (Acute) Periprosthetic hip fracture (Acute) Right kidney stone (Acute) Nocturia (Acute) Frequent falls (Acute) Progressive supranuclear palsy (Chronic) Anxiety (Chronic) Diabetic neuropathy (Acute) Urinary incontinence (Acute) Constipation (Acute) Memory loss (Acute) Gait abnormality (Acute) H/O esophagogastroduodenoscopy (Chronic ~04/29/19) Fever (Acute) Confusion (Acute) Right hip pain (Acute) GERD (gastroesophageal reflux disease) (Chronic) COPD (chronic obstructive pulmonary disease) (Chronic) S/P total knee replacement (Acute) S/P Arcadio fundoplication (without gastrostomy tube) procedure (Acute) x2 at [facility] [place] Depression (Chronic) Obesity (Chronic) Hyperlipidemia (Acute) Insomnia (Acute) Diverticulosis (Acute) Sleep apnea (Acute) Osteoarthritis (Chronic) History of colonic polyps (Acute) History of kidney stones (Acute) History of cardiac cath (Chronic) Shoulder joint pain (Acute) Cerumen impaction (Acute) History of total hip arthroplasty (Acute) Incisional hernia (Acute) Inguinal hernia (Acute) Chronic low back pain (Acute) Unsteady gait (Acute) Difficulty swallowing (Acute) Behavioral and psychological symptoms of dementia (Acute) Diabetes mellitus (Chronic) Medical History Esophageal stricture GERD (gastroesophageal reflux disease) Hiatal hernia Palliative care patient Type 2 diabetes mellitus Surgical History History of colonoscopy History of lumbar laminectomy for spinal cord decompression History of shoulder surgery Total replacement of hip Family History Mother Dementia COPD (chronic obstructive pulmonary disease) Other Cancer Diabetes Heart disease Social History Smoking/Tobacco Use Status: Never Smoking risk assessment performed?: Yes Alcohol Intake: current Alcohol Intake frequency: holidays/special occasions only Drug use: Never Substance use type: does not use Details: alcohol: one year Household members: spouse Housing: house Number of Children: 2 number of grandchildren: 3 Pets and animals: Yes Pets and animals: dog(s) What is your relationship status?: Panel score (0-1 are the most socially isolated patients): 1 What type of physical activity do you participate in: none Seatbelt use: always Do you feel safe at home: Yes Do you feel safe in your relationship?: Yes Exam Narrative Exam Narrative: GEN: awake, alert, oriented 3. Pleasant, well groomed, interactive. HEAD: Normocephalic, atraumatic ENT: Mucous membranes moist, oropharynx unremarkable, External ear exam unremarkable EYES: PERRL, EOMI NECK: Full ROM, no TAVARES, no menigismus CHEST/RESP: Nontender, clear to auscultation bilateral, no wheeze/rhonchi/rales CARDIOVASCULAR: RRR, no murmur, rub talia. 2+ Rad pulse bilateral ABDOMEN: Soft, nontender, no mass. +Bowel sounds EXT: Full ROM, no edema, no rash Neuro: Grossly normal neurologic exam, conversant, interactive. Psych: Speech fluent, thoughts congruent, affect normal Course Vital Signs Vital signs: Vital Signs Temperature 36.3 C L 12/28/22 06:41 Pulse 59 L 12/28/22 06:41 Respiratory Rate 16 12/28/22 06:41 Blood Pressure 131/73 12/28/22 06:41 Pulse Oximetry 97 12/28/22 06:41 Temperature 36.3 C L 12/28/22 06:41 Temperature Source Oral 12/28/22 06:41 Pulse 59 L 12/28/22 06:41 Respiratory Rate 16 12/28/22 06:41 Blood Pressure 131/73 12/28/22 06:41 Blood Pressure Position Sitting 12/28/22 06:41 Pulse Oximetry 97 12/28/22 06:41 Oxygen Delivery Method Room Air 12/28/22 06:41 Oxygen Flow Rate 0 12/28/22 06:41 Sign Out Sign Out Data: Sign Out Comment: Chest pain, resolved, followup labs/studies/re-eval Last updated by Andrea Argueta MD at 12/28/22 07:13
[2022-12-28 07:21] LABS: Abs Immature Grans 0.03 10^3/uL (0.0-0.06); Absolute Basophil Count 0.04 10^3/uL (0.0-0.2); Absolute Eosinophil Count 0.48 10^3/uL (0.0-0.7); Absolute Lymphocyte Count 1.76 10^3/uL (1.2-3.4); Absolute Monocyte Count 0.73 10^3/uL (0.1-0.8); Absolute Neutrophil Count 3.66 10^3/uL (1.2-6.7); Basophils % 0.6; Eosinophils % 7.2; HCT 43.7 % (40.0-50.0); HGB 14.6 g/dL (13.5-17.5); Immature Grans % 0.4; Lymphocytes % 26.3; MCH 30.6 pg (27.0-33.0); MCHC 33.4 % (32.0-36.0); MCV 92 fL (80-95); MPV 9.1 fL (8.0-11.0); Monocytes % 10.9; Neutrophils % 54.6; Platelet Count 236 10^3/uL (130-400); RBC 4.77 10^6/uL (4.36-5.78); RDW 12.4 % (11.8-14.1)
[2022-12-28 07:58] LABS: ALT 12 U/L (16-63); AST 11 U/L (15-37); Albumin 3.8 g/dL (3.4-5.0); Alkaline Phosphatase 130 U/L (46-116); Anion Gap 11.9 mmol/L (3-11); BUN 22 mg/dL (7-18); Bilirubin, Total 0.5 mg/dL (0.2-1.0); CO2 26.1 mmol/L (21.0-32.0); CREATININE 1.3 mg/dL (0.70-1.30); Calcium 9.1 mg/dL (8.5-10.1); Chloride 104 mmol/L (98-107); Estimated GFR 58.37 (mL/min/1.73m2); Glucose 257 mg/dL (74-106); Magnesium 1.9 mg/dL (1.8-2.4); Potassium 4.1 mmol/L (3.5-5.1); Sodium 142 mmol/L (136-145); Total Protein 7.3 g/dL (6.4-8.2); Troponin I < 50 ng/L (<or=60)
[2022-12-28 08:05] LABS: D-Dimer 431 ng/mlFEU (<500)
--- NOTE | 2022-12-28 08:19 | ED.PROG_ITS ---
Date of service: 12/28/22 Time of Service: 17:39 Medical Decision Making I received signout on this 72-year-old male who is in the emergency department in the setting of chest pain that began at 5 AM this morning. He received 324 mg of aspirin along with nitroglycerin. By the time he arrived in the emergency department his pain felt improved. He is pending a D-dimer and a troponin. He will be due for a 9 AM repeat troponin with chest planning from there. 10:20 AM Patient continued to be pain-free in the ED. He is able to tolerate some oatmeal for breakfast. Repeat ECG was nonischemic. Repeat troponin negative. Patient discharged with return indications including any pain associated with diaphoresis or pain that occurred with activity. He will follow-up with his primary care provider. Sign Out Sign Out Data: Sign Out Comment: Chest pain, resolved, followup labs/studies/re-eval Last updated by Andrea Argueta MD at 12/28/22 07:13 Discharge Plan Disposition Patient Disposition: Home Condition: Stable Discharge Details Clinical Impression: Chest pain Primary Care Provider: Awilda Rollins ED Provider: Abdifatah Ashraf Home Meds and New Rx's Prescriptions: No Action cholecalciferol (vitamin D3) 1,000 unit capsule 1,000 unit PO DAILY ascorbate calcium (vitamin C) 500 mg tablet 500 mg PO DAILY sucralfate 1 gram tablet 1 g PO QACHS docusate sodium 100 mg tablet 200 mg PO DAILY Qty: 180 0RF carbidopa-levodopa 25-250 mg tablet 1 tab PO TID Qty: 360 3RF Rx Instructions: WITH MEALS (0800,1200,1700) fluticasone propionate [Flonase Allergy Relief] 50 mcg/actuation spray,suspension 1 spray intranasal DAILY Rx Instructions: administer into each nostril propranolol 20 mg tablet 20 mg PO BID Qty: 180 3RF methylphenidate HCl 10 mg tablet 10 mg PO .COMPLEX MDD 20mg Qty: 60 0RF Rx Instructions: 10 mg orally once daily in am; ok to take 2nd at noon if still overly fatigued; gabapentin 300 mg capsule 900 mg PO TID fluoxetine 40 mg capsule 40 mg PO DAILY acetaminophen 500 mg capsule 500 mg PO Q6H PRN metformin 500 mg tablet 500 mg PO BID famotidine 20 mg tablet 20 mg PO DAILY cyanocobalamin (vitamin B-12) 1,000 mcg tablet 1,000 mcg PO DAILY pravastatin 40 mg tablet 40 mg PO DAILY oxybutynin chloride 5 mg tablet 5 mg PO BID rivastigmine tartrate 3 mg capsule See Rx Instructions .ROUTE .COMPLEX Qty: 180 3RF Dose Instruction: Take 1 capsule by mouth twice daily Rx Instructions: Take 1 capsule by mouth twice daily glipizide 10 MG tablet 10 mg PO DAILY lisinopril 10 MG tablet 10 mg PO DAILY pantoprazole 40 mg tablet,delayed release (DR/EC) 40 mg PO BID Patient Comments: TAKE ONE TABLET BY MOUTH TWICE A DAY Discharge Instructions Instructions: Chest Pain (ED) Additional Instructions: You were seen in the emergency department for your chest pain. Your blood work and EKG showed no sign of heart attack. If you develop chest pain and can and it is associated with sweating or it travels into her arms or if you have any other concerns please return to the emergency department. Otherwise please follow-up with your primary care provider next week. Discharge Data Discharge Date/Time-TO BE ENTERED AT DEPARTURE: 12/28/22 11:10 Discharge Physician: Abdifatah Ashraf
--- NOTE | 2022-12-28 10:00 | RT.EKG_ITS ---
APPROVED REPORT Exam: Resting ECG Reason for Exam: repeat Patient Location: E HR:79 bpm ECG Measurements Heart Rate 79 AXIS [place] 214 P 49 QRSd 96 QRS -17 QT 386 T 12 QTc 443 Conclusion Sinus rhythm...normal P axis, V-rate 60- 99 Borderline prolonged NY interval...NY >212, V-rate 50- 90 Narrow complex normal sinus rhythm at a rate of 79 with slightly more pronounced first-degree AV bloc k and a [place] interval of 214 ms. QTc within normal limits. No ST segment abnormalities. No T wave. Artifact in limb leads.
[2022-12-28 10:32] LABS: Troponin I < 50 ng/L (<or=60)
== END 2022-12-28 11:10 | disposition home or self-care (01) ==
PROVIDERS: Emergency Medicine; Emergency Provider Emergency Medicine; PCP Nurse Practitioner Family
DX: R07.2 Precordial pain (principal); I10 Essential (primary) hypertension; E78.5 Hyperlipidemia, unspecified; E11.40 Type 2 diabetes mellitus with diabetic neuropathy, unspecified; J44.9 Chronic obstructive pulmonary disease, unspecified
CPT/HCPCS: 36415; 80053; 93005; 99284; 71046; 83735; 84484; 85025; 85379; 93010; 99285

== ENCOUNTER → 2023-01-25 07:23 | Outpatient (BNVA) | payer MEDICARE, SELFPAY | PROVIDERS: PCP Nurse Practitioner Family; Referring Provider Nurse Practitioner Family; Visit Provider Psychiatry & Neurology Neurology | DX: G20 Parkinson's disease (principal); Z99.3 Dependence on wheelchair; R29.6 Repeated falls; R41.3 Other amnesia; R13.10 Dysphagia, unspecified; R32 Unspecified urinary incontinence; K59.00 Constipation, unspecified; R53.83 Other fatigue; F32.A Depression, unspecified; E11.40 Type 2 diabetes mellitus with diabetic neuropathy, unspecified | CPT/HCPCS: 99443 ==

== ENCOUNTER 2023-03-14 02:16 | Emergency (ER) | payer MEDICARE, SELFPAY ==
--- NOTE | 2023-03-14 02:15 | DI.RAD_ITS ---
Exam(s) XR CHEST 2V PA LATERAL EXAM: XR CHEST 2V PA LATERAL CLINICAL HISTORY: cough. TECHNIQUE: 2D digital imaging was performed. COMPARISON: CR XR CHEST 2V PA LATERAL from 12/28/2022 FINDINGS: 2 views: Heart size is upper normal. The mediastinum is not widened. Left lung is clear. There is platelike atelectasis in the right lung base. No pleural effusions. IMPRESSION: There is platelike atelectasis in the right lung base. DATA REPOSITORY: RADIATION DOSE DELIVERED:
--- NOTE | 2023-03-14 02:15 | DI.RAD_ITS ---
Exam(s) XR FOOT RT COMPLETE EXAM: XR FOOT RT COMPLETE CLINICAL HISTORY: pain s/p fall. TECHNIQUE: 2D digital imaging was performed. COMPARISON: No exams were available for comparison FINDINGS: 3 views No evidence of obvious acute fracture nor diastasis of the Lisfranc joint. Mild degenerative changes at the great toe metatarsophalangeal joint noted. Moderate size inferior calcaneal spur noted. There is an exostosis off the proximal aspect the 5th metatarsal, this being the attachment site of t he peroneus brevis tendon. IMPRESSION: No acute osseous findings. Some vascular calcifications noted in the foot. There is no radiographic evidence of osteomyelitis DATA REPOSITORY: RADIATION DOSE DELIVERED:
[2023-03-14 02:18] VITALS: BP 141/88; PULSE 82; RESP 18; TEMP 36.6; O2SAT 95
--- NOTE | 2023-03-14 02:28 | ED.GENADUL_ITS ---
Discharge Plan Disposition Patient Disposition: Home Condition: Stable Discharge Details Clinical Impression: Fall, Contusion of foot, right, Cough Primary Care Provider: Awilda Rollins ED Provider: Austin Bhatia [place] Meds and New Rx's Prescriptions: New levofloxacin 750 mg tablet 750 mg PO DAILY Qty: 5 0RF Continued cholecalciferol (vitamin D3) 1,000 unit capsule 1,000 unit PO DAILY ascorbate calcium (vitamin C) 500 mg tablet 500 mg PO DAILY sucralfate 1 gram tablet 1 g PO QACHS docusate sodium 100 mg tablet 200 mg PO DAILY Qty: 180 0RF fluticasone propionate [Flonase Allergy Relief] 50 mcg/actuation spray,suspen chiara 1 spray intranasal DAILY Rx Instructions: administer into each nostril propranolol 20 mg tablet 20 mg PO BID Qty: 180 3RF gabapentin 300 mg capsule 900 mg PO TID fluoxetine 40 mg capsule 40 mg PO DAILY acetaminophen 500 mg capsule 500 mg PO Q6H PRN methylphenidate HCl 10 mg tablet 10 mg PO .COMPLEX MDD 20mg Qty: 60 0RF Rx Instructions: 10 mg orally once daily in am; ok to take 2nd at noon if still overly fatigued; carbidopa-levodopa 25-250 mg tablet 1 tab PO TID Qty: 360 3RF Rx Instructions: WITH MEALS (0800,1200,1700) rivastigmine tartrate 3 mg capsule See Rx Instructions .ROUTE .COMPLEX Qty: 180 3RF Dose Instruction: Take 1 capsule by mouth twice daily Rx Instructions: Take 1 capsule by mouth twice daily metformin 500 mg tablet 500 mg PO BID famotidine 20 mg tablet 20 mg PO DAILY cyanocobalamin (vitamin B-12) 1,000 mcg tablet 1,000 mcg PO DAILY pravastatin 40 mg tablet 40 mg PO DAILY oxybutynin chloride 5 mg tablet 5 mg PO BID glipizide 10 MG tablet 10 mg PO DAILY lisinopril 10 MG tablet 10 mg PO DAILY pantoprazole 40 mg tablet,delayed release (DR/EC) 40 mg PO BID Patient Comments: TAKE ONE TABLET BY MOUTH TWICE A DAY Discharge Instructions Instructions: Foot Contusion (ED), Acute Cough (ED) Additional Instructions: follow up with his primary care provider within 1 week if he feels more ill, has difficulty breathing or severe pain return to the emergency department Medical Decision Making 72 yo male with hx of gerd, 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 HE states he woke up to use the commode and while transferring fell hitting his right foot on his wheelchair and laid on the ground. HE was on the ground for an hour before family was able to call ems. He did feel nausea and had one episode of vomiting while laying down. HE denies chest pain, dyspnea, abdominal pain, no longer having nausea. He localizes the pain to the mid superior right foot without visible or palpable deformities. HAS intact sensation, full rom of the ankle and toes, normal cap refill. He has a soft nontender abdomen. HE is oriented to person, place and time on my exam. He has had a dry cough for a few days, no wheezing or other adventitious lung sounds. Suspect mechanical fall due to his parkinson's and has frequent falls. Denies hitting his head or loc and has no signs of trauma to the head nor any c spine, t/l spine tenderness and no abdominal or chest tenderness so do not feel any ct imaging indicated. Will obtain screening labs including cbc, cmp, and cxr along with right foot xray. labs show mild wbc of 13, creatinine of 1.4. Pt stable, no complaints now states he feels well. Family who lives with him is at bedside and have noted a cough the last few days. I do not see a focal infiltrate on the cxr, vrad report pending but regardless given his age, mild increase in wbc and cough will begin treatment for possible cap with levofloxacin. He is not requiring oxygen and has stable vitals so do not feel he requires admission, pt feels well enough to go home and family is also comfortable with this. He will f/u with his pcp, return precautions given Differential Diagnosis Differential Diagnosis: fracture, contusion, pneumonia, covid Medical Records Medical records reviewed: Yes I reviewed the patient's medical records. Imaging Data Radiologic Study: Attestation: I personally reviewed and interpreted this imaging study as follows: Imaging: X-Ray My impression: no acute findings foot xray Radiologic Study #2: Attestation: I personally reviewed and interpreted this imaging study as follows: Imaging: X-Ray My impression: no acute findings cxr Lab Data Lab results reviewed: Yes I reviewed the patient's lab results. HPI General Mode of arrival: EMS . Date/Time Provider Initiated Documentation: 03/14/23 02:23 . Limitations to Documentation: no limitations . Information obtained by: patient . History of Present Illness 72 year old M presents to the emergency department with the chief complaint of right foot pain, described as moderate, Patient started experiencing this hour(s) (1) and it has been constant. No relieving factors improve symptom(s), No exacerbating factors reported . Patient notes cough; denies fever/chills. Patient did receive the following treatments prior to arrival, none Related Data Home Medications Medication Instructions Recorded Confirmed glipizide 10 mg tablet 10 mg PO DAILY 04/20/16 03/14/23 lisinopril 10 mg tablet 10 mg PO DAILY 04/20/16 03/14/23 gabapentin 300 mg capsule 900 mg PO TID 04/17/19 03/14/23 cholecalciferol (vitamin D3) 25 1,000 unit PO DAILY 06/13/19 03/14/23 mcg (1,000 unit) capsule ascorbate calcium (vitamin C) 500 500 mg PO DAILY 08/12/20 03/14/23 mg tablet fluoxetine 40 mg capsule 40 mg PO DAILY 03/24/21 03/14/23 sucralfate 1 gram tablet 1 g PO QACHS 08/25/21 03/14/23 cyanocobalamin (vitamin B-12) 1,000 mcg PO DAILY 12/21/21 03/14/23 1,000 mcg tablet famotidine 20 mg tablet 20 mg PO DAILY 12/21/21 03/14/23 metformin 500 mg tablet 500 mg PO BID 12/21/21 03/14/23 pravastatin 40 mg tablet 40 mg PO DAILY 12/21/21 03/14/23 docusate sodium 100 mg tablet 200 mg PO DAILY #180 tabs 02/23/22 03/14/23 oxybutynin chloride 5 mg tablet 5 mg PO BID 02/23/22 03/14/23 pantoprazole 40 mg tablet,delayed 40 mg PO BID 03/21/22 02/17/23 release acetaminophen 500 mg capsule 500 mg PO Q6H PRN 04/06/22 02/17/23 fluticasone propionate 50 1 spray intranasal DAILY 08/24/22 02/17/23 mcg/actuation nasal spray,suspension (Flonase Allergy Relief) propranolol 20 mg tablet 20 mg PO BID #180 tabs 10/26/22 02/17/23 carbidopa 25 mg-levodopa 250 mg 1 tab PO TID #360 tabs 01/25/23 03/14/23 tablet methylphenidate HCl 10 mg tablet 10 mg PO .COMPLEX #60 tabs 01/25/23 02/17/23 rivastigmine tartrate 3 mg capsule See Rx Instructions .Route 01/25/23 03/14/23 .COMPLEX #180 caps levofloxacin 750 mg tablet 750 mg PO DAILY #5 tabs 03/14/23 Previous Rx's Medication Instructions Recorded docusate sodium 100 mg tablet 200 mg PO DAILY #180 tabs 02/23/22 propranolol 20 mg tablet 20 mg PO BID #180 tabs 10/26/22 carbidopa 25 mg-levodopa 250 mg 1 tab PO TID #360 tabs 01/25/23 tablet methylphenidate HCl 10 mg tablet 10 mg PO .COMPLEX #60 tabs 01/25/23 rivastigmine tartrate 3 mg capsule See Rx Instructions .Route 01/25/23 .COMPLEX #180 caps levofloxacin 750 mg tablet 750 mg PO DAILY #5 tabs 03/14/23 Allergies Allergy/AdvReac Type Severity Reaction Status Date / Time bupropion HCl AdvReac Intermediate shakey/metal Verified 03/14/23 02:29 [From Wellbutrin] taste/off balance Penicillins AdvReac Intermediate Skin Rash Verified 03/14/23 02:29 foam tape Allergy Intermediate Skin Rash Uncoded 03/14/23 02:29 General Stated Complaint: Fall/Non TraumaCriteria LORA: 3 Review of Systems All systems reviewed & are unremarkable except as noted in HPI and below Constitutional Constitutional: Denies chills and Denies fever(s) Cardiovascular Cardiovascular: Denies chest pain and Denies dyspnea Respiratory Respiratory: Denies dyspnea Gastrointestinal Gastrointestinal: Denies abdominal pain, Denies nausea and Denies vomiting Musculoskeletal Musculoskeletal: Denies joint swelling Endocrine Endocrine: Denies heat intolerance PFSH All Active Problems (Updated 03/14/23 @ 03:32 by Austin Bhatia MD) Fall (Acute) Contusion of foot, right (Acute) Cough (Acute) Polypharmacy (Acute) Advanced care planning/counseling discussion (Acute) Dependence on wheelchair (Acute) Closed fracture of greater trochanter of left femur (Acute 03/19/22) Pain, acute due to trauma (Acute) Ambulatory dysfunction (Acute) Periprosthetic hip fracture (Acute) Right kidney stone (Acute) Nocturia (Acute) Frequent falls (Acute) Progressive supranuclear palsy (Chronic) Anxiety (Chronic) Diabetic neuropathy (Acute) Urinary incontinence (Acute) Constipation (Acute) Memory loss (Acute) Gait abnormality (Acute) H/O esophagogastroduodenoscopy (Chronic ~04/29/19) Fever (Acute) Confusion (Acute) Right hip pain (Acute) GERD (gastroesophageal reflux disease) (Chronic) COPD (chronic obstructive pulmonary disease) (Chronic) S/P total knee replacement (Acute) S/P [place] fundoplication (without gastrostomy tube) procedure (Acute) x2 [place] [facility] [place] Depression (Chronic) Obesity (Chronic) Hyperlipidemia (Acute) Insomnia (Acute) Diverticulosis (Acute) Sleep apnea (Acute) Osteoarthritis (Chronic) History of colonic polyps (Acute) History of kidney stones (Acute) History of cardiac cath (Chronic) Shoulder joint pain (Acute) Cerumen impaction (Acute) History of total hip arthroplasty (Acute) Incisional hernia (Acute) Inguinal hernia (Acute) Chronic low back pain (Acute) Unsteady gait (Acute) Difficulty swallowing (Acute) Behavioral and psychological symptoms of dementia (Acute) Diabetes mellitus (Chronic) Medical History Esophageal stricture GERD (gastroesophageal reflux disease) Hiatal hernia Palliative care patient Type 2 diabetes mellitus Surgical History History of colonoscopy History of lumbar laminectomy for spinal cord decompression History of shoulder surgery Total replacement of hip Family History Mother Dementia COPD (chronic obstructive pulmonary disease) Other Cancer Diabetes Heart disease Social History Smoking/Tobacco Use Status: Never Smoking risk assessment performed?: Yes Alcohol Intake: former Drug use: Never Substance use type: does not use Details: alcohol: one year Household members: spouse Housing: house Number of Children: 2 number of grandchildren: 3 Pets and animals: Yes Pets and animals: dog(s) What is your relationship status?: Panel score (0-1 are the most socially isolated patients): 1 What type of physical activity do you participate in: none Seatbelt use: always Do you feel safe at home: Yes Do you feel safe in your relationship?: Yes Exam Const General: no acute distress Orientation: alert HENMT Head: normal to inspection Ears: external ears normal General nose exam: external nose normal Mouth: moist mucous membranes Eyes General: appearance normal, both eyes and all related structures Neck Neck: normal visual inspection Resp Effort & Inspection: normal respiratory effort and able to speak in complete sentences Auscultation: no rhonchi and no wheezes Cardio Jugular venous pressure: no JVD Rate: regular rate Heart Sounds: no murmurs Skin General skin exam: no rashes or lesions noted Neuro General: patient alert and patient oriented x3 Extrem General: normal to inspection Course Vital Signs Vital signs: Vital Signs Temperature 36.6 C 03/14/23 02:18 Pulse 82 03/14/23 02:18 Respiratory Rate 18 03/14/23 02:18 Blood Pressure 141/88 H 03/14/23 02:18 Pulse Oximetry 95 03/14/23 02:18 Temperature 36.6 C 03/14/23 02:18 Temperature Source Oral 03/14/23 02:18 Pulse 82 03/14/23 02:18 Respiratory Rate 18 03/14/23 02:18 Respiratory Effort Normal, Non-Labored 03/14/23 02:23 Blood Pressure 141/88 H 03/14/23 02:18 Blood Pressure Position Supine 03/14/23 02:18 Pulse Oximetry 95 03/14/23 02:18 Oxygen Delivery Method Nasal Cannula 03/14/23 02:18 Oxygen Flow Rate 2 03/14/23 02:18 Pain Level 5 03/14/23 02:18 Comment Right foot pain 03/14/23 02:18
[2023-03-14 02:48] LABS: Source Nasal/Nares
[2023-03-14 02:55] LABS: Absolute Basophil Count 0.05 10^3/uL (0.0-0.2); Absolute Lymphocyte Count 1.24 10^3/uL (1.2-3.4); Absolute Neutrophil Count 10.89 10^3/uL (1.2-6.7); Basophils % 0.4; Eosinophils % 2.2; HCT 42.8 % (40.0-50.0); HGB 14.4 g/dL (13.5-17.5); Immature Grans % 0.7; Lymphocytes % 9.1; MCHC 33.6 % (32.0-36.0); MCV 92 fL (80-95); Neutrophils % 79.6; Platelet Count 222 10^3/uL (130-400); RBC 4.64 10^6/uL (4.36-5.78); RDW 12.7 % (11.8-14.1); RDW-SD 42.5 fL; WBC 13.68 10^3/uL (4.4-10.8)
[2023-03-14 02:56] LABS: Absolute Monocyte Count 1.09 10^3/uL (0.1-0.8)
[2023-03-14 02:58] LABS: ALT 21 U/L (16-63); AST 11 U/L (15-37); Albumin 3.7 g/dL (3.4-5.0); Alkaline Phosphatase 121 U/L (46-116); Anion Gap 6.1 mmol/L (3-11); BUN 22 mg/dL (7-18); Bilirubin, Total 0.6 mg/dL (0.2-1.0); CO2 28.9 mmol/L (21.0-32.0); CREATININE 1.4 mg/dL (0.70-1.30); Calcium 8.8 mg/dL (8.5-10.1); Chloride 104 mmol/L (98-107); Glucose 263 mg/dL (74-106); Potassium 4.5 mmol/L (3.5-5.1); Sodium 139 mmol/L (136-145); Total Protein 7.4 g/dL (6.4-8.2)
[2023-03-14 03:39] LABS: COVID-19 PCR Negative (Negative)
[2023-03-14] MEDS: levoFLOXacin 500 MG, levoFLOXacin 250 MG 750 MG PO (03:42)
[2023-03-14 03:56] VITALS: BP 152/79; PULSE 92; RESP 18; TEMP 36.7; O2SAT 94
--- NOTE | 2023-03-14 05:47 | DI.VRAD_ITS ---
PROCEDURE INFORMATION: Exam: XR Right Foot Exam date and time: 03/14/2023 3:05 AM Age: 72 years old Clinical indication: Foot; Right; Patient HX: Pain sp fall TECHNIQUE: Imaging protocol: Radiologic exam of the right foot. Views: 3 or more views. COMPARISON: No relevant prior studies available. FINDINGS: Bones/joints: Subtle transverse lucency projects in medial aspect, base of the 5th metatarsal on frontal view. Mild hammertoe deformities of 1st through 5th digits. Degenerative changes. Soft tissues: Normal. IMPRESSION: Acute fracture can not be excluded in base of the 5th metatarsal. Correlate clinically. Dictated and Authenticated by: Porfirio Metcalf MD. Ordering:DELROY Avila MD
--- NOTE | 2023-03-14 05:50 | DI.VRAD_ITS ---
PROCEDURE INFORMATION: Exam: XR Chest Exam date and time: 03/14/2023 2:57 AM Age: 72 years old Clinical indication: Cough TECHNIQUE: Imaging protocol: Radiologic exam of the chest. Views: 2 views. COMPARISON: CR XR CHEST 2V PA LATERAL 12/28/2022 7:47 AM FINDINGS: Lungs: Suboptimal expansion. No consolidation. Pleural spaces: Unremarkable. No pleural effusion. No pneumothorax. Heart/Mediastinum: Heart top normal in size. Bones/joints: Degenerative changes. IMPRESSION: No acute findings. Dictated and Authenticated by: Porfirio Metcalf MD. Ordering:DELROY Avila MD
== END 2023-03-14 03:57 | disposition home or self-care (01) ==
LOC: ER 03:43
PROVIDERS: Emergency Provider Emergency Medicine; PCP Nurse Practitioner Family
DX: S90.31XA Contusion of right foot, initial encounter (principal); W19.XXXA Unspecified fall, initial encounter; R05.9 Cough, unspecified
CPT/HCPCS: 36415; 80053; 87635; 99284; 71046; 73630; 85025

== ENCOUNTER 2023-04-19 09:09 | Inpatient (IN) | payer MEDICARE, SELFPAY ==
[2023-04-19] VITALS (102 sets, daily range): BP systolic 113–162; BP diastolic 63–95; PULSE 98–115; RESP 13–37; TEMP 37.4–39.2; O2SAT 88–95
--- NOTE | 2023-04-19 09:30 | DI.RAD_ITS ---
Exam(s) XR PORTABLE CHEST AP EXAM: XR PORTABLE CHEST AP CLINICAL HISTORY: weakness TECHNIQUE: 2D digital imaging was performed of the chest. One images were obtained. AP views were obtained. COMPARISON: CR,XR XR CHEST 2V PA LATERAL from 03/14/2023 FINDINGS: MEDIASTINUM: Normal. HEART: Normal. PULMONARY VASCULATURE: Normal. LUNGS: Clear. PLEURAL SPACE: No pleural effusion or pneumothorax. BONE:Within normal limits for the patient's age. Postsurgical changes are seen in the right shoulder . OTHER FINDINGS:Normal. IMPRESSION: No acute pulmonary findings. DATA REPOSITORY: RADIATION DOSE DELIVERED:
--- NOTE | 2023-04-19 09:30 | RT.EKG_ITS ---
APPROVED REPORT Exam: Resting ECG Reason for Exam: weakness Patient Location: E HR:107 bpm ECG Measurements Heart Rate 107 AXIS MO 194 P 54 QRSd 85 QRS -28 QT 336 T 39 QTc 449 Conclusion Sinus tachycardia...rate> 99 Inferior infarct, old...Q >35mS, II III aVF Physician: no stemi, stable, unchanged
--- NOTE | 2023-04-19 10:07 | ED.GENADUL_ITS ---
Discharge Plan Disposition Patient Disposition: Admit to [facility] Condition: Stable Discharge Details Clinical Impression: Sepsis, Acute hypokalemia, Hypomagnesemia Admit Date/Time: 04/19/23 20:33 Admit Provider: Abdifatah Yi Attending Provider: Abdifatah Yi Primary Care Provider: Awilda Rollins ED Provider: Lucia Kaur Discharge Data Discharge Date/Time-TO BE ENTERED AT DEPARTURE: 04/19/23 21:50 Medical Decision Making <IVAN Torres - Last Filed: 04/21/23 08:56> 72-year-old gentleman with multiple comorbidities presents with report of weakness and fever that started this morning. Was on antibiotics recently for pneumonia and admitted to this facility Exam, no significant respiratory distress, alert and oriented x4, appears chronically ill, mildly tachycardic without murmur or rub, moist mucous membranes, lungs clear to auscultation, no abdominal tenderness, no peripheral edema, alert and oriented x4, cranial nerves II through XII intact, no meningismus Demonstrates chest x-ray does not show evidence of acute abnormality, CT chest was ordered for concern for aspiration pneumonia No evidence of acute abnormality aside from gallstones, specifically no evidence of acute cholecystitis per radiologist interpretation and my review We will discuss with surgery, case discussed with Dr. Eaton who recommends ultrasound abdomen Ultrasound abdomen pending at this time, acute leukocytosis 17,000, with left shift Hypomagnesemia 1.2, hypokalemia 2.9, supplemented with 20 mEq of IV potassium and 2 g of IV magnesium Adjusted calcium is 8 with albumin and repeat calcium 8.7 EKG without acute abnormality, specifically no T wave changes or QTc prolongation Remains alert and oriented Case discussed with patient and , DNR/DNI status Is agreeable to medications and supportive care Pending ultrasound abdomen at this time and will likely be admitted to the hospital, meet sepsis criteria with acute leukocytosis, concern for respiratory or intra-abdominal source, and likely admission to the hospital, ceftriaxone and Flagyl administered, 5 mg of Compazine for nausea and 1 episode of vomiting and IV fluid infusion <Lucia Kaur NP - Last Filed: 04/19/23 22:08> 72-year-old gentleman with multiple comorbidities presents with report of weakness and fever that started this morning. Was on antibiotics recently for pneumonia and admitted to this facility Exam, no significant respiratory distress, alert and oriented x4, appears chronically ill, mildly tachycardic without murmur or rub, moist mucous membranes, lungs clear to auscultation, no abdominal tenderness, no peripheral edema, alert and oriented x4, cranial nerves II through XII intact, no meningismus Demonstrates chest x-ray does not show evidence of acute abnormality, CT chest was ordered for concern for aspiration pneumonia No evidence of acute abnormality aside from gallstones, specifically no evidence of acute cholecystitis per radiologist interpretation and my review We will discuss with surgery, case discussed with Dr. Eaton who recommends ultrasound abdomen Ultrasound abdomen pending at this time, acute leukocytosis 17,000, with left shift Hypomagnesemia 1.2, hypokalemia 2.9, supplemented with 20 mEq of IV potassium and 2 g of IV magnesium Adjusted calcium is 8 with albumin and repeat calcium 8.7 EKG without acute abnormality, specifically no T wave changes or QTc prolongation Remains alert and oriented Case discussed with patient and , DNR/DNI status Is agreeable to medications and supportive care Pending ultrasound abdomen at this time and will likely be admitted to the hospital, meet sepsis criteria with acute leukocytosis, concern for respiratory or intra-abdominal source, and likely admission to the hospital, ceftriaxone and Flagyl administered, 5 mg of Compazine for nausea and 1 episode of vomiting and IV fluid infusion Medical Records Medical records narrative: 2027: [place]: Care assumed from provider (Zane Miramontes MD) Please see their initial HPI, PE, and documentation. Discussed patient details and case and pending workup and disposition. Patient is hemodynamically stable, awaiting admission and pending CT result. CTs within normal limits, no acute abnormality noted. Hospitalist paged. 2030: Spoke with Dr. Abdifatah Yi regarding CT results he agrees to accept patient for admission will place bridging holding orders. Patient transported up to floor in stable condition, 15mg Toradol given IV due to patient febrile and tachycardic. This text was generated using [employer] system, please disregard any oddities of phrase or misspellings. Imaging Data Radiologic Study: Imaging: CT Scan Radiologist's impression: COMPARISON: CT ABDOMEN PELVIS W 12/15/2021 2:11 PM FINDINGS: Diaphragm: Small hiatal hernia. Liver: Normal. No mass. Gallbladder and bile ducts: Several small calcified gallstones noted in the gallbladder. No gallbladder wall thickening or pericholecystic inflammation. Pancreas: Normal. No ductal dilation. Spleen: Normal. No splenomegaly. Adrenal glands: Normal. No mass. Kidneys and ureters: Normal. No hydronephrosis. Stomach and bowel: Unremarkable. No obstruction. No mucosal thickening. Appendix: The appendix is visualized and appears normal. Intraperitoneal space: Unremarkable. No free air. No significant fluid collection. Vasculature: Unremarkable. No abdominal aortic aneurysm. Lymph nodes: Unremarkable. No enlarged lymph nodes. Urinary bladder: Unremarkable as visualized. Reproductive: Unremarkable as visualized. 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 Significant degenerative disc changes noted throughout the lower spine. No acute fracture. Soft tissues: Unremarkable. IMPRESSION: No acute abnormality. Stable chronic findings as noted Thank you for allowing us to participate in the care of your patient. Dictated and Authenticated by: Kasi Connell MD HPI <IVAN Torres - Last Filed: 04/21/23 08:56> General Date/Time Provider Initiated Documentation: 04/19/23 09:20 . HPI Narrative: This 72-year-old male with history of esophageal stricture, hiatal hernia, type 2 diabetes presents with report of weakness and fever this morning. Was unable to get out of bed. Denies any falls or injury states his weakness is generalized and denies any focal weakness. Related Data Home Medications Medication Instructions Recorded Confirmed glipizide 10 mg tablet 10 mg PO DAILY 04/20/16 04/19/23 lisinopril 10 mg tablet 10 mg PO DAILY 04/20/16 04/19/23 gabapentin 300 mg capsule 900 mg PO TID 04/17/19 04/19/23 cholecalciferol (vitamin D3) 25 1,000 unit PO DAILY 06/13/19 04/19/23 mcg (1,000 unit) capsule ascorbate calcium (vitamin C) 500 500 mg PO DAILY 08/12/20 04/19/23 mg tablet fluoxetine 40 mg capsule 40 mg PO DAILY 03/24/21 04/19/23 sucralfate 1 gram tablet 1 g PO TID 08/25/21 04/19/23 cyanocobalamin (vitamin B-12) 1,000 mcg PO DAILY 12/21/21 04/19/23 1,000 mcg tablet famotidine 20 mg tablet 20 mg PO DAILY 12/21/21 04/19/23 metformin 500 mg tablet 500 mg PO BID 12/21/21 04/19/23 pravastatin 40 mg tablet 40 mg PO DAILY 12/21/21 04/19/23 docusate sodium 100 mg tablet 200 mg PO DAILY #180 tabs 02/23/22 04/20/23 oxybutynin chloride 5 mg tablet 5 mg PO BID 02/23/22 04/19/23 pantoprazole 40 mg tablet,delayed 40 mg PO BID 03/21/22 04/19/23 release acetaminophen 500 mg capsule 500 mg PO Q6H PRN 04/06/22 04/19/23 fluticasone propionate 50 1 spray intranasal DAILY 08/24/22 04/19/23 mcg/actuation nasal spray,suspension (Flonase Allergy Relief) propranolol 20 mg tablet 20 mg PO BID #180 tabs 10/26/22 04/19/23 carbidopa 25 mg-levodopa 250 mg 1 tab PO TID #360 tabs 01/25/23 04/19/23 tablet methylphenidate HCl 10 mg tablet 10 mg PO .COMPLEX #60 tabs 01/25/23 04/19/23 rivastigmine tartrate 3 mg capsule See Rx Instructions .Route 01/25/23 04/19/23 .COMPLEX #180 caps levofloxacin 750 mg tablet 750 mg PO DAILY #5 tabs 03/14/23 04/19/23 polyethylene glycol 3350 17 gram 17 g PO DAILY 04/20/23 04/20/23 oral powder packet Previous Rx's Medication Instructions Recorded docusate sodium 100 mg tablet 200 mg PO DAILY #180 tabs 02/23/22 propranolol 20 mg tablet 20 mg PO BID #180 tabs 10/26/22 carbidopa 25 mg-levodopa 250 mg 1 tab PO TID #360 tabs 01/25/23 tablet methylphenidate HCl 10 mg tablet 10 mg PO .COMPLEX #60 tabs 01/25/23 rivastigmine tartrate 3 mg capsule See Rx Instructions .Route 01/25/23 .COMPLEX #180 caps levofloxacin 750 mg tablet 750 mg PO DAILY #5 tabs 03/14/23 Allergies Allergy/AdvReac Type Severity Reaction Status Date / Time bupropion HCl AdvReac Intermediate shakey/metal Verified 04/19/23 10:56 [From Wellbutrin] taste/off balance Penicillins AdvReac Intermediate Skin Rash Verified 04/19/23 10:56 foam tape Allergy Intermediate Skin Rash Uncoded 04/19/23 10:56 General Stated Complaint: Fever LORA: 3 PFSH <IVAN Torres - Last Filed: 04/21/23 08:56> All Active Problems (Updated 04/20/23 @ 01:48 by Abdifatah Yi) Discharge planning issues (Acute) DVT prophylaxis (Acute) Parkinson's disease dementia (Acute) Sepsis (Acute) Acute hypokalemia (Acute) Hypomagnesemia (Acute) Polypharmacy (Acute) Advanced care planning/counseling discussion (Acute) Dependence on wheelchair (Acute) Closed fracture of greater trochanter of left femur (Acute 03/19/22) Pain, acute due to trauma (Acute) Ambulatory dysfunction (Acute) Periprosthetic hip fracture (Acute) Right kidney stone (Acute) Nocturia (Acute) Frequent falls (Acute) Progressive supranuclear palsy (Chronic) Anxiety (Chronic) Diabetic neuropathy (Acute) Urinary incontinence (Acute) Constipation (Acute) Memory loss (Acute) Gait abnormality (Acute) H/O esophagogastroduodenoscopy (Chronic ~04/29/19) Fever (Acute) Confusion (Acute) Right hip pain (Acute) GERD (gastroesophageal reflux disease) (Chronic) COPD (chronic obstructive pulmonary disease) (Chronic) S/P total knee replacement (Acute) S/P Arcadio fundoplication (without gastrostomy tube) procedure (Acute) x2 at [facility] Depression (Chronic) Obesity (Chronic) Hyperlipidemia (Acute) Insomnia (Acute) Diverticulosis (Acute) Sleep apnea (Acute) Osteoarthritis (Chronic) History of colonic polyps (Acute) History of kidney stones (Acute) History of cardiac cath (Chronic) Shoulder joint pain (Acute) Cerumen impaction (Acute) History of total hip arthroplasty (Acute) Incisional hernia (Acute) Inguinal hernia (Acute) Chronic low back pain (Acute) Unsteady gait (Acute) Difficulty swallowing (Acute) Behavioral and psychological symptoms of dementia (Acute) Diabetes mellitus (Chronic) Medical History Esophageal stricture GERD (gastroesophageal reflux disease) Hiatal hernia Palliative care patient Type 2 diabetes mellitus Surgical History History of colonoscopy History of lumbar laminectomy for spinal cord decompression History of shoulder surgery Total replacement of hip Family History Mother Dementia COPD (chronic obstructive pulmonary disease) Other Cancer Diabetes Heart disease Social History Smoking/Tobacco Use Status: Never Smoking risk assessment performed?: Yes Alcohol Intake: former Drug use: Never Substance use type: does not use Household members: spouse Housing: house Number of Children: 2 number of grandchildren: 3 Pets and animals: Yes Pets and animals: dog(s) What is your relationship status?: Panel score (0-1 are the most socially isolated patients): 1 What type of physical activity do you participate in: none Seatbelt use: always Do you feel safe at home: Yes Do you feel safe in your relationship?: Yes Course <IVAN Torres - Last Filed: 04/21/23 08:56> Vital Signs Vital signs: Vital Signs Temperature 37.7 C H 04/19/23 09:35 Pulse 109 H 04/19/23 09:35 Respiratory Rate 20 04/19/23 09:35 Blood Pressure 142/82 H 04/19/23 09:35 Pulse Oximetry 92 04/19/23 09:35 Temperature 39.2 C H 04/19/23 09:47 Temperature Source Tympanic 04/19/23 09:47 Pulse 109 H 04/19/23 09:35 Respiratory Rate 20 04/19/23 09:35 Blood Pressure 142/82 H 04/19/23 09:35 Blood Pressure Position Supine 04/19/23 09:35 Pulse Oximetry 92 04/19/23 09:35 Oxygen Delivery Method Room Air 04/19/23 09:35 Oxygen Flow Rate 0 04/19/23 09:35 Pain Level 0 04/19/23 09:35 Lab/Test Results Lab/Test Results: 04/19/23 09:41 Blood Blood Culture - Pending 04/19/23 09:41 Blood Blood Culture - Pending Critical Care Time <IVAN Torres - Last Filed: 04/21/23 08:56> Critical Care Time Attestation: Approximately 45 minutes of critical care time secondary to management of sepsis without shock, IV antibiotics, telemetry monitoring, hypokalemia with IV potassium administration, hypomagnesemia with IV magnesium administration, IV fluid resuscitation, IV antibiotics, diagnostic imaging interpretation and review, diagnostic lab interpretation and review Sign Out <IVAN Torres - Last Filed: 04/21/23 08:56> Sign Out Data: Sign Out Comment: pending us interpretation and likely admission for sepsis Last updated by Rachel Lopez PA at 04/19/23 16:40 Sign Out Comment: follow-up CT abd pelvis to assess for acute surgical process and determine final disposition. Last updated by Zane Miramontes MD at 04/19/23 19:51
[2023-04-19 10:10] LABS: Absolute Basophil Count 0.04 10^3/uL (0.0-0.2); Absolute Eosinophil Count 0.16 10^3/uL (0.0-0.7); Absolute Lymphocyte Count 0.97 10^3/uL (1.2-3.4); Absolute Monocyte Count 1.06 10^3/uL (0.1-0.8); Absolute Neutrophil Count 15.33 10^3/uL (1.2-6.7); Basophils % 0.2; Eosinophils % 0.9; HCT 42.6 % (40.0-50.0); HGB 14.7 g/dL (13.5-17.5); Immature Grans % 0.6; Lymphocytes % 5.5; MCH 31.1 pg (27.0-33.0); MCHC 34.5 % (32.0-36.0); MCV 90 fL (80-95); MPV 9.2 fL (8.0-11.0); Neutrophils % 86.8; Platelet Count 249 10^3/uL (130-400); RBC 4.72 10^6/uL (4.36-5.78); RDW 12.2 % (11.8-14.1); RDW-SD 40.2 fL; WBC 17.66 10^3/uL (4.4-10.8)
[2023-04-19 10:46] LABS: ALT 19 U/L (16-63); AST 9 U/L (15-37); Albumin 2.6 g/dL (3.4-5.0); Alkaline Phosphatase 90 U/L (46-116); Anion Gap 9.2 mmol/L (3-11); BUN 15 mg/dL (7-18); Bilirubin, Total 0.8 mg/dL (0.2-1.0); CO2 21.8 mmol/L (21.0-32.0); CREATININE 0.9 mg/dL (0.70-1.30); Calcium 6.5 mg/dL (8.5-10.1); Chloride 109 mmol/L (98-107); Estimated GFR 90.74 (mL/min/1.73m2); Glucose 218 mg/dL (74-106); Lipase 14 U/L (16-77); Sodium 140 mmol/L (136-145); Total Protein 5.4 g/dL (6.4-8.2)
[2023-04-19 10:47] LABS: Potassium 2.9 mmol/L (3.5-5.1)
[2023-04-19 10:48] LABS: COVID-19 PCR Negative (Negative); Influenza A PCR Negative (Negative); Influenza B PCR Negative (Negative); RSV PCR Negative (Negative)
[2023-04-19 10:53] LABS: Source Nasopharynx
[2023-04-19 10:58] LABS: Magnesium 1.2 mg/dL (1.8-2.4)
[2023-04-19 11:13] LABS: Lactate 2.1 mmol/L (0.6-1.4)
[2023-04-19] MEDS: cefTRIAXone 2 GM/50 ML BAG IVPB (11:30)
--- NOTE | 2023-04-19 11:30 | DI.CT_ITS ---
Exam(s) CT CHEST PE CTA EXAM: CT CHEST PE CTA CLINICAL HISTORY: pneumonia, infiltrate vs pe. TECHNIQUE: Imaging Protocol: Axial CT angiography was performed with multi-slice acquisition and mu lti-planar and/or 3D reconstructions. CONTRAST MATERIAL: Intravenous: Omnipaque 350 contrast volume:100 mL COMPARISON: CT CT ABDOMEN PELVIS W from 12/15/2021 FINDINGS: The examination is limited due to patient motion artifact. Tracheobronchial tree: Patent where visualized. Pulmonary parenchyma: No consolidation or dominant measurable mass. No architectural distortion. Pulmonary Arteries: Due to the motion artifact, subsegmental pulmonary arteries are suboptimally visu alized. The no central or segmental pulmonary emboli are identified. Mediastinum and Melvina: No dominant adenopathy or fluid collection. The esophagus is unremarkable. Th ere is a moderate size hiatal hernia. Visualized thyroid gland: Unremarkable. Pleura: No effusion or pneumothorax. Heart: The heart is not dilated. Mild coronary artery calcification. No pericardial effusion. Aorta: Thoracic aorta non-dilated. No evidence of dissection. Atherosclerosis is present. Upper abdomen: Cholelithiasis. Soft tissues: Unremarkable. Bones: Within normal limits for the patient's age.Old healed left rib fractures identified. IMPRESSION: 1. No evidence of pulmonary embolism, thoracic aortic dissection or aneurysm. 2. Cholelithiasis. 3. Findings were discussed with Rachel Lopez at 1:43 p.m. on 04/19/2023. RADIATION DOSE DELIVERED: 544.59mGy.cm Total DLP DATA REPOSITORY: All CT scans at this facility are submitted to the National Radiology Data Registry (NRDR) Dose Index Registry (DIR) with the [employer] (ACR). RADIATION OPTIMIZATION: All CT scans at this facility use at least one of these dose optimization te chniques: automated exposure control; mA and/or kV adjustment per patient size (includes targeted exa ms where dose is matched to clinical indication); or iterative reconstruction.
[2023-04-19] MEDS: MAGNESIUM SULFATE 2 GM/50 ML BAG IVPB (11:34)
[2023-04-19] MEDS: POTASSIUM CHLORIDE 20 MEQ/100 ML BAG 50 MEQ IVPB (11:35)
[2023-04-19 11:39] LABS: PHOSPHORUS 2.4 mg/dL (2.6-4.7)
[2023-04-19 11:51] LABS: Procalcitonin < 0.1 ng/mL
[2023-04-19 12:16] LABS: Calcium 8.7 mg/dL (8.5-10.1)
[2023-04-19] MEDS: Omnipaque 350 MG/ML 100 ML BTL IJ ×2 (12:53→19:31)
[2023-04-19] MEDS: Normal Saline - Diluent 50 ML VIAL IJ ×2 (12:53→19:32)
[2023-04-19] MEDS: Normal Saline Flush 10 ML SYR IVP (12:54)
[2023-04-19] MEDS: Prochlorperazine 10 MG/2 ML VIAL 5 MG IVP (13:25)
[2023-04-19] MEDS: Normal Saline 500 ML 100 ML IV (13:25)
[2023-04-19] MEDS: metroNIDAZOLE 500 MG/100 ML BAG 100 MG IVPB (13:25)
--- NOTE | 2023-04-19 14:00 | DI.US_ITS ---
Exam(s) US ABDOMEN LIMITED EXAM: US ABDOMEN LIMITED CLINICAL HISTORY: gallstones, leukocytosis TECHNIQUE: Ultrasound abdomen performed using standard protocol. COMPARISON: CT CT ABDOMEN PELVIS W from 12/15/[address] CHEST PE CTA from 04/19/2023 FINDINGS: PANCREAS: Normal where visualized. LIVER: There is increased echogenicity of the liver consistent with fatty infiltration. Hepatopedal flow in the Portal Vein. The liver measures in 19.4 cm length. GALLBLADDER:Gallstones are present. No evidence of wall thickening. No pericholecystic fluid identif ied. BILIARY SYSTEM: The gallbladder was not visualized on this examination. No definite intrahepatic brodie iary ductal dilatation is present. MCKINNON'S SIGN: Negative. RIGHT KIDNEY: Kidney is normal in size. No evidence of renal calculi. No evidence of hydronephrosis. No renal mass or cyst identified. ASCITES: None seen. IMPRESSION: 1. Hepatomegaly and hepatic steatosis. 2. Cholelithiasis. No definite biliary ductal dilatation. DATA REPOSITORY:
--- NOTE | 2023-04-19 17:14 | DI.VRAD_ITS ---
PROCEDURE INFORMATION: Exam: US Abdomen, Limited; Right Upper Quadrant Exam date and time: 04/19/2023 4:06 PM Age: 72 years old Clinical indication: Abnormal findings; Abnormal radiologic finding of the abdomen; Radiologic exam and body structure: Cholelithiasis seen on CT TECHNIQUE: Imaging protocol: Real time ultrasound of the abdomen with image documentation. Limited exam focused on the right upper quadrant. COMPARISON: 1. CT ABDOMEN PELVIS W 12/15/2021 2:[address] CHEST PE CTA 04/19/2023 12:54 PM FINDINGS: Liver: The liver is mildly enlarged. Liver length is 19.4 cm. There is fatty infiltration of the liver. Gallbladder: Multiple gallstones. No wall thickening. Negative sonographic Wilson's sign per the technologist. Biliary ducts: Limited visualization of the common bile duct. Pancreas: Limited visualization of the pancreas. Right kidney: 0.3 cm nonobstructing right renal calculus. No hydronephrosis. Portal venous: Antegrade blood flow is seen in the main portal vein. IMPRESSION: 1. Cholelithiasis without evidence of acute cholecystitis. 2. Hepatomegaly with fatty infiltration. 3. Small nonobstructing right renal calculus. No hydronephrosis. Dictated and Authenticated by: Juanito Underwood MD. Ordering:EMIL Ramos MD
[2023-04-19 17:28] LABS: Lactate 1.4 mmol/L (0.6-1.4)
[2023-04-19 17:47] LABS: Bilirubin Negative (Negative); Blood Small (Negative); Clarity Clear (Clear); Glucose 100 mg/dL (Negative); Ketones 15 mg/dL (Negative); Leukocyte Esterase Negative (Negative); Nitrite Negative (Negative); Specific Gravity 1.015 (1.005-1.025)
[2023-04-19 17:58] LABS: WBC 0-2 HPF (0-5)
[2023-04-19 17:59] LABS: Bacteria Rare HPF (Negative); C & S Indicated? No; Casts Negative LPF (Negative); Crystals Negative HPF (Negative); Epithelial Cells Rare HPF (Negative); Mucus Negative (Negative)
--- NOTE | 2023-04-19 18:45 | DI.CT_ITS ---
Exam(s) CT ABDOMEN PELVIS W EXAM: CT ABDOMEN PELVIS W CLINICAL HISTORY: nausea, vomiting, fever TECHNIQUE: Imaging Protocol: Axial computed tomography images with coronal and sagittal reformatted images were created and reviewed CONTRAST MATERIAL: Intravenous: Omnipaque 350 Contrast volume:100 mL Oral: No COMPARISON: CT CT ABDOMEN PELVIS W from 12/15/[address] CHEST PE CTA from 04/19/2023 FINDINGS: ABDOMEN: Lung Bases: Coronary artery calcifications are present. There is a small hiatal hernia. Liver: There is decreased attenuation of the liver consistent with fatty infiltration. No measurable mass. Portal, Superior Mesenteric, and Splenic Veins: Unremarkable. Gallbladder and Biliary Tract: Cholelithiasis. No biliary ductal dilatation. Pancreas: Normal density, no abnormal calcifications or inflammatory process. Spleen: Normal. Adrenals: No masses seen. Kidneys: Normal size, contour and axis. No radiodense stones or obstructive uropathy. There is a stab le cyst in the left kidney. No follow-up is recommended. Abdominal Aorta: Abdominal portion non-dilated. Atherosclerosis is present. Bowel: No obstruction or bowel wall thickening. No evidence of appendicitis. Peritoneal Cavity: No ascites, collection or mesenteric inflammatory response. No free air. Lymph Nodes: Within normal limits. Bones: Within normal limits for the patient's age. There are bilateral total hip replacements. Soft Tissues: There is a small fat containing left inguinal hernia. There is a tiny fat containing l eft paracentral anterior abdominal wall hernia. PELVIS: Bladder: Urinary bladder is incompletely imaged secondary to decreased distension an artifact from th e patient's hip prostheses. Reproductive Organs: Unremarkable as visualized. Lymph Nodes: Within normal limits. Bones: Within normal limits for the patient's age. IMPRESSION: 1. No acute abdominal or pelvic process. 2. Cholelithiasis without CT evidence to suggest acute cholecystitis. RADIATION DOSE DELIVERED: 1,658.82mGy.cm Total DLP DATA REPOSITORY: All CT scans at this facility are submitted to the National Radiology Data Registry (NRDR) Dose Index Registry (DIR) with the [employer] (ACR). RADIATION OPTIMIZATION: All CT scans at this facility use at least one of these dose optimization te chniques: automated exposure control; mA and/or kV adjustment per patient size (includes targeted exa ms where dose is matched to clinical indication); or iterative reconstruction.
--- NOTE | 2023-04-19 18:48 | ED.PROG_ITS ---
Date of service: 04/19/23 Time of Service: 18:48 Medical Decision Making 1851 -- Care was signed out by IVAN Bahena, please see her note regarding initial ED presentation and course. Initial concern was potentially for aspiration pneumonia although CT chest was negative for pneumonia. Plan at signout was to follow-up on ultrasound of the right upper quadrant and determine disposition. Chest x-ray was interpreted by radiology:No acute pulmonary findings. CT of the chest was interpreted by radiology:1. No evidence of pulmonary embolism, thoracic aortic dissection or aneurysm.? 2. Cholelithiasis. 3. Findings were discussed with Rachel Lopez at 1:43 p.m. on 04/19/2023. Ultrasound of the right upper quadrant was interpreted by radiology: IMPRESSION: 1. ? Cholelithiasis without evidence of acute cholecystitis. 2. ? Hepatomegaly with fatty infiltration. 3. ? Small nonobstructing right renal calculus. No hydronephrosis. Initial labs reviewed, leukocytosis and lactic acidosis noted. Patient also with hypokalemia and hypomagnesemia. Patient has received IV magnesium and IV potassium replacement. He has received early broad-spectrum antibiotic coverage with ceftriaxone and Flagyl. Patient received crystalloid 500 mL bolus. Repeat lactate 1.4. Catheterized urine specimen was obtained and urinalysis reveals 5-10 RBCs, 0-2 WBCs. Urinalysis is not consistent with UTI. I performed full body skin exam and no concerning lesions/rash. No clear infectious source identified. Blood cultures are pending. Plan to obtain CT of the abdomen pelvis with IV contrast. I called and spoke with Dr. Yi, long term care administrator hospitalist, discussed ED presentation and course, he will admit patient if no surgical condition identified. He recommends sending tick panel and starting doxycycline. Lab Data Lab results reviewed: Yes I reviewed the patient's lab results. Labs: 04/19/23 10:55 Blood Blood Culture - Pending 04/19/23 10:55 Blood Blood Culture - Pending Laboratory Tests Range/Units 04/19/23 04/19/23 04/19/23 09:20 09:20 09:20 WBC (4.4-10.8) 10^3/uL 17.66 H RBC (4.36-5.78) 10^6/uL 4.72 Hgb (13.5-17.5) g/dL 14.7 Hct (40.0-50.0) % 42.6 MCV (80-95) fL 90 MCH (27.0-33.0) pg 31.1 MCHC (32.0-36.0) % 34.5 RDW (11.8-14.1) % 12.2 Plt Count (130-400) 10^3/uL 249 MPV (8.0-11.0) fL 9.2 Immature Gran % 0.6 Neutrophils % 86.8 Lymphocytes % 5.5 Monocytes % 6.0 Eosinophils % 0.9 Basophils % 0.2 Nucleated RBC % (0.0-0.3) % 0.0 Absolute Neutrophils (1.2-6.7) 10^3/uL 15.33 H Absolute Lymphocytes (1.2-3.4) 10^3/uL 0.97 L Absolute Monocytes (0.1-0.8) 10^3/uL 1.06 H Absolute Eosinophils (0.0-0.7) 10^3/uL 0.16 Absolute Basophils (0.0-0.2) 10^3/uL 0.04 VBG Lactate (0.6-1.4) mmol/L Sodium (136-145) mmol/L 140 Potassium (3.5-5.1) mmol/L 2.9 L Chloride (98-107) mmol/L 109 H Carbon Dioxide (21.0-32.0) mmol/L 21.8 Anion Gap (3-11) mmol/L 9.2 BUN (7-18) mg/dL 15 Creatinine (0.70-1.30) mg/dL 0.9 Est GFR (CKD-EPI 2020) (mL/min/1.73m2) 90.74 Glucose (74-106) mg/dL 218 H Calcium (8.5-10.1) mg/dL 6.5 L Phosphorus (2.6-4.7) mg/dL Magnesium (1.8-2.4) mg/dL 1.2 L Total Bilirubin (0.2-1.0) mg/dL 0.8 AST (15-37) U/L 9 L ALT (16-63) U/L 19 Alkaline Phosphatase (46-116) U/L 90 Total Protein (6.4-8.2) g/dL 5.4 L Albumin (3.4-5.0) g/dL 2.6 L Lipase (16-77) U/L 14 L Procalcitonin ng/mL Urine Color (Yellow) Urine Clarity (Clear) Urine pH (5-8) Ur Specific [place] (1.005-1.025) Urine Protein (Negative) mg/dL Urine Ketones (Negative) mg/dL Urine Blood (Negative) Urine Nitrite (Negative) Urine Bilirubin (Negative) Urine Urobilinogen (Up to 0.2) mg/dL Ur Leukocyte Esterase (Negative) Urine RBC (0-2) HPF Urine WBC (0-5) HPF Ur Epithelial Cells (Negative) HPF Urine Crystals (Negative) HPF Urine Bacteria (Negative) HPF Urine Casts (Negative) LPF Urine Mucus (Negative) Ur Culture Indicated? Urine Glucose (Negative) mg/dL COVID-19 Source SARS-CoV-2 (PCR) (Negative) Influenza Type A (PCR) (Negative) Influenza Type B (PCR) (Negative) RSV (PCR) (Negative) Range/Units 04/19/23 04/19/23 04/19/23 10:01 10:55 10:55 WBC (4.4-10.8) 10^3/uL RBC (4.36-5.78) 10^6/uL Hgb (13.5-17.5) g/dL Hct (40.0-50.0) % MCV (80-95) fL MCH (27.0-33.0) pg MCHC (32.0-36.0) % RDW (11.8-14.1) % Plt Count (130-400) 10^3/uL MPV (8.0-11.0) fL Immature Gran % Neutrophils % Lymphocytes % Monocytes % Eosinophils % Basophils % Nucleated RBC % (0.0-0.3) % Absolute Neutrophils (1.2-6.7) 10^3/uL Absolute Lymphocytes (1.2-3.4) 10^3/uL Absolute Monocytes (0.1-0.8) 10^3/uL Absolute Eosinophils (0.0-0.7) 10^3/uL Absolute Basophils (0.0-0.2) 10^3/uL VBG Lactate (0.6-1.4) mmol/L 2.1 H Sodium (136-145) mmol/L Potassium (3.5-5.1) mmol/L Chloride (98-107) mmol/L Carbon Dioxide (21.0-32.0) mmol/L Anion Gap (3-11) mmol/L BUN (7-18) mg/dL Creatinine (0.70-1.30) mg/dL Est GFR (CKD-EPI 2020) (mL/min/1.73m2) Glucose (74-106) mg/dL Calcium (8.5-10.1) mg/dL Phosphorus (2.6-4.7) mg/dL 2.4 L Magnesium (1.8-2.4) mg/dL Total Bilirubin (0.2-1.0) mg/dL AST (15-37) U/L ALT (16-63) U/L Alkaline Phosphatase (46-116) U/L Total Protein (6.4-8.2) g/dL Albumin (3.4-5.0) g/dL Lipase (16-77) U/L Procalcitonin ng/mL < 0.1 Urine Color (Yellow) Urine Clarity (Clear) Urine pH (5-8) Ur Specific [place] (1.005-1.025) Urine Protein (Negative) mg/dL Urine Ketones (Negative) mg/dL Urine Blood (Negative) Urine Nitrite (Negative) Urine Bilirubin (Negative) Urine Urobilinogen (Up to 0.2) mg/dL Ur Leukocyte Esterase (Negative) Urine RBC (0-2) HPF Urine WBC (0-5) HPF Ur Epithelial Cells (Negative) HPF Urine Crystals (Negative) HPF Urine Bacteria (Negative) HPF Urine Casts (Negative) LPF Urine Mucus (Negative) Ur Culture Indicated? Urine Glucose (Negative) mg/dL COVID-19 Source Nasopharynx SARS-CoV-2 (PCR) (Negative) Negative Influenza Type A (PCR) (Negative) Negative Influenza Type B (PCR) (Negative) Negative RSV (PCR) (Negative) Negative Range/Units 04/19/23 04/19/23 04/19/23 11:56 17:25 17:40 WBC (4.4-10.8) 10^3/uL RBC (4.36-5.78) 10^6/uL Hgb (13.5-17.5) g/dL Hct (40.0-50.0) % MCV (80-95) fL MCH (27.0-33.0) pg MCHC (32.0-36.0) % RDW (11.8-14.1) % Plt Count (130-400) 10^3/uL MPV (8.0-11.0) fL Immature Gran % Neutrophils % Lymphocytes % Monocytes % Eosinophils % Basophils % Nucleated RBC % (0.0-0.3) % Absolute Neutrophils (1.2-6.7) 10^3/uL Absolute Lymphocytes (1.2-3.4) 10^3/uL Absolute Monocytes (0.1-0.8) 10^3/uL Absolute Eosinophils (0.0-0.7) 10^3/uL Absolute Basophils (0.0-0.2) 10^3/uL VBG Lactate (0.6-1.4) mmol/L 1.4 Sodium (136-145) mmol/L Potassium (3.5-5.1) mmol/L Chloride (98-107) mmol/L Carbon Dioxide (21.0-32.0) mmol/L Anion Gap (3-11) mmol/L BUN (7-18) mg/dL Creatinine (0.70-1.30) mg/dL Est GFR (CKD-EPI 2020) (mL/min/1.73m2) Glucose (74-106) mg/dL Calcium (8.5-10.1) mg/dL 8.7 Phosphorus (2.6-4.7) mg/dL Magnesium (1.8-2.4) mg/dL Total Bilirubin (0.2-1.0) mg/dL AST (15-37) U/L ALT (16-63) U/L Alkaline Phosphatase (46-116) U/L Total Protein (6.4-8.2) g/dL Albumin (3.4-5.0) g/dL Lipase (16-77) U/L Procalcitonin ng/mL Urine Color (Yellow) Yellow Urine Clarity (Clear) Clear Urine pH (5-8) 7.0 Ur Specific [place] (1.005-1.025) 1.015 Urine Protein (Negative) mg/dL 30 H Urine Ketones (Negative) mg/dL 15 H Urine Blood (Negative) Small H Urine Nitrite (Negative) Negative Urine Bilirubin (Negative) Negative Urine Urobilinogen (Up to 0.2) mg/dL 4.0 H Ur Leukocyte Esterase (Negative) Negative Urine RBC (0-2) HPF 5-10 H Urine WBC (0-5) HPF 0-2 Ur Epithelial Cells (Negative) HPF Rare Urine Crystals (Negative) HPF Negative Urine Bacteria (Negative) HPF Rare Urine Casts (Negative) LPF Negative Urine Mucus (Negative) Negative Ur Culture Indicated? No Urine Glucose (Negative) mg/dL 100 H COVID-19 Source SARS-CoV-2 (PCR) (Negative) Influenza Type A (PCR) (Negative) Influenza Type B (PCR) (Negative) RSV (PCR) (Negative) Sign Out Sign Out Data: Sign Out Comment: pending us interpretation and likely admission for sepsis Last updated by Rachel Lopez PA at 04/19/23 16:40 Discharge Plan Discharge Details Chief Complaint: Fever Clinical Impression: Sepsis, Acute hypokalemia, Hypomagnesemia Primary Care Provider: Awilda Rollins ED Provider: Zane Miramontes Home Meds and New Rx's Prescriptions: No Action cholecalciferol (vitamin D3) 1,000 unit capsule 1,000 unit PO DAILY Patient Comments: no longer taking ascorbate calcium (vitamin C) 500 mg tablet 500 mg PO DAILY Patient Comments: no longer taking sucralfate 1 gram tablet 1 g PO TID docusate sodium 100 mg tablet 200 mg PO DAILY Qty: 180 0RF fluticasone propionate [Flonase Allergy Relief] 50 mcg/actuation spray,suspension 1 spray intranasal DAILY Rx Instructions: administer into each nostril propranolol 20 mg tablet 20 mg PO BID Qty: 180 3RF gabapentin 300 mg capsule 900 mg PO TID fluoxetine 40 mg capsule 40 mg PO DAILY acetaminophen 500 mg capsule 500 mg PO Q6H PRN methylphenidate HCl 10 mg tablet 10 mg PO .COMPLEX MDD 20mg Qty: 60 0RF Rx Instructions: 10 mg orally once daily in am; ok to take 2nd at noon if still overly fatigued; carbidopa-levodopa 25-250 mg tablet 1 tab PO TID Qty: 360 3RF Rx Instructions: WITH MEALS (0800,1200,1700) rivastigmine tartrate 3 mg capsule See Rx Instructions .ROUTE .COMPLEX Qty: 180 3RF Dose Instruction: Take 1 capsule by mouth twice daily Rx Instructions: Take 1 capsule by mouth twice daily metformin 500 mg tablet 500 mg PO BID famotidine 20 mg tablet 20 mg PO DAILY cyanocobalamin (vitamin B-12) 1,000 mcg tablet 1,000 mcg PO DAILY Patient Comments: no longer taking pravastatin 40 mg tablet 40 mg PO DAILY Patient Comments: no longer taking oxybutynin chloride 5 mg tablet 5 mg PO BID glipizide 10 MG tablet 10 mg PO DAILY lisinopril 10 MG tablet 10 mg PO DAILY Patient Comments: no longer taking pantoprazole 40 mg tablet,delayed release (DR/EC) 40 mg PO BID Patient Comments: TAKE ONE TABLET BY MOUTH TWICE A DAY levofloxacin 750 mg tablet 750 mg PO DAILY Qty: 5 0RF Patient Comments: no longer taking
[2023-04-19] MEDS: Ondansetron 4 MG/2 ML VIAL IVP (19:15)
[2023-04-19] MEDS: DOXYCYCLINE 100 MG in Normal Saline 100 ML IVPB (19:56)
[2023-04-19 20:03] LABS: Anion Gap 5.5 mmol/L (3-11); BUN 16 mg/dL (7-18); CO2 27.5 mmol/L (21.0-32.0); CREATININE 1.3 mg/dL (0.70-1.30); Chloride 99 mmol/L (98-107); Estimated GFR 58.37 (mL/min/1.73m2); Glucose 232 mg/dL (74-106); Potassium 3.8 mmol/L (3.5-5.1); Sodium 132 mmol/L (136-145)
--- NOTE | 2023-04-19 20:24 | DI.VRAD_ITS ---
PROCEDURE INFORMATION: Exam: CT Abdomen And Pelvis With Contrast Exam date and time: 04/19/2023 7:33 PM Age: 72 years old Clinical indication: Other: Nausea, vomiting and fever TECHNIQUE: Imaging protocol: Computed tomography of the abdomen and pelvis with contrast. Contrast material: 350; Contrast volume: 100 ml; Contrast route: INTRAVENOUS (IV); COMPARISON: CT ABDOMEN PELVIS W 12/15/2021 2:11 PM FINDINGS: Diaphragm: Small hiatal hernia. Liver: Normal. No mass. Gallbladder and bile ducts: Several small calcified gallstones noted in the gallbladder. No gallbladder wall thickening or pericholecystic inflammation. Pancreas: Normal. No ductal dilation. Spleen: Normal. No splenomegaly. Adrenal glands: Normal. No mass. Kidneys and ureters: Normal. No hydronephrosis. Stomach and bowel: Unremarkable. No obstruction. No mucosal thickening. Appendix: The appendix is visualized and appears normal. Intraperitoneal space: Unremarkable. No free air. No significant fluid collection. Vasculature: Unremarkable. No abdominal aortic aneurysm. Lymph nodes: Unremarkable. No enlarged lymph nodes. Urinary bladder: Unremarkable as visualized. Reproductive: Unremarkable as visualized. 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 Significant degenerative disc changes noted throughout the lower spine. No acute fracture. Soft tissues: Unremarkable. IMPRESSION: No acute abnormality. Stable chronic findings as noted Dictated and Authenticated by: Kasi Connell MD. Ordering:ABBIE Degroot MD
[2023-04-19] MEDS: Ketorolac 15 MG/ML VIAL IVP (21:12)
[2023-04-19 22:33] LABS: Creatine Kinase 97 U/L (39-308)
--- NOTE | 2023-04-19 23:36 | W.PM.HP.N ---
Date of service: 04/19/23 Time of Service: 23:36 Assessment and Plan Assessment and plan (1) Sepsis: Status: Acute Assessment and plan: His fever, elevated WBC, and lactate all raise concern for sepsis. Unfortunately despite CT C/A/P we have not seen a source for his infection. Viral testing for flu/COVID negative. Given the season and his chronic cognitive limitations, this could also be Lyme Related. Started on ceftriaxone and doxycycline. I will add vanco. Continues these until blood culture returns or another source reveals itself (2) Acute hypokalemia: Status: Acute Assessment and plan: Replaced in ED, follow and given additional prn (3) Hypomagnesemia: Status: Acute Assessment and plan: Replaced in ED, follow and given additional prn (4) Type 2 diabetes mellitus: Assessment and plan: Sugars a bit high. Holding metformin with contrast studies. Will give basal/bolus insulin and hold the glipizide as well. (5) COPD (chronic obstructive pulmonary disease): Status: Chronic Assessment and plan: stable, not active currenty (6) Parkinson's disease dementia: Status: Acute Assessment and plan: Appears near his baseline per report, but he is at risk for acutely worsening. Continue outpatient medicaitons including rivastigine. Hold the oxybutynin as it may be making cognition wook. (7) DVT prophylaxis: Status: Acute Assessment and plan: LMWH (8) Discharge planning issues: Status: Acute Assessment and plan: stable on the medical floor. He is DNR status History of Present Illness History of Present Illness Chief Complaint: fever Narrative: 72 yo M who is wheelchair bound with Parkinson Dementia who presented with general weakness and fever that started on the morning of admission. He otherwise feels okay. He has no focal pain, denies new cough or dyspnea. No urinary symptoms, no skin changes or rash. He did not notice a recent tick bite. His history is limited by his mental status with a limited memory. Of note, he was seen in the ED 03/14/23 after a fall with a right foot injury. At that time he had a WBC of 13 and cough noted on ROS. CXR was negative but given cough and WBC he was given a 5 day course of levofloxacin. Review of Systems Narrative: limited by mental status Constitutional Constitutional: Reports fever(s), Reports poor appetite, Denies weight gain and Denies weight loss Eyes Eyes: Denies irritation, Denies loss of vision and Denies eye pain ENT Ears, Nose, Mouth, and Throat: Denies dizziness, Denies nasal congestion and Denies sinus pain Cardiovascular Cardiovascular: Denies chest pain, Denies palpitations and Denies dyspnea Respiratory Respiratory: Denies dyspnea Gastrointestinal Gastrointestinal: Denies melena, Denies hematochezia, Denies diarrhea, Reports nausea and Denies vomiting Genitourinary Genitourinary: Denies hematuria, Denies difficulty urinating and Denies dysuria Musculoskeletal Musculoskeletal: Denies arthralgias and Denies joint swelling Integumentary/Breasts Skin/Breast: Denies rash and Denies skin ulcer Neurologic Neurologic: Denies dizziness, Denies localized weakness, Denies loss of vision, Reports memory loss and Denies tremor(s) Psychiatric Psychiatric: Reports memory loss and Denies mood swings Endocrine Endocrine: Denies palpitations Hematologic/Lymphatic Hematologic/Lymphatic: Denies easy bleeding PFSH All Active Problems (Updated 04/20/23 @ 01:48 by bAdifatah Yi) Discharge planning issues (Acute) DVT prophylaxis (Acute) Parkinson's disease dementia (Acute) Sepsis (Acute) Acute hypokalemia (Acute) Hypomagnesemia (Acute) Polypharmacy (Acute) Advanced care planning/counseling discussion (Acute) Dependence on wheelchair (Acute) Closed fracture of greater trochanter of left femur (Acute 03/19/22) Pain, acute due to trauma (Acute) Ambulatory dysfunction (Acute) Periprosthetic hip fracture (Acute) Right kidney stone (Acute) Nocturia (Acute) Frequent falls (Acute) Progressive supranuclear palsy (Chronic) Anxiety (Chronic) Diabetic neuropathy (Acute) Urinary incontinence (Acute) Constipation (Acute) Memory loss (Acute) Gait abnormality (Acute) H/O esophagogastroduodenoscopy (Chronic ~04/29/19) Fever (Acute) Confusion (Acute) Right hip pain (Acute) GERD (gastroesophageal reflux disease) (Chronic) COPD (chronic obstructive pulmonary disease) (Chronic) S/P total knee replacement (Acute) S/P [place] fundoplication (without gastrostomy tube) [place] (Acute[place] [facility] [place] (Chronic) Obesity (Chronic) Hyperlipidemia (Acute) Insomnia (Acute) Diverticulosis (Acute) Sleep apnea (Acute) Osteoarthritis (Chronic) History of colonic polyps (Acute) History of kidney stones (Acute) History of cardiac cath (Chronic) Shoulder joint pain (Acute) Cerumen impaction (Acute) History of total hip arthroplasty (Acute) Incisional hernia (Acute) Inguinal hernia (Acute) Chronic low back pain (Acute) Unsteady gait (Acute) Difficulty swallowing (Acute) Behavioral and psychological symptoms of dementia (Acute) Diabetes mellitus (Chronic) Medical History Esophageal stricture GERD (gastroesophageal reflux disease) Hiatal hernia Palliative care patient Type 2 diabetes mellitus Surgical History History of colonoscopy History of lumbar laminectomy for spinal cord decompression History of shoulder surgery Total replacement of hip Family History Mother Dementia COPD (chronic obstructive pulmonary disease) Other Cancer Diabetes Heart disease Social History Smoking/Tobacco Use Status: Never Smoking risk assessment performed?: Yes Alcohol Intake: former Drug use: Never Substance use type: does not use Household members: spouse Housing: house Number of Children: 2 number of grandchildren: 3 Pets and animals: Yes Pets and animals: dog(s) What is your relationship status?: Panel score (0-1 are the most socially isolated patients): 1 What type of physical activity do you participate in: none Seatbelt use: always Do you feel safe at home: Yes Do you feel safe in your relationship?: Yes Meds Allergies and Home Medications Allergies Allergy/AdvReac Type Severity Reaction Status Date / Time bupropion HCl AdvReac Intermediate shakey/metal Verified 04/19/23 10:56 [From Wellbutrin] taste/off balance Penicillins AdvReac Intermediate Skin Rash Verified 04/19/23 10:56 foam tape Allergy Intermediate Skin Rash Uncoded 04/19/23 10:56 Home Medications Medication Instructions Recorded Confirmed Type glipizide 10 mg tablet 10 mg PO DAILY 04/20/16 04/19/23 History lisinopril 10 mg tablet 10 mg PO DAILY 04/20/16 04/19/23 History gabapentin 300 mg capsule 900 mg PO TID 04/17/19 04/19/23 History cholecalciferol (vitamin D3) 25 1,000 unit PO DAILY 06/13/19 04/19/23 History mcg (1,000 unit) capsule ascorbate calcium (vitamin C) 500 500 mg PO DAILY 08/12/20 04/19/23 History mg tablet fluoxetine 40 mg capsule 40 mg PO DAILY 03/24/21 04/19/23 History sucralfate 1 gram tablet 1 g PO TID 08/25/21 04/19/23 History cyanocobalamin (vitamin B-12) 1,000 mcg PO DAILY 12/21/21 04/19/23 History 1,000 mcg tablet famotidine 20 mg tablet 20 mg PO DAILY 12/21/21 04/19/23 History metformin 500 mg tablet 500 mg PO BID 12/21/21 04/19/23 History pravastatin 40 mg tablet 40 mg PO DAILY 12/21/21 04/19/23 History docusate sodium 100 mg tablet 200 mg PO DAILY #180 tabs 02/23/22 04/19/23 Rx oxybutynin chloride 5 mg tablet 5 mg PO BID 02/23/22 04/19/23 History pantoprazole 40 mg tablet,delayed 40 mg PO BID 03/21/22 04/19/23 History release acetaminophen 500 mg capsule 500 mg PO Q6H PRN 04/06/22 04/19/23 History fluticasone propionate 50 1 spray intranasal DAILY 08/24/22 04/19/23 History mcg/actuation nasal spray,suspension (Flonase Allergy Relief) propranolol 20 mg tablet 20 mg PO BID #180 tabs 10/26/22 04/19/23 Rx carbidopa 25 mg-levodopa 250 mg 1 tab PO TID #360 tabs 01/25/23 04/19/23 Rx tablet methylphenidate HCl 10 mg tablet 10 mg PO .COMPLEX #60 tabs 01/25/23 04/19/23 Rx rivastigmine tartrate 3 mg capsule See Rx Instructions .Route 01/25/23 04/19/23 Rx .COMPLEX #180 caps levofloxacin 750 mg tablet 750 mg PO DAILY #5 tabs 03/14/23 04/19/23 Rx Exam Narrative Exam Narrative: GEN: Alert and oriented to self and place, not time/date/year. pleasent and cooperative, gives minimal history. No acute distress at rest. HEENT: Head atraumatic. Conjunctiva clear, no icterus. PEERL, EOMI. no rhinorrhea. MMM, OP benign. Neck is supple with no masses or lymphadenopathy, trachea midline LUNGS: CTAB with normal effort CV: RRR with no murmurs, gallops, or rubs. ABD: +BS, soft, NT/ND EXT: no cyanosis, clubbing, or edema MSK: No joint redness or swelling including feet. NEURO: CN 2-12 grossly intact. Normal movement of 4 extremities. Normal speech and coordination SKIN: No rashes or open wounds. PSYCH: normal mood and affect Results Imaging Abdomen CT scan report/results: report reviewed (No acute abnormality) CT scan - chest: report reviewed (1. No evidence of pulmonary embolism, thoracic aortic dissection or aneurysm. 2. Cholelithiasis. 3. Findings were discussed with Rachel Lopez at 1:43 p.m. on 04/19/2023.) US - kidney/bladder: report reviewed (RUQ: 1. Cholelithiasis without evidence of acute cholecystitis. 2. Hepatomegaly with fatty infiltration. 3. Small nonobstructing right renal calculus. No hydronephrosis.) Labs 04/19/23 09:20 04/19/23 19:48 Labs: Laboratory Results - last 24 hr 04/19/23 04/19/23 04/19/23 09:20 09:20 09:20 WBC 17.66 H RBC 4.72 Hgb 14.7 Hct 42.6 MCV 90 MCH 31.1 MCHC 34.5 RDW 12.2 Plt Count 249 MPV 9.2 Immature Gran % 0.6 Neutrophils % 86.8 Lymphocytes % 5.5 Monocytes % 6.0 Eosinophils % 0.9 Basophils % 0.2 Nucleated RBC % 0.0 Absolute Neutrophils 15.33 H Absolute Lymphocytes 0.97 L Absolute Monocytes 1.06 H Absolute Eosinophils 0.16 Absolute Basophils 0.04 VBG Lactate Sodium 140 Potassium 2.9 L Chloride 109 H Carbon Dioxide 21.8 Anion Gap 9.2 BUN 15 Creatinine 0.9 Est GFR (CKD-EPI 2020) 90.74 Glucose 218 H Calcium 6.5 L Phosphorus Magnesium 1.2 L Total Bilirubin 0.8 AST 9 L ALT 19 Alkaline Phosphatase 90 Creatine Kinase Total Protein 5.4 L Albumin 2.6 L Lipase 14 L Procalcitonin Urine Color Urine Clarity Urine pH Ur Specific [place] Urine Protein Urine Ketones Urine Blood Urine Nitrite Urine Bilirubin Urine Urobilinogen Ur Leukocyte Esterase Urine RBC Urine WBC Ur Epithelial Cells Urine Crystals Urine Bacteria Urine Casts Urine Mucus Ur Culture Indicated? Urine Glucose COVID-19 Source SARS-CoV-2 (PCR) Influenza Type A (PCR) Influenza Type B (PCR) RSV (PCR) 04/19/23 04/19/23 04/19/23 10:01 10:55 10:55 WBC RBC Hgb Hct MCV MCH MCHC RDW Plt Count MPV Immature Gran % Neutrophils % Lymphocytes % Monocytes % Eosinophils % Basophils % Nucleated RBC % Absolute Neutrophils Absolute Lymphocytes Absolute Monocytes Absolute Eosinophils Absolute Basophils VBG Lactate 2.1 H Sodium Potassium Chloride Carbon Dioxide Anion Gap BUN Creatinine Est GFR (CKD-EPI 2020) Glucose Calcium Phosphorus 2.4 L Magnesium Total Bilirubin AST ALT Alkaline Phosphatase Creatine Kinase Total Protein Albumin Lipase Procalcitonin < 0.1 Urine Color Urine Clarity Urine pH Ur Specific [place] Urine Protein Urine Ketones Urine Blood Urine Nitrite Urine Bilirubin Urine Urobilinogen Ur Leukocyte Esterase Urine RBC Urine WBC Ur Epithelial Cells Urine Crystals Urine Bacteria Urine Casts Urine Mucus Ur Culture Indicated? Urine Glucose COVID-19 Source Nasopharynx SARS-CoV-2 (PCR) Negative Influenza Type A (PCR) Negative Influenza Type B (PCR) Negative RSV (PCR) Negative 04/19/23 04/19/23 04/19/23 11:56 17:25 17:40 WBC RBC Hgb Hct MCV MCH MCHC RDW Plt Count MPV Immature Gran % Neutrophils % Lymphocytes % Monocytes % Eosinophils % Basophils % Nucleated RBC % Absolute Neutrophils Absolute Lymphocytes Absolute Monocytes Absolute Eosinophils Absolute Basophils VBG Lactate 1.4 Sodium Potassium Chloride Carbon Dioxide Anion Gap BUN Creatinine Est GFR (CKD-EPI 2020) Glucose Calcium 8.7 Phosphorus Magnesium Total Bilirubin AST ALT Alkaline Phosphatase Creatine Kinase Total Protein Albumin Lipase Procalcitonin Urine Color Yellow Urine Clarity Clear Urine pH 7.0 Ur Specific [place] 1.015 Urine Protein 30 H Urine Ketones 15 H Urine Blood Small H Urine Nitrite Negative Urine Bilirubin Negative Urine Urobilinogen 4.0 H Ur Leukocyte Esterase Negative Urine RBC 5-10 H Urine WBC 0-2 Ur Epithelial Cells Rare Urine Crystals Negative Urine Bacteria Rare Urine Casts Negative Urine Mucus Negative Ur Culture Indicated? No Urine Glucose 100 H COVID-19 Source SARS-CoV-2 (PCR) Influenza Type A (PCR) Influenza Type B (PCR) RSV (PCR) 06/07/23 06/07/23 19:40 19:48 WBC RBC Hgb Hct MCV MCH MCHC RDW Plt Count MPV Immature Gran % Neutrophils % Lymphocytes % Monocytes % Eosinophils % Basophils % Nucleated RBC % Absolute Neutrophils Absolute Lymphocytes Absolute Monocytes Absolute Eosinophils Absolute Basophils VBG Lactate Sodium 132 L Potassium 3.8 Chloride 99 Carbon Dioxide 27.5 Anion Gap 5.5 BUN 16 Creatinine 1.3 Est GFR (CKD-EPI 2020) 58.37 Glucose 232 H Calcium 8.0 L Phosphorus Magnesium Total Bilirubin AST ALT Alkaline Phosphatase Creatine Kinase 97 Total Protein Albumin Lipase Procalcitonin Urine Color Urine Clarity Urine pH Ur Specific [place] Urine Protein Urine Ketones Urine Blood Urine Nitrite Urine Bilirubin Urine Urobilinogen Ur Leukocyte Esterase Urine RBC Urine WBC Ur Epithelial Cells Urine Crystals Urine Bacteria Urine Casts Urine Mucus Ur Culture Indicated? Urine Glucose COVID-19 Source SARS-CoV-2 (PCR) Influenza Type A (PCR) Influenza Type B (PCR) RSV (PCR) Last Vital Signs Temp 37.4 C 04/19/23 22:04 Pulse 99 H 04/19/23 22:04 Resp 20 04/19/23 22:04 BP 144/88 H 04/19/23 22:04 Pulse Ox 95 04/19/23 22:04 Time Spent Time spent with Patient: 55-74 minutes Time was spent: preparing to see the patient(eg.review tests), obtaining and/or reviewing separately otained hiistory, ordering medications,tests, procedures, referring, communicating with other health critical care educator, indepentently interpreting results and counseling the patient
[2023-04-20] MEDS: Water,Injection,Sterile 10 ML VIAL (04:09)
[2023-04-20] MEDS: Normal Saline Flush 10 ML SYR IVP ×4 (04:11→19:13)
[2023-04-20 06:41] LABS: Abs Immature Grans 0.06 10^3/uL (0.0-0.06); Absolute Basophil Count 0.04 10^3/uL (0.0-0.2); Absolute Monocyte Count 1.14 10^3/uL (0.1-0.8); Absolute Neutrophil Count 9.16 10^3/uL (1.2-6.7); Basophils % 0.3; Eosinophils % 1.2; HCT 38.5 % (40.0-50.0); HGB 13.1 g/dL (13.5-17.5); Immature Grans % 0.5; Lymphocytes % 12.2; MCV 91 fL (80-95); MPV 9.3 fL (8.0-11.0); Monocytes % 9.5; Neutrophils % 76.3; Platelet Count 223 10^3/uL (130-400); RBC 4.23 10^6/uL (4.36-5.78); RDW 12.4 % (11.8-14.1); RDW-SD 41.1 fL; WBC 12.01 10^3/uL (4.4-10.8)
[2023-04-20 06:45] LABS: Absolute Eosinophil Count 0.14 10^3/uL (0.0-0.7); Absolute Lymphocyte Count 1.47 10^3/uL (1.2-3.4)
[2023-04-20 07:06] LABS: Anion Gap 7.7 mmol/L (3-11); BUN 17 mg/dL (7-18); CO2 27.3 mmol/L (21.0-32.0); CREATININE 1.3 mg/dL (0.70-1.30); Calcium 8.3 mg/dL (8.5-10.1); Chloride 103 mmol/L (98-107); Estimated GFR 58.37 (mL/min/1.73m2); Glucose 217 mg/dL (74-106); Potassium 3.8 mmol/L (3.5-5.1); Sodium 138 mmol/L (136-145)
[2023-04-20 07:36] VITALS: BP 148/79; PULSE 85; RESP 14; TEMP 37.3; O2SAT 93
[2023-04-20] MEDS: Ondansetron 4 MG/2 ML VIAL IVP (08:06)
[2023-04-20] MEDS: Insulin Aspart 300 UNITS/3 ML PEN SC ×3 (08:06→17:03)
[2023-04-20] MEDS: Enoxaparin 40 MG/0.4 ML SYR SC (08:06)
[2023-04-20] MEDS: Rivastigmine 1.5 MG CAP 3 MG PO ×2 (09:22→19:10)
[2023-04-20] MEDS: Gabapentin 300 MG CAP 900 MG PO ×3 (09:22→19:10)
[2023-04-20] MEDS: FLUoxetine 20 MG CAP 40 MG PO (09:23)
[2023-04-20] MEDS: Sucralfate 1 GM TAB PO ×3 (09:23→16:19)
[2023-04-20] MEDS: Propranolol 20 MG TAB PO ×2 (09:23→19:10)
[2023-04-20] MEDS: Docusate Sodium 100 MG CAP 200 MG PO (09:23)
[2023-04-20] MEDS: Pantoprazole 40 MG TABCR PO ×2 (09:24→22:44)
[2023-04-20] MEDS: Famotidine 20 MG TAB PO (09:24)
[2023-04-20] MEDS: cefTRIAXone 2 GM/50 ML BAG IVPB (09:24)
--- NOTE | 2023-04-20 10:28 | INITIAL_ITS ---
Date of service: 04/20/23 Time of Service: 10:28 Care Management Initial Assmt Initial Assessment REASON FOR HOSPITALIZATION:: fever PREVIOUS FUNCTIONAL STATUS/SOCIAL/FAMILY SUPPORTS:: Valdemar lives in a single family home in [place] with his Carolina and 3 other people. They have 2 children; one lives locally and one son lives in [place]. 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 He is unable to walk and is wheelchair bound. Valdemar has a hospital bed and both manual and electric wheelchairs. He is able to stand to transfer with supervision. Valdemar does not receive any community services although he is [id number] by Palliative Care. Sofie Yin APRN is his palliative care provider. CURRENT FUNCTIONAL STATUS:: Valdemar was sitting up in bed visiting with his when CM met with him. He was polite but Carolina answered most questions. When discussing the possibility of a short term rehab stay in a [facility] facility, Valdemar was reluctant to pursue that option but Carolina reminded him that he had a good experience at rehab last year. He has not had a PT evaluation yet so it is unknown what their recommendation will be. Documentation from a Mar, 2022 admission indicated that he was independent. He is now wheelchair bound and is unable to ambulate, although he can stand long enough to transfer bed to chair, with supervision. ADVANCE DIRECTIVES:: ANNA on file. Harriet is [facility] Has patient been provided with info about the portal/API?: Yes Did the patient sign up for the portal?: No CODE STATUS:: DNR/DNI CODE STATUS COMMENT:: ANNA states Valdemar is a DNR/DNI INSURANCE COVERAGE / FINANCIAL ISSUES:: [facility] Medicare Replacement CURRENT HOME/COMMUNITY SERVICES/EQUIPMENT:: none PRIMARY CARE PHYSICIAN:: Awilda Rollins POTENTIAL DISCHARGE NEEDS:: follow up with PCP and plan of care PATIENT/FAMILY EDUCATION NEEDS:: Review of discharge instructions, limitations, activity, follow up plan, discuss Ask me Three TRANSPORTATION:: to be determined by disposition PLAN:: Anticipate Valdemar will be discharged home, although he may benefit from short term rehab or home health services. He will follow up with his community providers and plan of care and transport with family. CM will support Valdemar and his discharge needs. PFSH All Active Problems (Updated 04/20/23 @ 01:48 by Abdifatah Yi) Discharge planning issues (Acute) DVT prophylaxis (Acute) Parkinson's disease dementia (Acute) Sepsis (Acute) Acute hypokalemia (Acute) Hypomagnesemia (Acute) Polypharmacy (Acute) Advanced care planning/counseling discussion (Acute) Dependence on wheelchair (Acute) Closed fracture of greater trochanter of left femur (Acute 03/19/22) Pain, acute due to trauma (Acute) Ambulatory dysfunction (Acute) Periprosthetic hip fracture (Acute) Right kidney stone (Acute) Nocturia (Acute) Frequent falls (Acute) Progressive supranuclear palsy (Chronic) Anxiety (Chronic) Diabetic neuropathy (Acute) Urinary incontinence (Acute) Constipation (Acute) Memory loss (Acute) Gait abnormality (Acute) H/O esophagogastroduodenoscopy (Chronic ~04/29/19) Fever (Acute) Confusion (Acute) Right hip pain (Acute) GERD (gastroesophageal reflux disease) (Chronic) COPD (chronic obstructive pulmonary disease) (Chronic) S/P total knee replacement (Acute) S/P Arcadio fundoplication (without gastrostomy tube) procedure (Acute[place] [facility] [place] (Chronic) Obesity (Chronic) Hyperlipidemia (Acute) Insomnia (Acute) Diverticulosis (Acute) Sleep apnea (Acute) Osteoarthritis (Chronic) History of colonic polyps (Acute) History of kidney stones (Acute) History of cardiac cath (Chronic) Shoulder joint pain (Acute) Cerumen impaction (Acute) History of total hip arthroplasty (Acute) Incisional hernia (Acute) Inguinal hernia (Acute) Chronic low back pain (Acute) Unsteady gait (Acute) Difficulty swallowing (Acute) Behavioral and psychological symptoms of dementia (Acute) Diabetes mellitus (Chronic) Medical History Esophageal stricture GERD (gastroesophageal reflux disease) Hiatal hernia Palliative care patient Type 2 diabetes mellitus Surgical History History of colonoscopy History of lumbar laminectomy for spinal cord decompression History of shoulder surgery Total replacement of hip Family History Mother Dementia COPD (chronic obstructive pulmonary disease) Other Cancer Diabetes Heart disease Social History Smoking/Tobacco Use Status: Never Smoking risk assessment performed?: Yes Alcohol Intake: former Drug use: Never Substance use type: does not use Household members: spouse Housing: house Number of Children: 2 number of grandchildren: 3 Pets and animals: Yes Pets and animals: dog(s) What is your relationship status?: Panel score (0-1 are the most socially isolated patients): 1 What type of physical activity do you participate in: none Seatbelt use: always Do you feel safe at home: Yes Do you feel safe in your relationship?: Yes
[2023-04-20] MEDS: DOXYCYCLINE 100 MG in Normal Saline 100 ML IVPB ×2 (10:49→22:45)
--- NOTE | 2023-04-20 14:22 | CHAPLAIN ---
I had a short visit with Valdemar. He was resting in bed. He said he was trying to get a hold of his . I offered to help, but he said he doesn't know her phone number. He did say that he believes she knows he's here. I explained my role and offered support.
[2023-04-20 15:19] VITALS: BP 114/72; PULSE 71; RESP 16; TEMP 37.1; O2SAT 94
--- NOTE | 2023-04-20 15:20 | PGE_ITS ---
Date of Service Date of service: 04/20/23 Time of Service: 15:20 Assessment and Plan Assessment and plan (1) Sepsis: Status: Acute Assessment and plan: His fever, elevated WBC, and lactate all raise concern for sepsis. Afebrile since 16:[address] C/A/P we have not seen a source for his infection. Viral testing for flu/COVID negative. Given the season and his chronic cognitive limitations, this could also be tick borne; tests pending. Cont deftriaxone, doxy, vanc. MRSA screen ordered. Continues these until blood culture returns or another source reveals itself (2) Acute hypokalemia: Status: Acute Assessment and plan: Repleted and normal. Monitor. (3) Hypomagnesemia: Status: Acute Assessment and plan: Repleted. Monitor. (4) Type 2 diabetes mellitus: Assessment and plan: Cont basal/bolus insulin and hold the glipizide and metformin. Monitor and adjust insulin as needed. (5) COPD (chronic obstructive pulmonary disease): Status: Chronic Assessment and plan: stable, not active currenty (6) Parkinson's disease dementia: Status: Acute Assessment and plan: Appears near his baseline per report, but he is at risk for acutely worsening. Continue outpatient medicaitons including rivastigine. Hold the oxybutynin as it may be making cognition worse. (7) DVT prophylaxis: Status: Acute Assessment and plan: LMWH (8) Discharge planning issues: Status: Acute Assessment and plan: stable on the medical floor. He is DNR status Subjective Subjective Patient reports: no new complaints, tolerating a regular diet and afebrile; den ies nausea, vomiting or shortness of breath Interval history since last seen: Pt sitting up in bed eating sandwich. Exam Narrative Exam Narrative: GEN: Alert and oriented to self and place, not time/date/year. pleasent and cooperative, gives minimal history. No acute distress at rest. HEENT: sclera clear. MMM LUNGS: CTAB with normal effort CV: RRR with no murmurs ABD: +BS, soft, NT/ND EXT: no edema, calf tenderness. MSK: No joint redness or swelling including feet. NEURO: Normal movement of 4 extremities. Normal speech and coordination SKIN: No rashes or open wounds. PSYCH: normal mood and affect Objective Last Vital Signs Temp 37.3 C 06/08/23 07:36 Pulse 85 04/20/23 07:36 Resp 14 04/20/23 07:36 BP 148/79 H 04/20/23 07:36 Pulse Ox 93 04/20/23 07:36 Laboratory Results - last 24 hr 04/19/23 04/19/23 04/19/23 17:25 17:40 19:40 WBC RBC Hgb Hct MCV MCH MCHC RDW Plt Count MPV Immature Gran % Neutrophils % Lymphocytes % Monocytes % Eosinophils % Basophils % Nucleated RBC % Absolute Neutrophils Absolute Lymphocytes Absolute Monocytes Absolute Eosinophils Absolute Basophils VBG Lactate 1.4 Sodium Potassium Chloride Carbon Dioxide Anion Gap BUN Creatinine Est GFR (CKD-EPI 2020) Glucose Calcium Magnesium Creatine Kinase 97 Urine Color Yellow Urine Clarity Clear Urine pH 7.0 Ur Specific [place] 1.015 Urine Protein 30 H Urine Ketones 15 H Urine Blood Small H Urine Nitrite Negative Urine Bilirubin Negative Urine Urobilinogen 4.0 H Ur Leukocyte Esterase Negative Urine RBC 5-10 H Urine WBC 0-2 Ur Epithelial Cells Rare Urine Crystals Negative Urine Bacteria Rare Urine Casts Negative Urine Mucus Negative Ur Culture Indicated? No Urine Glucose 100 H 04/19/23 04/20/23 04/20/23 19:48 06:12 06:12 WBC 12.01 H RBC 4.23 L Hgb 13.1 L Hct 38.5 L MCV 91 MCH 31.0 MCHC 34.0 RDW 12.4 Plt Count 223 MPV 9.3 Immature Gran % 0.5 Neutrophils % 76.3 Lymphocytes % 12.2 Monocytes % 9.5 Eosinophils % 1.2 Basophils % 0.3 Nucleated RBC % 0.0 Absolute Neutrophils 9.16 H Absolute Lymphocytes 1.47 Absolute Monocytes 1.14 H Absolute Eosinophils 0.14 Absolute Basophils 0.04 VBG Lactate Sodium 132 L 138 Potassium 3.8 3.8 Chloride 99 103 Carbon Dioxide 27.5 27.3 Anion Gap 5.5 7.7 BUN 16 17 Creatinine 1.3 1.3 Est GFR (CKD-EPI 2020) 58.37 58.37 Glucose 232 H 217 H Calcium 8.0 L 8.3 L Magnesium 2.0 Creatine Kinase Urine Color Urine Clarity Urine pH Ur Specific [place] Urine Protein Urine Ketones Urine Blood Urine Nitrite Urine Bilirubin Urine Urobilinogen Ur Leukocyte Esterase Urine RBC Urine WBC Ur Epithelial Cells Urine Crystals Urine Bacteria Urine Casts Urine Mucus Ur Culture Indicated? Urine Glucose Time Spent with Patient Time Spent with Patient: 25-34 minutes Time was spent: preparing to see the patient(eg.review tests), obtaining and/or reviewing separately otained hiistory, ordering medications,tests, procedures, referring, communicating with other health occasional caregiver and indepentently interpreting results
[2023-04-20] MEDS: VANCOMYCIN/WATER (PEG) 750 MG/150 ML BAG 150 MG IVPB (16:20)
--- NOTE | 2023-04-20 16:33 | PHA.REVIEW2 ---
Pharmacy Admission Review - Admission Clinical Review (Last Reviewed 04/20/23 @ 01:31 by Abdifatah Yi) Discharge planning issues (Acute) DVT prophylaxis (Acute) Parkinson's disease dementia (Acute) Sepsis (Acute) Acute hypokalemia (Acute) Hypomagnesemia (Acute) bupropion HCl [From Wellbutrin] Adverse Reaction (Intermediate, Verified 04/19/23 10:56) shakey/metal taste/off balance Penicillins Adverse Reaction (Intermediate, Verified 04/19/23 10:56) Skin Rash foam tape Allergy (Intermediate, Uncoded 04/19/23 10:56) Skin Rash Resuscitation Status DNR Height 5 ft 11 in Weight 107.683 kg - Renal Dosing Renal Dosing: BUN 17 mg/dL (7-18) 04/20/23 06:12 Creatinine 1.3 mg/dL (0.70-1.30) 04/20/23 06:12 Medications needing adjustments: Reviewed (eCrCl 64 ml/min) - Anticoagulation Anticoagulation: Hgb 13.1 g/dL (13.5-17.5) L 04/20/23 06:12 Hct 38.5 % (40.0-50.0) L 04/20/23 06:12 Plt Count 223 10^3/uL (130-400) 04/20/23 06:12 Creatinine 1.3 mg/dL (0.70-1.30) 04/20/23 06:12 DVT Prophylaxis: Reviewed Medications: Enoxaparin - Opiate Usage Evaluate Pain Scale/Pains Meds: N/A - Relevant Labs Sodium 138 mmol/L (136-145) 04/20/23 06:12 Potassium 3.8 mmol/L (3.5-5.1) 04/20/23 06:12 Chloride 103 mmol/L (98-107) 04/20/23 06:12 Phosphorus 2.4 mg/dL (2.6-4.7) L 04/19/23 10:55 Magnesium 2.0 mg/dL (1.8-2.4) 04/20/23 06:12 Electrolytes, C-Reactive P, ESR: Reviewed - DM Control DM Control: Glucose 217 mg/dL (74-106) H 04/20/23 06:12 Finger Stick Blood Glucose 240 Finger Stick Blood Glucose 240 DM Control: Reviewed (aspart per SS + glargine 25u at HS -- this is new, was just using metformin + glipizide at home) - Cardiac Review BP, HR, EF%: Reviewed - Qtc Review QTc: N/A - IV to PO Switch IV Medications: Reviewed - Home Meds Home Med List reviewed: Reviewed Relevent Home Meds Not ordered & why?: All ordered (basal/sliding scale insulin ordered instead of ODAs) Medication adherence barriers identified?: Doesn't appear he has filled rivastigmine within the past year, he uses [facility] mail order pharmacy, I would like to call them to find out if he has an active order with them. Patient has expressed not wanting to take so many pills at recent PCP/neuro visits and PCP is actively trying to DC some medications -- he would benefit from thorough counseling if he is to be started on anything new - Current meds Current Medication Order Review: Reviewed (empiric abx coverage with ceftriaxone + doxy + vanco, source of infection is still unclear, MRSA screen is pending)
[2023-04-20 19:07] VITALS: BP 132/72; PULSE 76; RESP 20; TEMP 37.1; O2SAT 94
[2023-04-20] MEDS: Insulin Glargine 300 UNITS/3 ML PEN 25 UNITS SC (22:42)
[2023-04-21 03:45] VITALS: BP 154/93; PULSE 73; RESP 16; TEMP 36.3; O2SAT 94
[2023-04-21] MEDS: VANCOMYCIN/WATER (PEG) 750 MG/150 ML BAG 150 MG IVPB ×2 (04:05→16:54)
[2023-04-21 06:41] LABS: Abs Immature Grans 0.04 10^3/uL (0.0-0.06); Absolute Basophil Count 0.02 10^3/uL (0.0-0.2); Absolute Eosinophil Count 0.39 10^3/uL (0.0-0.7); Absolute Lymphocyte Count 1.83 10^3/uL (1.2-3.4); Absolute Neutrophil Count 4.56 10^3/uL (1.2-6.7); Basophils % 0.3; HGB 12.7 g/dL (13.5-17.5); Immature Grans % 0.5; Lymphocytes % 23.6; MCH 30.7 pg (27.0-33.0); MCHC 33.4 % (32.0-36.0); MCV 92 fL (80-95); Monocytes % 11.6; Platelet Count 213 10^3/uL (130-400); RBC 4.14 10^6/uL (4.36-5.78); RDW 12.5 % (11.8-14.1); RDW-SD 41.9 fL; WBC 7.74 10^3/uL (4.4-10.8)
[2023-04-21 08:00] VITALS: BP 137/76; PULSE 86; RESP 18; TEMP 36.9; O2SAT 94
[2023-04-21] MEDS: Sucralfate 1 GM TAB PO ×3 (08:04→16:54)
[2023-04-21] MEDS: Pantoprazole 40 MG TABCR PO ×2 (08:04→21:10)
[2023-04-21] MEDS: Propranolol 20 MG TAB PO ×2 (08:04→21:09)
[2023-04-21] MEDS: Gabapentin 300 MG CAP 900 MG PO ×3 (08:04→21:10)
[2023-04-21] MEDS: Rivastigmine 1.5 MG CAP 3 MG PO ×2 (08:04→21:10)
[2023-04-21] MEDS: FLUoxetine 20 MG CAP 40 MG PO (08:04)
[2023-04-21] MEDS: Enoxaparin 40 MG/0.4 ML SYR SC (08:05)
[2023-04-21] MEDS: Famotidine 20 MG TAB PO (08:05)
[2023-04-21] MEDS: cefTRIAXone 2 GM/50 ML BAG IVPB (09:44)
[2023-04-21] MEDS: DOXYCYCLINE 100 MG in Normal Saline 100 ML IVPB ×2 (09:44→21:09)
--- NOTE | 2023-04-21 10:07 | RESPIRATORY ---
RT spoke with patient concerning history of DEMETRICE in patient chart, patient no longer uses a device at night.
--- NOTE | 2023-04-21 10:08 | IN_ITS ---
Date of service: 04/21/23 Time of Service: 10:08 PT Notes Visit Reasons: Fever Physical Therapy Inpatient Initial Evaluation Date: 04/21/2023 Referring Doctor: Winnie Hay MD PT Orders: PT CONSULT: Limited ability Precautions:?Fall. Standard. Activity as tolerated. Patient Profile/Admitting Diagnosis: Valdemar is a 72-year-old male with past medical history significant for Parkinson's Disease, progressive supranuclear palsy, and bilateral total hip arthroplasties who presented to the ED on 04/19/2023 due to generalized weakness and fever. Patient is admitted for management of sepsis, acute hypokalemia, hypomagnesemia, type II DM, COPD, and PAD dementia. PMHX: All Active Problems?(Updated 04/20/23 @ 01:48 by Abdifatah Yi) Discharge planning issues (Acute) DVT prophylaxis (Acute) Parkinson's disease dementia (Acute) Sepsis (Acute) Acute hypokalemia (Acute) Hypomagnesemia (Acute) Polypharmacy (Acute) Advanced care planning/counseling discussion (Acute) Dependence on wheelchair (Acute) Closed fracture of greater trochanter of left femur (Acute 03/19/22) Pain, acute due to trauma (Acute) Ambulatory dysfunction (Acute) Periprosthetic hip fracture (Acute) Right kidney stone (Acute) Nocturia (Acute) Frequent falls (Acute) Progressive supranuclear palsy (Chronic) Anxiety (Chronic) Diabetic neuropathy (Acute) Urinary incontinence (Acute) Constipation (Acute) Memory loss (Acute) Gait abnormality (Acute) H/O esophagogastroduodenoscopy (Chronic ~04/29/19) Fever (Acute) Confusion (Acute) Right hip pain (Acute) GERD (gastroesophageal reflux disease) (Chronic) COPD (chronic obstructive pulmonary disease) (Chronic) S/P total knee replacement (Acute) S/P Arcadio fundoplication (without gastrostomy tube) procedure (Acute[facility] [place] Obesity (Chronic) Hyperlipidemia (Acute) Insomnia (Acute) Diverticulosis (Acute) Sleep apnea (Acute) Osteoarthritis (Chronic) History of colonic polyps (Acute) History of kidney stones (Acute) History of cardiac cath (Chronic) Shoulder joint pain (Acute) Cerumen impaction (Acute) History of total hip arthroplasty (Acute) Incisional hernia (Acute) Inguinal hernia (Acute) Chronic low back pain (Acute) Unsteady gait (Acute) Difficulty swallowing (Acute) Behavioral and psychological symptoms of dementia (Acute) Diabetes mellitus (Chronic) Medical History? Esophageal stricture GERD (gastroesophageal reflux disease) Hiatal hernia Palliative care patient Type 2 diabetes mellitus Surgical History? History of colonoscopy History of lumbar laminectomy for spinal cord decompression History of shoulder surgery Total replacement of hip Social History/Home Situation: Lives with in a private home with a ramp to enter.? Modified independent with all mobility ADL's using 4-wheeled walker prior to admission.? Equipment Owned/DME: Hospital bed, wheelchair, bedside commode, shower chair, FWW, 4-wheeled walker Subjective: Agreeable to PT consult.? States that he has been wheelchair-bound for about 2 years now Objective: General Observation: Supine in bed.? IV through right UE.? Sen catheter in place.? Telemetry monitoring in place.? Bradykinesic. Mental Status: Alert and oriented as to persona and place.? Able to pay attention, focus, and respond appropriately although a little delayed with response time. Pain: Moderate pain in the left hip with weightbearing ROM: Right Upper Extremity: ? Shoulder Flexion WFL. Shoulder abduction WFL. Elbow flexion WFL. Wrist flexion WFL. Functional opening and closing of hand WFL. Left Upper Extremity:? Shoulder Flexion WFL. Shoulder abduction WFL. Elbow flexion WFL. Wrist flexion WFL. Functional opening and closing of hand WFL. Right Lower Extremity: Hip flexion WFL. Hip abduction WFL. Knee flexion WFL. Ankle dorsiflexion WFL. Ankle plantarflexion WFL. Left Lower Extremity: Hip flexion WFL. Hip abduction NT. Knee flexion WFL. Ankle dorsiflexion WFL. Ankle plantarflexion WFL. Strength: Right Upper Extremity: Shoulder flexors 4-/5. Shoulder abductors 4-/5. Elbow flexors 4-/5. Elbow extensors 4-/5. Cash Reconciliation Specialist strong. Left Upper Extremity: Shoulder flexors 4-/5. Shoulder abductors 4-/5. Elbow flexors 4-/5. Elbow extensors 4-/5. Cash Reconciliation Specialist strong. Right Lower Extremity: Hip flexors 4-/5. Hip abductors 4-/5. Knee flexors 4-/5. Knee extensors 4-/5. Ankle dorsiflexors 4-/5. Ankle plantarflexors 4-/5. Left Lower Extremity: Hip flexors 4-/5. Hip abductors 4-/5. Knee flexors 4-/5. Knee extensors 4-/5. Ankle dorsiflexors 4-/5. Ankle plantarflexors 4-/5. Bed Mobility/Transfers: Supine to sit minimal assist Sit to stand minimal assist with FWW Stand to sit minimal assist with FWW Bed to reclining chair minimal assist with FWW Gait: Instructed patient with level surface ambulation of 5 steps requiring minimal assist.? Steps small and shuffled. Required moderate assistance with walker management during turning. Cues provided to safely back up and sit down onto chair. Balance: Static Sitting: Good Dynamic Sitting: Fair Static Standing: Fair Dynamic Standing: Poor Special Tests: Mobility Limitations Standardized Measure [facility] AM-PAC 6 clicks Basic Mobility Inpatient Short Form: Raw Score: 18 CMS Score: 47% deficit? ? ? Informed Consent/Education:? Patient and was instructed in purpose of PT consult and plan of care. Agreeable to proceed with established PT POC to achieve personal goals.? ASSESSMENT: Patient requires the use of FWW for short distance (up to 5 steps today) with minimal assist. Patient has been wheelchair-bound but appears that he could do more with proper cueing. Potentially may be able to progress transfer/ambulation independence distance using the FWW with SNF placement. Patient presents with clinical signs and symptoms consistent with current/admitting diagnoses that have resulted to mobility limitations, gait instability, generalized weakness, and overall ADL decline as demonstrated by the following impairment level findings: 1.? Decreased strength to left LE major muscle groups (chronic) 2.? Impaired sitting/standing balance (chronic) 3.? Impaired activity tolerance (chronic) Impairments are contributing to the following functional limitations: 1.? Decline in bed mobility skills (chronic) 2.? Decline in transfer skills (chronic) 3.? Difficulty with ambulation without assistive device and physical assistance (chronic) 4.? Increased completion time for mobility ADL performance (chronic) 5.? Increased risk for falls (chronic) 6.? Difficulty with managing steps alone safely (chronic) Patient is assessed as a 82594 moderate complexity based on the following: History: 72-year-old?male with past medical history as indicated above Examination: Demonstrable impairment in strength, balance, and mobility level with underlying impairments and functional limitations as exhibited above as well as deficit score of 47% utilizing the [facility] Mobility Inpatient Short Form Presentation: Stable Decision Making:?86200 moderate complexity complexity Goals: Goals X1 week 1. Supine-Sit independent 2. Sit-Supine independent 3. Sit-Stand independent 4. Stand-Sit independent with FWW 5. Bed-Chair independent with FWW 6. Chair-Bed independent with FWW 7. Independent gait on level surface with use of FWW for at least 15 feet wi thout report of pain nor dyspnea 8.?Fair static and dynamic standing balance/tolerance Plan of Care/Treatment Plan: 1-2x/day, 7 days/week x 1 week. Plan of care has been reviewed with the MINING AND QUARRYING MACHINERY REPAIRER providing the service under Physical Therapy direction. Initiate Physical Therapy intervention for pain management as needed, strengthening, bed mobility, transfers, gait, stairs, balance training, and use of assistive device. DISCHARGE RECOMMENDATIONS: [] ? Home with no services [] [] ? Home with services [specify] [] ? Home with outpatient PT [] [X] ? SNF for continued rehabilitation.? Patient will benefit from short-term rehabilitation at a correction facility for continued skilled physical therapy services in order to progress mobility level, strength, and balance in preparation for a safe discharge to home. [] ? Model Builder Display Care [] [] ? SNF versus LTC based on ability to participate and progress [] TREATMENT CODE/TIME: 98743 x 20 minutes, 93159 x 10 minutes beginning at 9:36 AM. Thank you for the opportunity to participate in the care of this patient. Trinity Poon PT, DPT, CLT [facility] [place], [place]
[2023-04-21 11:34] LABS: Lyme Ab w Rflx to Lyme Confirm Negative (Negative)
[2023-04-21] MEDS: Insulin Aspart 300 UNITS/3 ML PEN SC ×2 (11:50→16:54)
[2023-04-21 15:10] VITALS: BP 142/82; PULSE 63; RESP 16; TEMP 36.6; O2SAT 94
[2023-04-21 15:17] LABS: Vancomycin, Trough 13.2 ug/mL (10.0-20.0)
--- NOTE | 2023-04-21 15:58 | PDOC.CMPRO ---
Date of service: 04/21/23 Time of Service: 15:58 Care Management Progress Note Progress Note Text Progress Note Text: S/O: Valdemar was sitting up in bed when CM met with him. There was a conversation with Valdemar and his [place] about discharge disposition, home vs SNF. After much discussion it was decided that Valdemar will go home tomorrow with new home health services. They have been given information about area SNFs in case after discharge, they decide that rehab would be beneficial and/or necessary. CM offered to assist as needed. A:Valdemar is a 72 year old man admitted on 04/19/23 with fever P:Anticipate Valdemar will be discharged home with new home health services for RN, PT and OT. He will follow up with his PCP and plan of care and transport with his . CM will support Valdemar and his discharge needs.
[2023-04-21] MEDS: Insulin Glargine 300 UNITS/3 ML PEN 25 UNITS SC (21:09)
[2023-04-21] MEDS: Docusate Sodium 100 MG CAP 200 MG PO (21:09)
[2023-04-21 23:40] VITALS: BP 177/109; PULSE 69; RESP 18; TEMP 37; O2SAT 95
[2023-04-21] MEDS: Ondansetron 4 MG/2 ML VIAL IVP (23:54)
[2023-04-22] MEDS: VANCOMYCIN/WATER (PEG) 750 MG/150 ML BAG 150 MG IVPB (04:21)
[2023-04-22 07:06] LABS: Anion Gap 7.7 mmol/L (3-11); BUN 21 mg/dL (7-18); CO2 26.3 mmol/L (21.0-32.0); CREATININE 1.4 mg/dL (0.70-1.30); Calcium 8.4 mg/dL (8.5-10.1); Chloride 104 mmol/L (98-107); Glucose 214 mg/dL (74-106); Potassium 3.9 mmol/L (3.5-5.1); Sodium 138 mmol/L (136-145)
[2023-04-22 07:29] VITALS: BP 157/90; PULSE 58; RESP 16; TEMP 36.5; O2SAT 95
[2023-04-22] MEDS: Enoxaparin 40 MG/0.4 ML SYR SC (08:17)
[2023-04-22] MEDS: Gabapentin 300 MG CAP 900 MG PO (08:17)
[2023-04-22] MEDS: Famotidine 20 MG TAB PO (08:17)
[2023-04-22] MEDS: Pantoprazole 40 MG TABCR PO (08:17)
[2023-04-22] MEDS: FLUoxetine 20 MG CAP 40 MG PO (08:17)
[2023-04-22] MEDS: Rivastigmine 1.5 MG CAP 3 MG PO (08:17)
[2023-04-22] MEDS: Insulin Aspart 300 UNITS/3 ML PEN SC (08:18)
[2023-04-22] MEDS: Propranolol 20 MG TAB PO (08:18)
[2023-04-22] MEDS: Sucralfate 1 GM TAB PO (08:18)
[2023-04-22] MEDS: DOXYCYCLINE 100 MG in Normal Saline 100 ML IVPB (09:30)
--- NOTE | 2023-04-22 10:30 | W.PM.DS.N ---
Date of service: 04/22/23 Time of Service: 10:31 DS: Diagnosis Discharge Diagnosis (1) Sepsis: Status: Acute Asessment and Plan: Resolved. Etiology of infection not found. He was treated with ceftriaxone and vancomycin. Vancomycin stopped when MRSA screen shown to be negative. His WBC count normalized. No further antibiotics will be prescribed. HH will draw lab on Monday, 04/24; CBC. (2) Acute hypokalemia: Status: Acute Asessment and Plan: Repleted. BMP to be drawn on 04/24 by HH. (3) Hypomagnesemia: Status: Acute Asessment and Plan: Repleted. (4) Type 2 diabetes mellitus: Asessment and Plan: No recent A1c in hospital records; defer to PCP. He will continue home glipizide and metformin. He was on basal/bolus insulin while hospitalized so a transition to insulin vs the addition of other diabetic meds (Jardiance, semiglutide, etc.) might be appropriate. (5) COPD (chronic obstructive pulmonary disease): Status: Chronic Asessment and Plan: No current exacerbation. (6) Parkinson's disease dementia: Status: Acute Asessment and Plan: No behavioral concerns. Cont current home meds. His ambulatory dysfunction returned to baseline; requiring 1 person assist with pivoting for transfers. His assists. She is scheduled for a hip surgery in the next several weeks. Given he has had a 3 night stay, he may require going to a SNF while she recovers. Discharge Plan Disposition Patient Disposition: Home W/Home Health Services Condition: Improving Discharge Details Reason For Visit: Fever Admit Date/Time: 04/19/23 20:33 Admit Provider: Abdifatah Yi Attending Provider: Abdifatah Yi Primary Care Provider: Awilda Rollins Hospital Course Hospital Course: 72 yo M who is wheelchair bound (with 1 person assist to stand and pivot to transfer), Parkinson Dementia who presented with general weakness and fever that started on the morning of admission.? He otherwise feels okay.? He had no focal pain, denied new cough or dyspnea.? No urinary symptoms, no skin changes or rash.? He did not notice a recent tick bite.? His history is limited by his mental status with a limited memory.? Of note, he was seen in the ED 03/14/23 after a fall with a right foot injury.? At that time he had a WBC of 13 and cough noted on ROS.? CXR was negative but given cough and WBC he was given a 5 day course of levofloxacin that he completed. See Diagnosis [facility] orders placed. PCP follow up in 1-2 weeks. Home Meds and New Rx's Prescriptions: Continued sucralfate 1 gram tablet 1 g PO TID docusate sodium 100 mg tablet 200 mg PO DAILY Qty: 180 0RF Rx Instructions: AT HS fluticasone propionate [Flonase Allergy Relief] 50 mcg/actuation spray,suspension 1 spray intranasal DAILY Rx Instructions: administer into each nostril propranolol 20 mg tablet 20 mg PO BID Qty: 180 3RF gabapentin 300 mg capsule 900 mg PO TID fluoxetine 40 mg capsule 40 mg PO DAILY acetaminophen 500 mg capsule 500 mg PO Q6H PRN methylphenidate HCl 10 mg tablet 10 mg PO .COMPLEX MDD 20mg Qty: 60 0RF Rx Instructions: 10 mg orally once daily in am; ok to take 2nd at noon if still overly fatigued; carbidopa-levodopa 25-250 mg tablet 1 tab PO TID Qty: 360 3RF Rx Instructions: WITH MEALS (0800,1200,1700) rivastigmine tartrate 3 mg capsule See Rx Instructions .ROUTE .COMPLEX Qty: 180 3RF Dose Instruction: Take 1 capsule by mouth twice daily Rx Instructions: Take 1 capsule by mouth twice daily metformin 500 mg tablet 500 mg PO BID famotidine 20 mg tablet 20 mg PO DAILY pravastatin 40 mg tablet 40 mg PO DAILY Patient Comments: no longer taking oxybutynin chloride 5 mg tablet 5 mg PO BID glipizide 10 MG tablet 10 mg PO DAILY polyethylene glycol 3350 17 gram Powder In Packet 17 g PO DAILY pantoprazole 40 mg tablet,delayed release (DR/EC) 40 mg PO BID Patient Comments: TAKE ONE TABLET BY MOUTH TWICE A DAY Discontinued cholecalciferol (vitamin D3) 1,000 unit capsule 1,000 unit PO DAILY Patient Comments: no longer taking ascorbate calcium (vitamin C) 500 mg tablet 500 mg PO DAILY Patient Comments: no longer taking cyanocobalamin (vitamin B-12) 1,000 mcg tablet 1,000 mcg PO DAILY Patient Comments: no longer taking lisinopril 10 MG tablet 10 mg PO DAILY Patient Comments: no longer taking levofloxacin 750 mg tablet 750 mg PO DAILY Qty: 5 0RF Patient Comments: no longer taking Discharge Instructions Instructions: Fever in Adults (ED) Stand Alone Forms: Nursing Discharge Form Referrals: Awilda Rollins [Primary Care Provider] - (Please call on Monday to make a follow up appointment for 1-2 weeks) Activity:: Activity as Tolerated Equipment/Supplies:: No Equipment Needed Diet:: Resume usual home diet. Discharge Orders Discharge Orders: Discharge Order (Routine); Ordered 04/22/23 Ordered By: Manoj Pretty Other Ambulatory Orders: Basic Metabolic Panel (Routine) Timeframe: 20230424 Location: None Selected Ordered By: Manoj Pretty Complete Blood Count w/Diff (Routine) Timeframe: 20230501 Location: None Selected Ordered By: Manoj Pretty DS: Summary Time Spent with Patient providing and/or coordinating discharge services: Greater than 30 minutes Status at Discharge Functional status at discharge: wheelchair bound (Pivots to transfer to and from bed/chair/commode.) Overall status at discharge: patient is progressing back to baseline Mental Status: other (Early dementia. ) Speech and Movement: speech clear Mood: congruent mood and other (Early dementia. ) Affect: normal affect Exam Narrative Exam Narrative: GEN: Alert and oriented to self and place, not time/date/year. Sitting upright in bed talking on phone. HEENT: sclera clear. MMM LUNGS: CTAB with normal effort CV: RRR with no murmurs ABD: +BS, soft, NT/ND EXT: no edema, calf tenderness. MSK: No joint redness or swelling including feet. NEURO: Normal movement of 4 extremities. Normal speech and coordination SKIN: No rashes or open wounds. PSYCH: normal mood and affect Psych Mental Status: other (Early dementia. ) Speech and Movement: speech clear Mood: congruent mood and other (Early dementia. ) Affect: normal affect DS: Data Vitals/I&O Vitals and I&O: Vital Signs Temperature 36.5 C 04/22/23 07:29 Temperature Source Tympanic 04/22/23 07:29 Pulse 58 L 04/22/23 07:29 Pulse Rhythm Regular 04/22/23 08:15 Pulse 105 H 04/19/23 21:40 Respiratory Rate 16 04/22/23 07:29 Respiratory Effort Normal, Non-Labored 04/22/23 08:15 Respiratory Depth Normal 04/22/23 08:15 Respiratory Pattern Normal 04/22/23 08:15 Blood Pressure 157/90 H 04/22/23 07:29 Blood Pressure Mean 102 04/19/23 21:30 Blood Pressure Position Supine 04/19/23 09:35 Pulse Oximetry 95 04/22/23 07:29 Oxygen Delivery Method Room Air 04/22/23 07:29 Oxygen Flow Rate 0 04/22/23 07:29 Pain Level 0 04/22/23 07:29 Comment Informed RN of abnormal VS 04/21/23 23:40 Intake & Output 04/21/23 04/21/23 04/22/23 11:59 23:59 11:59 Intake Total 660 / 960 300 / 960 100 / 100 Output Total 200 / 200 Balance 460 / 760 300 / 760 100 / 100 Weight 108 kg 109.7 kg Intake: IV 160 / 460 300 / 460 100 / 100 Oral 500 / 500 Output: Urine 200 / 200 Other: Urine Color Yellow Urine Appearance Clear Clear Clear Sediment Sediment Sediment Urine Odor Normal Normal Comment pt dry at this time Voiding Methods Urinal Diaper Diaper Incontinent Data Completed and Pending Labs on day of discharge: Labs from last 24 hours 04/22/23 04/21/23 04/19/23 06:05 14:55 19:48 Sodium 138 Potassium 3.9 Chloride 104 Carbon Dioxide 26.3 Anion Gap 7.7 BUN 21 H Creatinine 1.4 H Est GFR (CKD-EPI 2020) 53.40 Glucose 214 H Calcium 8.4 L Vancomycin Trough 13.2 Lyme Disease Antibody Negative Preliminary micro results at discharge 04/19/23 10:55 Blood Culture - Preliminary Blood NO GROWTH 48 HOURS 04/19/23 10:55 Blood Culture - Preliminary Blood NO GROWTH 48 HOURS PFSH All Active Problems Discharge planning issues (Acute) DVT prophylaxis (Acute) Parkinson's disease dementia (Acute) Sepsis (Acute) Acute hypokalemia (Acute) Hypomagnesemia (Acute) Polypharmacy (Acute) Advanced care planning/counseling discussion (Acute) Dependence on wheelchair (Acute) Closed fracture of greater trochanter of left femur (Acute 03/19/22) Pain, acute due to trauma (Acute) Ambulatory dysfunction (Acute) Periprosthetic hip fracture (Acute) Right kidney stone (Acute) Nocturia (Acute) Frequent falls (Acute) Progressive supranuclear palsy (Chronic) Anxiety (Chronic) Diabetic neuropathy (Acute) Urinary incontinence (Acute) Constipation (Acute) Memory loss (Acute) Gait abnormality (Acute) H/O esophagogastroduodenoscopy (Chronic ~04/29/19) Fever (Acute) Confusion (Acute) Right hip pain (Acute) GERD (gastroesophageal reflux disease) (Chronic) COPD (chronic obstructive pulmonary disease) (Chronic) S/P total knee replacement (Acute) S/P Arcadio fundoplication (without gastrostomy tube) procedure (Acute) x2 at [facility] Depression (Chronic) Obesity (Chronic) Hyperlipidemia (Acute) Insomnia (Acute) Diverticulosis (Acute) Sleep apnea (Acute) Osteoarthritis (Chronic) History of colonic polyps (Acute) History of kidney stones (Acute) History of cardiac cath (Chronic) Shoulder joint pain (Acute) Cerumen impaction (Acute) History of total hip arthroplasty (Acute) Incisional hernia (Acute) Inguinal hernia (Acute) Chronic low back pain (Acute) Unsteady gait (Acute) Difficulty swallowing (Acute) Behavioral and psychological symptoms of dementia (Acute) Diabetes mellitus (Chronic) Medical History Esophageal stricture GERD (gastroesophageal reflux disease) Hiatal hernia Palliative care patient Type 2 diabetes mellitus Surgical History History of colonoscopy History of lumbar laminectomy for spinal cord decompression History of shoulder surgery Total replacement of hip Family History Mother Dementia COPD (chronic obstructive pulmonary disease) Other Cancer Diabetes Heart disease Social History Smoking/Tobacco Use Status: Never Smoking risk assessment performed?: Yes Alcohol Intake: former Drug use: Never Substance use type: does not use Household members: spouse Housing: house Number of Children: 2 number of grandchildren: 3 Pets and animals: Yes Pets and animals: dog(s) What is your relationship status?: Panel score (0-1 are the most socially isolated patients): 1 What type of physical activity do you participate in: none Seatbelt use: always Do you feel safe at home: Yes Do you feel safe in your relationship?: Yes Time Spent with Patient Time Spent with Patient: 45-69 minutes Time was spent: preparing to see the patient(eg.review tests), ordering medications,tests, procedures, referring, communicating with other health vocational childcare teacher, indepentently interpreting results, counseling the patient and care coordination
[2023-04-22] MEDS: cefTRIAXone 2 GM/50 ML BAG IVPB (10:42)
--- NOTE | 2023-04-22 11:08 | PT.INTREAT ---
PT Notes Visit Reasons: Fever Inpatient Physical Therapy Treatment Note [facility] Date: 04/22/23 SUBJECTIVE: Valdemar states that he is going home today. He feels better and is ready to go. OBJECTIVE: [] BED MOBILITY/TRANSFERS Supine-sit: mod A of 1 Sit-stand: min A of 2 Stand-sit: CGA of 2 Bed-Chair: CGA Chair-bed: CGA GAIT Assistive Device: FWW Weight bearing: FWB Assist: CGA Distance: 5' Deviation: shortened stride length VITALS: closely monitored by nursing staff THEREX: performed a series of bed/chair ex. Supine AP x15 and SLR x8 ea. Seated LAQ x10, hip flex x15, hip ab/add x10. ASSESSMENT: tolerated session well. Pt incontinent of urine and required assistance to get cleaned up and changed. Requires assistance with bed mobility, and transfers onto to feet, however once he is standing, he does quite well. PLAN: Possible d/c to home with today. If still here in am, will continue to work on his strength to improve his functional mobility following PT POC TREATMENT CODE/TIME:27 min (74053g6 12 min, 40185a4 15 min)
--- NOTE | 2023-04-22 12:50 | PDOC.HHF2F_ITS ---
Home Health Referral Home Health Orders Clinical synopsis of why skilled professionals are needed: Patient presented with a fever with indications of sepsis; no source found. He completed 3 days of rocephin. His initially elevated WBC count normalized. At baseline he requires 1x assist for transfer. + Parkinson's disease. He is only ambulatory with standing/pivoting for transfers. He had become more weak and his (his eligibility worker) could no longer assist him adequately. He was evaluated by PT and showed improvement but still requiring 1x assist. Medical diagnosis necessitation home health referral: Febrile illness with further debilitation from his baseline. Glucose monitoring; Required insulin during hospitalization and not on insulin at home. Registered Nurse: Check all that apply Assess for exacerbation of medical condition, instruct patient/caregivers on signs and symptoms to report for early detection: Ordered Assess wound for signs and symptoms of infection, instruct on wound care and/or provide skilled wound care consisting of: Recent febrile illness. Physical Therapist: Check all that apply Increase strength & endurance for safe mobility at home: Ordered Occupational Therapist: Evaluate and treat for patient unable to perform ADL/IADL/self-care: Ordered Home Bound Status Requires the aid of supportive device (check all that apply): Other (Bed/chair bound except for standing and pivoting with 1 person assist. ) Assistance of another person (Describe assistance and medical necessity): Pt nonambulatory except for transfers. Describe why leaving home would require a considerable and taxing effort: Requires alternative accommodations: (Nonambulatory) Encounter Date and Reason: I certify that a FTF encounter for this patient was performed on April 22, 2023 and that such encounter was related to the primary reason the patient requires home health services. The encounter was conducted in the following manner: * By me as the certifying physician, PRODUCTION LINE SOLDERER, PA or * By an inpatient physician, PRODUCTION LINE SOLDERER or PA during an inpatient stay who communicated findings to me, Certification And Authentication I certify that I composed the above information based on my clinical judgment relating to this patient's medical condition and, if applicable, clinical findings communicated to me by the NPP or inpatient physician who performed the FTF encounter. Name of Provider that will be monitoring home health services: Manoj Pretty
--- NOTE | 2023-04-22 15:06 | PDOC.CMDIS ---
Date of service: 04/22/23 Time of Service: 15:06 LACE Index Scoring Tool Questions: Length of Stay (in days): 3 Was the patient admitted via the E.D.?: Yes Comorbidities: Diabetes w/o Complication, Chronic Pulmonary Disease and Dementia E.D. Visits: 4 Answers: Total Score: 15 Risk of Readmission: High Risk Care Management Discharge Plan Reason for Hospitalization: fever Discharge Plan: Valdemar is discharged home with new Home Health RN, PT and OT. He will follow up with his PCP and discharge plan of care as instructed. He is transported home by his via private vehicle. Patient/Family Education Needs: Review of discharge instructions including medications and follow up plan of care; discuss Ask Me Three. Services Needed at Discharge: Home Health Care Services
[2023-04-23 15:30] LABS: Anaplasma phagocytophilum Negative (Negative); B. miyamotoi PCR Negative (Negative); Babesia divergens/MO-1 Negative (Negative); Babesia duncani Negative (Negative); Babesia microti Negative (Negative); Ehrlichia chaffeensis Negative (Negative); Ehrlichia ewingii/canis Negative (Negative); Ehrlichia muris eauclairensis Negative (Negative)
[2023-04-25 09:15] LABS: 1,25-Dihydroxyvitamin D 27 pg/mL (18-64)
[2023-04-27 15:51] LABS: PTH-Related Peptide 0.4 pmol/L (< or = 4.2)
--- NOTE | 2023-04-27 16:53 | PT.INDS ---
Date of service: 04/24/23 PT Notes Visit Reasons: Fever Physical Therapy Inpatient Discharge Summary Date: 04/24/2023 Dates of service: 04/21/23 through 04/22/2023 This is a clinical summary of care provided for the duration of dates listed above. No charge was made in the completion of this documentation. Referring Doctor: Winnie Hay MD PT Orders: PT CONSULT: Limited ability Precautions:?Fall.? Standard.? Activity as tolerated. Patient Profile/Admitting Diagnosis: Valdemar is a 72-year-old male with past medical history significant for Parkinson's Disease, progressive supranuclear palsy, and bilateral total hip arthroplasties who presented to the ED on 04/19/2023 due to generalized weakness and fever.? Patient is admitted for management of sepsis, acute hypokalemia, hypomagnesemia, type II DM, COPD, and PAD dementia. PMHX: All Active Problems?(Updated 04/20/23 @ 01:48 by Abdifatah Yi) Discharge planning issues (Acute) DVT prophylaxis (Acute) Parkinson's disease dementia (Acute) Sepsis (Acute) Acute hypokalemia (Acute) Hypomagnesemia (Acute) Polypharmacy (Acute) Advanced care planning/counseling discussion (Acute) Dependence on wheelchair (Acute) Closed fracture of greater trochanter of left femur (Acute 03/19/22) Pain, acute due to trauma (Acute) Ambulatory dysfunction (Acute) Periprosthetic hip fracture (Acute) Right kidney stone (Acute) Nocturia (Acute) Frequent falls (Acute) Progressive supranuclear palsy (Chronic) Anxiety (Chronic) Diabetic neuropathy (Acute) Urinary incontinence (Acute) Constipation (Acute) Memory loss (Acute) Gait abnormality (Acute) H/O esophagogastroduodenoscopy (Chronic ~04/29/19) Fever (Acute) Confusion (Acute) Right hip pain (Acute) GERD (gastroesophageal reflux disease) (Chronic) COPD (chronic obstructive pulmonary disease) (Chronic) S/P total knee replacement (Acute) S/P Arcadio fundoplication (without gastrostomy tube) procedure (Acute[place] [place] [facility] [place] Obesity (Chronic) Hyperlipidemia (Acute) Insomnia (Acute) Diverticulosis (Acute) Sleep apnea (Acute) Osteoarthritis (Chronic) History of colonic polyps (Acute) History of kidney stones (Acute) History of cardiac cath (Chronic) Shoulder joint pain (Acute) Cerumen impaction (Acute) History of total hip arthroplasty (Acute) Incisional hernia (Acute) Inguinal hernia (Acute) Chronic low back pain (Acute) Unsteady gait (Acute) Difficulty swallowing (Acute) Behavioral and psychological symptoms of dementia (Acute) Diabetes mellitus (Chronic) Medical History? Esophageal stricture GERD (gastroesophageal reflux disease) Hiatal hernia Palliative care patient Type 2 diabetes mellitus Surgical History? History of colonoscopy History of lumbar laminectomy for spinal cord decompression History of shoulder surgery Total replacement of hip Social History/Home Situation: Lives with in a private home with a ramp to enter.? Modified independent with all mobility ADL's using 4-wheeled walker prior to admission.? Equipment Owned/DME: Hospital bed,? wheelchair, bedside commode, shower chair,? FWW,? 4-wheeled walker Subjective: NT. See most recent SAS DEVELOPER ANALYST notes. Objective: NT. See most recent SAS DEVELOPER ANALYST notes. General Observation: NT. See most recent SAS DEVELOPER ANALYST notes. Mental Status: NT. See most recent SAS DEVELOPER ANALYST notes. Pain: NT. See most recent SAS DEVELOPER ANALYST notes. ROM: Right Upper Extremity: ? Shoulder Flexion WFL. Shoulder abduction WFL. Elbow flexion WFL. Wrist flexion WFL. Functional opening and closing of hand WFL. Left Upper Extremity:? Shoulder Flexion WFL. Shoulder abduction WFL. Elbow flexion WFL. Wrist flexion WFL. Functional opening and closing of hand WFL. Right Lower Extremity: Hip flexion WFL. Hip abduction WFL. Knee flexion WFL. Ankle dorsiflexion WFL. Ankle plantarflexion WFL. Left Lower Extremity: Hip flexion WFL. Hip abduction NT. Knee flexion WFL. Ankle dorsiflexion WFL. Ankle plantarflexion WFL. Strength: Right Upper Extremity: Shoulder flexors 4-/5. Shoulder abductors 4-/5. Elbow flexors 4-/5. Elbow extensors 4-/5. Scientific Glass Blower strong. Left Upper Extremity: Shoulder flexors 4-/5. Shoulder abductors 4-/5. Elbow flexors 4-/5. Elbow extensors 4-/5. Scientific Glass Blower strong. Right Lower Extremity: Hip flexors 4-/5. Hip abductors 4-/5. Knee flexors 4-/5. Knee extensors 4-/5. Ankle dorsiflexors 4-/5. Ankle plantarflexors 4-/5. Left Lower Extremity: Hip flexors 4-/5. Hip abductors 4-/5. Knee flexors 4-/5. Knee extensors 4-/5. Ankle dorsiflexors 4-/5. Ankle plantarflexors 4-/5. BED MOBILITY/TRANSFERS? Supine-sit: mod A of 1? Sit-stand: min A of 2 ? Stand-sit: CGA of 2? Bed-Chair: CGA? Chair-bed: CGA ? GAIT? Assistive Device: FWW? Weight bearing: FWB Assist: CGA ? Distance:? 5' ? Deviation: shortened stride length ? VITALS:? closely monitored by nursing staff ? Balance: Static Sitting: Good Dynamic Sitting: Fair Static Standing: Fair Dynamic Standing: Poor ASSESSMENT: Patient requires the use of FWW for short distance (up to 5 steps today) with minimal assist.? Patient has been wheelchair-bound but appears that he could do more with proper cueing.? Potentially may be able to progress transfer/ambulation independence distance using the FWW with SNF placement. Patient presents with clinical signs and symptoms consistent with current/admitting diagnoses that have resulted to mobility limitations, gait instability, generalized weakness, and overall ADL decline as demonstrated by the following impairment level findings: 1.? Decreased strength to left LE major muscle groups (chronic) 2.? Impaired sitting/standing balance (chronic) 3.? Impaired activity tolerance (chronic) Impairments are contributing to the following functional limitations: 1.? Decline in bed mobility skills (chronic) 2.? Decline in transfer skills (chronic) 3.? Difficulty with ambulation without assistive device and physical assistance (chronic) 4.? Increased completion time for mobility ADL performance (chronic) 5.? Increased risk for falls (chronic) 6.? Difficulty with managing steps alone safely (chronic) Goals: Goals X1 week 1. Supine-Sit independent NOT MET 2. Sit-Supine independent NOT MET 3. Sit-Stand independent NOT MET 4. Stand-Sit independent with FWW NOT MET 5. Bed-Chair independent with FWW NOT MET 6. Chair-Bed independent with FWW NOT MET 7. Independent gait on level surface with use of FWW for at least 15 feet without report of pain nor dyspnea NOT MET 8.?Fair static and dynamic standing balance/tolerance NOT MET DISCHARGE RECOMMENDATIONS: [] ? Home with no services [] [] ? Home with services [specify] [] ? Home with outpatient PT [] [X] ? SNF for continued rehabilitation.? Patient will benefit from short-term rehabilitation at a shelter facility for continued skilled physical therapy services in order to progress mobility level, strength, and balance in preparation for a safe discharge to home. [] ? Retirement Care [] [] ? SNF versus LTC based on ability to participate and progress [] TREATMENT CODE/TIME: GA Thank you for the opportunity to participate in the care of this patient. Trinity Poon PT, DPT, CLT [facility] [place], [place]
== END 2023-04-22 11:48 | disposition home health service (06) | DRG 872 ==
LOC: ER 20:32 → MS 21:52
PROVIDERS: Family Medicine; Physician Assistant; Student in an Organized Health Care Education/Training Program; Admitting Provider Family Medicine; Emergency Provider Registered Nurse Emergency; PCP Nurse Practitioner Family; Visit Provider Family Medicine
DX: A41.9 Sepsis, unspecified organism (principal); F02.818 Dementia in other diseases classified elsewhere, unspecified severity, with other behavioral disturbance; G23.1 Progressive supranuclear ophthalmoplegia [Steele-Richardson-Olszewski]; E87.6 Hypokalemia; E83.42 Hypomagnesemia; J44.9 Chronic obstructive pulmonary disease, unspecified; G20 Parkinson's disease; R53.1 Weakness; Z99.3 Dependence on wheelchair; E11.40 Type 2 diabetes mellitus with diabetic neuropathy, unspecified; K21.9 Gastro-esophageal reflux disease without esophagitis; Z79.899 Other long term (current) drug therapy; E66.9 Obesity, unspecified; Z68.33 Body mass index [BMI] 33.0-33.9, adult; E78.5 Hyperlipidemia, unspecified; G47.00 Insomnia, unspecified; G47.30 Sleep apnea, unspecified; K57.90 Diverticulosis of intestine, part unspecified, without perforation or abscess without bleeding; G89.29 Other chronic pain; M54.50 Low back pain, unspecified; R26.81 Unsteadiness on feet; R13.10 Dysphagia, unspecified
CPT/HCPCS: 36410; 36415; 71275; 80048; 80053; 82550; 82962; 83690; 84145; 87040; 87081; 87637; 87798; 93005; 96365; 96366; 96367; 96368; 96375; 97110; 97162; 97530; 99291; J1650; 71045; 74177; 76705; 80202; 81003; 81015; 82310; 82397; 82652; 83605; 83735; 84100; 85025; 86618; 93010; 99232; 99239; J0131; J0780; J1885; J2405; J3480; J3490

== ENCOUNTER 2023-04-24 15:24 | Outpatient (REF) | payer MEDICARE, SELFPAY ==
[2023-04-24 17:26] LABS: Abs Immature Grans 0.09 10^3/uL (0.0-0.06); Absolute Basophil Count 0.04 10^3/uL (0.0-0.2); Absolute Eosinophil Count 0.61 10^3/uL (0.0-0.7); Absolute Lymphocyte Count 1.83 10^3/uL (1.2-3.4); Absolute Monocyte Count 0.57 10^3/uL (0.1-0.8); Absolute Neutrophil Count 3.99 10^3/uL (1.2-6.7); Basophils % 0.6; Eosinophils % 8.6; HCT 44.1 % (40.0-50.0); HGB 14.7 g/dL (13.5-17.5); Immature Grans % 1.3; Lymphocytes % 25.7; MCH 30.5 pg (27.0-33.0); MCHC 33.3 % (32.0-36.0); MCV 92 fL (80-95); Neutrophils % 55.8; Platelet Count 279 10^3/uL (130-400); RBC 4.82 10^6/uL (4.36-5.78); RDW 12.5 % (11.8-14.1); RDW-SD 41.8 fL; WBC 7.13 10^3/uL (4.4-10.8)
[2023-04-24 17:35] LABS: BUN 20 mg/dL (7-18); CREATININE 1.4 mg/dL (0.70-1.30); Calcium 8.7 mg/dL (8.5-10.1); Chloride 104 mmol/L (98-107); Glucose 218 mg/dL (74-106); Potassium 4.1 mmol/L (3.5-5.1); Sodium 141 mmol/L (136-145)
== END 2023-04-24 15:25 | disposition home or self-care (01) ==
LOC: LBN 15:24
PROVIDERS: PCP Nurse Practitioner Family; Visit Provider Family Medicine
DX: E87.6 Hypokalemia (principal); E11.9 Type 2 diabetes mellitus without complications; G20 Parkinson's disease; R53.1 Weakness
CPT/HCPCS: 80048; 85025

== ENCOUNTER → 2023-04-26 07:51 | Outpatient (BNVA) | payer MEDICARE, SELFPAY | PROVIDERS: PCP Nurse Practitioner Family; Visit Provider Psychiatry & Neurology Neurology | DX: G23.1 Progressive supranuclear ophthalmoplegia [Steele-Richardson-Olszewski] (principal); R41.3 Other amnesia; R13.10 Dysphagia, unspecified; R29.6 Repeated falls; R35.0 Frequency of micturition; K59.00 Constipation, unspecified; R53.83 Other fatigue; G47.33 Obstructive sleep apnea (adult) (pediatric); E11.40 Type 2 diabetes mellitus with diabetic neuropathy, unspecified; I10 Essential (primary) hypertension | CPT/HCPCS: 99442 ==

== ENCOUNTER 2023-05-01 14:51 | Outpatient (REF) | payer MEDICARE, SELFPAY ==
[2023-05-01 17:27] LABS: Abs Immature Grans 0.07 10^3/uL (0.0-0.06); Absolute Basophil Count 0.05 10^3/uL (0.0-0.2); Absolute Eosinophil Count 0.52 10^3/uL (0.0-0.7); Absolute Monocyte Count 0.79 10^3/uL (0.1-0.8); Absolute Neutrophil Count 4.54 10^3/uL (1.2-6.7); Basophils % 0.6; Eosinophils % 6.6; HCT 43.1 % (40.0-50.0); HGB 14.4 g/dL (13.5-17.5); Immature Grans % 0.9; Lymphocytes % 24.1; MCH 30.4 pg (27.0-33.0); MCHC 33.4 % (32.0-36.0); MCV 91 fL (80-95); MPV 9.2 fL (8.0-11.0); Neutrophils % 57.8; Platelet Count 280 10^3/uL (130-400); RBC 4.73 10^6/uL (4.36-5.78); RDW 12.4 % (11.8-14.1); RDW-SD 41.2 fL; WBC 7.87 10^3/uL (4.4-10.8)
== END 2023-05-01 14:52 | disposition home or self-care (01) ==
LOC: LBN 14:51
PROVIDERS: PCP Nurse Practitioner Family; Visit Provider Family Medicine
DX: A41.9 Sepsis, unspecified organism (principal)
CPT/HCPCS: 85025

== ENCOUNTER 2023-05-19 07:20 | Emergency (ER) | payer MEDICARE, SELFPAY ==
--- NOTE | 2023-05-19 07:15 | RT.EKG_ITS ---
APPROVED REPORT Exam: Resting ECG Reason for Exam: Dyspnea Patient Location: E HR:96 bpm ECG Measurements Heart Rate 96 AXIS [place] 207 P 33 QRSd 92 QRS -19 QT 358 T 32 QTc 452 Conclusion Sinus rhythm...normal P axis, V-rate 60- 99 Borderline prolonged NY interval...NY >207, V-rate 91-120
[2023-05-19 07:19] VITALS: BP 159/107; PULSE 95; RESP 20; TEMP 37.1; O2SAT 97
[2023-05-19 07:26] VITALS: O2SAT 94
--- NOTE | 2023-05-19 07:31 | ED.GENADUL_ITS ---
Discharge Plan Disposition Patient Disposition: Home Discharge Details Clinical Impression: COPD (chronic obstructive pulmonary disease) Primary Care Provider: Awilda Rollins ED Provider: Juan Capellan Home Meds and New Rx's Prescriptions: New albuterol sulfate 90 mcg/actuation HFA aerosol inhaler 2 puff inhalation Q6H PRN (Reason: shortness of breath or wheezing) Qty: 8.5 0RF Continued sucralfate 1 gram tablet 1 g PO TID docusate sodium 100 mg tablet 200 mg PO DAILY Qty: 180 0RF Rx Instructions: AT HS fluticasone propionate [Flonase Allergy Relief] 50 mcg/actuation spray,suspension 1 spray intranasal DAILY Rx Instructions: administer into each nostril propranolol 20 mg tablet 20 mg PO BID Qty: 180 3RF gabapentin 300 mg capsule 900 mg PO TID fluoxetine 40 mg capsule 40 mg PO DAILY acetaminophen 500 mg capsule 500 mg PO Q6H PRN methylphenidate HCl 10 mg tablet 10 mg PO .COMPLEX MDD 20mg Qty: 60 0RF Rx Instructions: 10 mg orally once daily in am; ok to take 2nd at noon if still overly fatigued; carbidopa-levodopa 25-250 mg tablet 1 tab PO TID Qty: 360 3RF Rx Instructions: WITH MEALS (0800,1200,1700) rivastigmine tartrate 3 mg capsule See Rx Instructions .ROUTE .COMPLEX Qty: 180 3RF Dose Instruction: Take 1 capsule by mouth twice daily Rx Instructions: Take 1 capsule by mouth twice daily metformin 500 mg tablet 500 mg PO BID famotidine 20 mg tablet 20 mg PO DAILY oxybutynin chloride 5 mg tablet 5 mg PO BID glipizide 10 MG tablet 10 mg PO DAILY polyethylene glycol 3350 17 gram Powder In Packet 17 g PO DAILY PRN (Reason: Constipation) pantoprazole 40 mg tablet,delayed release (DR/EC) 40 mg PO BID Patient Comments: TAKE ONE TABLET BY MOUTH TWICE A DAY Discharge Instructions Instructions: COPD (Chronic Obstructive Pulmonary Disease) (ED) Additional Instructions: Your tests did not show any acute issues to explain your sob today. I suspect this is from your underlying COPD, which we are giving you an inhaler for. Please call and follow up with your doctor for further evaluation. Discharge Data Discharge Date/Time-TO BE ENTERED AT DEPARTURE: 05/19/23 12:07 Medical Decision Making <Brigido Vidales MD - Last Filed: 05/19/23 23:07> Patient with a history of Parkinson's and also it appears as though he has memory impairment and possibly diagnosis of dementia. Will confirm with family. In terms of respiratory distress he is not in any. On minimal oxygen s upplementation he has an oxygen saturation of 99%. Have discontinued oxygen to see what his baseline air saturation is here in the emergency department. He has a history of previous pneumonia, we will work him up for this with a chest x-ray. Heart failure is also a consideration although he has no signs of lower extremity edema and no rails on clinical exam. Patient arrived shortly before physician signout. Will be endorsed to the morning attending likely with much of the work-up still pending. Hopefully the family will arrive before then to give more history. Differential Diagnosis Differential Diagnosis: Pneumonia/heart failure Medical Records Medical records reviewed: Yes I reviewed the patient's medical records. HPI <Brigido Vidales MD - Last Filed: 05/19/23 23:07> General Date/Time Provider Initiated Documentation: 05/19/23 07:26 . Information obtained by: patient and EMS . HPI Narrative: Patient arrives via EMS. They were called by the family reports of shortness of breath for 2 days. Last night and then the night before. Patient with no known pulmonary disease. He has a history of parkinsonian is. Also diabetes. Patient denied a history of COPD but chart says that he does have his history of COPD. Per EMS he was found at home with a room air saturation of approximately 90% and responded well to nasal cannula oxygen. Respirations decreased patient became more alert. Patient however still answering questions and short phrases. Does not appear to have full grasp of his medical history. Per nurse patient was recently admitted to our facility for pneumonia. At this time patient's not complaining of any pain, any chest pain and does not appear to be in any respiratory distress. Patient only offers limited history will wait for the family to get further history. Related Data Home Medications Medication Instructions Recorded Confirmed glipizide 10 mg tablet 10 mg PO DAILY 04/20/16 05/19/23 gabapentin 300 mg capsule 900 mg PO TID 04/17/19 05/19/23 fluoxetine 40 mg capsule 40 mg PO DAILY 03/24/21 05/19/23 sucralfate 1 gram tablet 1 g PO TID 08/25/21 05/19/23 famotidine 20 mg tablet 20 mg PO DAILY 12/21/21 05/19/23 metformin 500 mg tablet 500 mg PO BID 12/21/21 05/19/23 docusate sodium 100 mg tablet 200 mg PO DAILY #180 tabs 02/23/22 05/19/23 oxybutynin chloride 5 mg tablet 5 mg PO BID 02/23/22 05/19/23 pantoprazole 40 mg tablet,delayed 40 mg PO BID 03/21/22 05/19/23 release acetaminophen 500 mg capsule 500 mg PO Q6H PRN 04/06/22 05/19/23 fluticasone propionate 50 1 spray intranasal DAILY 08/24/22 05/19/23 mcg/actuation nasal spray,suspension (Flonase Allergy Relief) propranolol 20 mg tablet 20 mg PO BID #180 tabs 10/26/22 05/19/23 carbidopa 25 mg-levodopa 250 mg 1 tab PO TID #360 tabs 01/25/23 05/19/23 tablet methylphenidate HCl 10 mg tablet 10 mg PO .COMPLEX #60 tabs 01/25/23 05/19/23 rivastigmine tartrate 3 mg capsule See Rx Instructions .Route 01/25/23 05/19/23 .COMPLEX #180 caps polyethylene glycol 3350 17 gram 17 g PO DAILY PRN Constipation 04/20/23 05/19/23 oral powder packet albuterol sulfate 90 mcg/actuation 2 puff inhalation Q6H PRN 05/19/23 aerosol inhaler shortness of breath or wheezing #8.5 grams Previous Rx's Medication Instructions Recorded docusate sodium 100 mg tablet 200 mg PO DAILY #180 tabs 02/23/22 propranolol 20 mg tablet 20 mg PO BID #180 tabs 10/26/22 carbidopa 25 mg-levodopa 250 mg 1 tab PO TID #360 tabs 01/25/23 tablet methylphenidate HCl 10 mg tablet 10 mg PO .COMPLEX #60 tabs 01/25/23 rivastigmine tartrate 3 mg capsule See Rx Instructions .Route 01/25/23 .COMPLEX #180 caps albuterol sulfate 90 mcg/actuation 2 puff inhalation Q6H PRN 05/19/23 aerosol inhaler shortness of breath or wheezing #8.5 grams Allergies Allergy/AdvReac Type Severity Reaction Status Date / Time bupropion HCl AdvReac Intermediate shakey/metal Verified 04/26/23 08:55 [From Wellbutrin] taste/off balance Penicillins AdvReac Intermediate Skin Rash Verified 04/26/23 08:55 foam tape Allergy Intermediate Skin Rash Uncoded 04/26/23 08:55 General Stated Complaint: SOB LORA: 3 Review of Systems <Brigido Vidales MD - Last Filed: 05/19/23 23:07> Narrative: Limited review of systems: We will try to obtain from family PFSH <Brigido Vidales MD - Last Filed: 05/19/23 23:07> All Active Problems (Updated 05/19/23 @ 11:05 by Juan Capellan MD) COPD (chronic obstructive pulmonary disease) (Chronic) Shoulder pain, left (Acute) Hernia (Chronic) Parkinsons disease (Chronic) Actinic keratosis (Acute) Chest discomfort (Acute) Paraesophageal hernia (Acute) Nephrolithiasis (Chronic) Fatty liver (Acute) Fracture, femur (Acute) Hypokalemia (Acute) Parkinson's disease dementia (Acute) Polypharmacy (Acute) Advanced care planning/counseling discussion (Acute) Dependence on wheelchair (Acute) Closed fracture of greater trochanter of left femur (Acute 03/19/22) Pain, acute due to trauma (Acute) Ambulatory dysfunction (Acute) Periprosthetic hip fracture (Acute) Right kidney stone (Acute) Nocturia (Acute) Frequent falls (Acute) Progressive supranuclear palsy (Chronic) Anxiety (Chronic) Diabetic neuropathy (Acute) Urinary incontinence (Acute) Constipation (Acute) Memory loss (Acute) Gait abnormality (Acute) H/O esophagogastroduodenoscopy (Chronic ~04/29/19) Fever (Acute) Confusion (Acute) Right hip pain (Acute) GERD (gastroesophageal reflux disease) (Chronic) COPD (chronic obstructive pulmonary disease) (Chronic) S/P total knee replacement (Acute) S/P Arcadio fundoplication (without gastrostomy tube) procedure (Acute) x2 at [facility] [place] Depression (Chronic) Obesity (Chronic) Hyperlipidemia (Acute) Insomnia (Acute) Diverticulosis (Acute) Sleep apnea (Acute) Osteoarthritis (Chronic) History of colonic polyps (Acute) History of kidney stones (Acute) History of cardiac cath (Chronic) Shoulder joint pain (Acute) Cerumen impaction (Acute) History of total hip arthroplasty (Acute) Incisional hernia (Acute) Inguinal hernia (Acute) Chronic low back pain (Acute) Unsteady gait (Acute) Difficulty swallowing (Acute) Behavioral and psychological symptoms of dementia (Acute) Diabetes mellitus (Chronic) Medical History Esophageal stricture [place]' lung GERD (gastroesophageal reflux disease) Hiatal hernia Palliative care patient Type 2 diabetes mellitus Surgical History History of colonoscopy History of lumbar laminectomy for spinal cord decompression History of shoulder surgery Total replacement of hip Family History Mother Dementia COPD (chronic obstructive pulmonary disease) Other Cancer Diabetes Heart disease Social History Smoking/Tobacco Use Status: Never Smoking risk assessment performed?: Yes Alcohol Intake: former Drug use: Never Substance use type: does not use Household members: spouse Housing: house Number of Children: 2 number of grandchildren: 3 Pets and animals: Yes Pets and animals: dog(s) What is your relationship status?: Panel score (0-1 are the most socially isolated patients): 1 What type of physical activity do you participate in: none Seatbelt use: always Do you feel safe at home: Yes Do you feel safe in your relationship?: Yes Exam <Brigido Vidales MD - Last Filed: 05/19/23 23:07> Narrative Exam Narrative: GENERAL APPEARANCE NAD, , obese no cyanosis, pallor, or diaphoresis. EYES lids/conjunctiva normal. EARS/NOSE/THROAT Mucous membranes moist, HEAD/NECK normocephalic atraumatic, no facial trauma, neck is supple. RESPIRATORY respiratory effort normal, no tripod position, no accessory muscle use. Lungs clear to auscultation without rhonchi, wheezes, rales CARDIAC Regular rate and rhythm, no edema. ABDOMINAL Soft, ND/NT. No evidence of fluid wave. No pulsatile masses on exam, rebound tenderness, Wilson sign or pain over Mcburney's point. MUSCLES/EXTREMITIES No abnormal range of motion, no swelling. SKIN Warm, pink and dry. No rashes, dermatoses, petechiae or lesions. NEUROLOGICAL patient answers with short responses, appears slightly confused. No lateralizing deficits PSYCH . Judgement/competence is in appropriate Course <Brigido Vidales MD - Last Filed: 05/19/23 23:07> Vital Signs Vital signs: Vital Signs Temperature 37.1 C 05/19/23 07:19 Pulse 95 H 05/19/23 07:19 Respiratory Rate 20 05/19/23 07:19 Blood Pressure 159/107 H 05/19/23 07:19 Pulse Oximetry 97 05/19/23 07:19 Temperature 37.1 C 05/19/23 07:19 Temperature Source Tympanic 05/19/23 07:19 Pulse 95 H 05/19/23 07:19 Respiratory Rate 20 05/19/23 07:19 Blood Pressure 159/107 H 05/19/23 07:19 Blood Pressure Position Supine 05/19/23 07:19 Pulse Oximetry 94 05/19/23 07:26 Oxygen Delivery Method Room Air 05/19/23 07:26 Oxygen Flow Rate 0 05/19/23 07:26 <Juan Capellan MD - Last Filed: 05/19/23 14:07> Received pt in sign out pending work-up. Re-eval of pt, resting comfortably, on RA at 94%. Does have some crackles in bases, BNP normal, so ?pna. Waiting on cxr read. He has hx parkinsons, wheelchair dependent. Reevaluation(s) Initial Evaluation: Pt taken off O2, sats remaining in low 90's. Given hx, pt sent for CTA chest as well, which did not show any acute issues. Although he denies any underlying lung dz, noted to have COPD on problem list, as well as during his last hospital admission. Will provide rx for albuterol inhaler. Family here, sounds like having some difficulty managing pt at home. I called and spoke to pcp office about his visit, as well as concerns of family at home, and reasonable for them to have close f/u with pt. Sign Out <Brigido Vidales MD - Last Filed: 05/19/23 23:07> Sign Out Data: Sign Out Comment: Patient with undifferentiated shortness of breath. Work-up has been initiated. History is limited. Signed out to morning attending to continue the patient said initial evaluation. He is stable on room air with a saturation of 94%. Last updated by Brigido Vidales MD at 05/19/23 08:00
[2023-05-19 08:09] LABS: Abs Immature Grans 0.06 10^3/uL (0.0-0.06); Absolute Basophil Count 0.04 10^3/uL (0.0-0.2); Absolute Lymphocyte Count 1.58 10^3/uL (1.2-3.4); Absolute Monocyte Count 1.42 10^3/uL (0.1-0.8); Basophils % 0.3; Eosinophils % 0.9; HCT 40.5 % (40.0-50.0); HGB 13.8 g/dL (13.5-17.5); Immature Grans % 0.4; Lymphocytes % 10.6; MCH 30.3 pg (27.0-33.0); MCHC 34.1 % (32.0-36.0); MCV 89 fL (80-95); MPV 8.4 fL (8.0-11.0); Monocytes % 9.5; Neutrophils % 78.3; Platelet Count 215 10^3/uL (130-400); RBC 4.56 10^6/uL (4.36-5.78); RDW 12.6 % (11.8-14.1); WBC 14.94 10^3/uL (4.4-10.8)
[2023-05-19 08:11] LABS: Absolute Eosinophil Count 0.13 10^3/uL (0.0-0.7)
[2023-05-19 08:30] LABS: ALT 22 U/L (16-63); AST 12 U/L (15-37); Albumin 3.4 g/dL (3.4-5.0); Alkaline Phosphatase 117 U/L (46-116); Anion Gap 10.4 mmol/L (3-11); BUN 14 mg/dL (7-18); CO2 25.6 mmol/L (21.0-32.0); CREATININE 1.1 mg/dL (0.70-1.30); Calcium 8.4 mg/dL (8.5-10.1); Chloride 101 mmol/L (98-107); Estimated GFR 71.32 (mL/min/1.73m2); Glucose 235 mg/dL (74-106); Magnesium 1.6 mg/dL (1.8-2.4); NT-proBNP 197 pg/mL (<300); Potassium 3.8 mmol/L (3.5-5.1); Sodium 137 mmol/L (136-145); Total Protein 7.2 g/dL (6.4-8.2)
--- NOTE | 2023-05-19 08:52 | DI.RAD_ITS ---
Exam(s) XR PORTABLE CHEST AP EXAM: XR PORTABLE CHEST AP CLINICAL HISTORY: Dyspnea TECHNIQUE: 2D digital imaging was performed. COMPARISON: CR XR PORTABLE CHEST AP from 04/19/[address] CHEST PE CTA from 04/19/2023 FINDINGS: LUNGS: Clear. No pleural abnormality seen. HEART: Normal size. AORTA: Normal diameter. BONES: Degenerative changes in the spine. Degenerative and postsurgical changes of the shoulders. Soft tissues: Unremarkable. IMPRESSION: No acute findings. DATA REPOSITORY: RADIATION DOSE DELIVERED:
--- NOTE | 2023-05-19 09:15 | DI.CT_ITS ---
Exam(s) CT CHEST PE CTA EXAM: CT CHEST PE CTA CLINICAL HISTORY: hypoxia. TECHNIQUE: Imaging Protocol: Axial CT angiography was performed with multi-slice acquisition and mu lti-planar reconstructions as well as axial, coronal and sagittal MIP reconstructions. CONTRAST MATERIAL: Intravenous: Omnipaque 350 Contrast volume:100 ml COMPARISON: CT CT ABDOMEN PELVIS W from 04/19/2023 CR XR PORTABLE CHEST AP from 05/19/2023 FINDINGS: Exam is limited by respiratory motion. Pulmonary Arteries: No evidence of filling defect to suggest pulmonary emboli. Tracheobronchial tree: Patent where visualized. Mediastinum and Melvina: No dominant adenopathy or fluid collection. Pulmonary parenchyma: No consolidation or dominant measurable mass. Expiratory changes. Pleura: No effusion or pneumothorax. Heart: The heart is not dilated. No coronary artery calcifications are seen. Aorta: Thoracic aorta non-dilated. No aneurysm. No dissection. Mild atherosclerotic changes. Upper abdomen: Fatty liver. Cholelithiasis. Small hiatal hernia. Bones: Degenerative changes in the spine with flowing osteophytes. Tubes, Catheters, and Lines: None IMPRESSION: No evidence of pulmonary embolism. No acute abnormality RADIATION DOSE DELIVERED: 554.91mGy.cm Total DLP DATA REPOSITORY: All CT scans at this facility are submitted to the National Radiology Data Registry (NRDR) Dose Index Registry (DIR) with the [employer] (A[employer]). RADIATION OPTIMIZATION: All CT scans at this facility use at least one of these dose optimization te chniques: automated exposure control; mA and/or kV adjustment per patient size (includes targeted exa ms where dose is matched to clinical indication); or iterative reconstruction.
[2023-05-19 10:21] VITALS: RESP 22
[2023-05-19] MEDS: Omnipaque 350 MG/ML 100 ML BTL IJ (10:30)
[2023-05-19] MEDS: Normal Saline - Diluent 50 ML VIAL IJ (10:31)
[2023-05-19] MEDS: Normal Saline Flush 10 ML SYR IVP (10:33)
[2023-05-19 12:09] VITALS: BP 177/90; PULSE 103; RESP 23; TEMP 37; O2SAT 95
== END 2023-05-19 12:07 | disposition home or self-care (01) ==
PROVIDERS: Emergency Medicine; Emergency Provider Emergency Medicine; PCP Nurse Practitioner Family
DX: J44.9 Chronic obstructive pulmonary disease, unspecified (principal); R06.02 Shortness of breath; G20 Parkinson's disease; E11.9 Type 2 diabetes mellitus without complications
CPT/HCPCS: 71275; 80053; 93005; 99285; 71045; 83735; 83880; 85025; 93010; 99284; J3490

== ENCOUNTER 2023-05-27 18:30 | Inpatient (IN) | payer MEDICARE, SELFPAY ==
[2023-05-27] VITALS (24 sets, daily range): BP systolic 135–167; BP diastolic 81–95; PULSE 95–105; RESP 20–23; TEMP 37.9–38.1; O2SAT 89–97
--- NOTE | 2023-05-27 18:26 | ED.GENADUL_ITS ---
Discharge Plan Disposition Patient Disposition: Admit to [facility] Condition: Serious Discharge Details Clinical Impression: Fever, Altered mental status Primary Care Provider: Awilda Rollins ED Provider: Juan Ragsdale [facility] and New Rx's Prescriptions: No Action sucralfate 1 gram tablet 1 g PO TID docusate sodium 100 mg tablet 200 mg PO DAILY Qty: 180 0RF Rx Instructions: AT HS fluticasone propionate [Flonase Allergy Relief] 50 mcg/actuation spray,suspension 1 spray intranasal DAILY Rx Instructions: administer into each nostril propranolol 20 mg tablet 20 mg PO BID Qty: 180 3RF gabapentin 300 mg capsule 900 mg PO TID fluoxetine 40 mg capsule 40 mg PO DAILY acetaminophen 500 mg capsule 500 mg PO Q6H PRN methylphenidate HCl 10 mg tablet 10 mg PO .COMPLEX MDD 20mg Qty: 60 0RF Rx Instructions: 10 mg orally once daily in am; ok to take 2nd at noon if still overly fatigued; carbidopa-levodopa 25-250 mg tablet 1 tab PO TID Qty: 360 3RF Rx Instructions: WITH MEALS (0800,1200,1700) rivastigmine tartrate 3 mg capsule See Rx Instructions .ROUTE .COMPLEX Qty: 180 3RF Dose Instruction: Take 1 capsule by mouth twice daily Rx Instructions: Take 1 capsule by mouth twice daily ofloxacin 0.3 % drops 10 drp otic (ear) DAILY 7 Days Qty: 5 0RF metformin 500 mg tablet 500 mg PO BID famotidine 20 mg tablet 20 mg PO DAILY oxybutynin chloride 5 mg tablet 5 mg PO BID glipizide 10 MG tablet 10 mg PO DAILY polyethylene glycol 3350 17 gram Powder In Packet 17 g PO DAILY PRN (Reason: Constipation) albuterol sulfate 90 mcg/actuation HFA aerosol inhaler 2 puff inhalation Q6H PRN (Reason: shortness of breath or wheezing) Qty: 8.5 0RF pantoprazole 40 mg tablet,delayed release (DR/EC) 40 mg PO BID Patient Comments: TAKE ONE TABLET BY MOUTH TWICE A DAY Medical Decision Making Patient sent in from home with fever and altered mental status. Per EMS as well as last palliative care note patient is supposed to be entering hospice later this week. I called and spoke to his Harriet and confirmed. We then discussed goals of care here. 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 We will leave the IV in place as needed. He will be maintained on oxygen and otherwise admitted for comfort measures. Medical Records Medical records reviewed: Yes I reviewed the patient's medical records. HPI General Mode of arrival: EMS . Date/Time Provider Initiated Documentation: 05/27/23 18:44 . Limitations to Documentation: altered mental status . Information obtained by: family, EMS and RN notes reviewed . HPI Narrative: Patient presents to ED from home with altered mental status and fever. Patient was seen at [facility] earlier today for ear pain. Over the course of the day he has become more confused and lethargic. Per EMS patient is supposed to be e ntering into hospice this coming week. I reviewed the last palliative care note and confirmed with this. Patient does awaken to voice and does know where he is but is not able to provide any history. He is not complaining of pain currently. Related Data Home Medications Medication Instructions Recorded Confirmed glipizide 10 mg tablet 10 mg PO DAILY 04/20/16 05/25/23 gabapentin 300 mg capsule 900 mg PO TID 04/17/19 05/25/23 fluoxetine 40 mg capsule 40 mg PO DAILY 03/24/21 05/25/23 sucralfate 1 gram tablet 1 g PO TID 08/25/21 05/25/23 famotidine 20 mg tablet 20 mg PO DAILY 12/21/21 05/25/23 metformin 500 mg tablet 500 mg PO BID 12/21/21 05/25/23 docusate sodium 100 mg tablet 200 mg PO DAILY #180 tabs 02/23/22 05/25/23 oxybutynin chloride 5 mg tablet 5 mg PO BID 02/23/22 05/25/23 pantoprazole 40 mg tablet,delayed 40 mg PO BID 03/21/22 05/25/23 release acetaminophen 500 mg capsule 500 mg PO Q6H PRN 04/06/22 05/25/23 fluticasone propionate 50 1 spray intranasal DAILY 08/24/22 05/25/23 mcg/actuation nasal spray,suspension (Flonase Allergy Relief) propranolol 20 mg tablet 20 mg PO BID #180 tabs 10/26/22 05/25/23 carbidopa 25 mg-levodopa 250 mg 1 tab PO TID #360 tabs 01/25/23 05/25/23 tablet methylphenidate HCl 10 mg tablet 10 mg PO .COMPLEX #60 tabs 01/25/23 05/25/23 rivastigmine tartrate 3 mg capsule See Rx Instructions .Route 01/25/23 05/25/23 .COMPLEX #180 caps polyethylene glycol 3350 17 gram 17 g PO DAILY PRN Constipation 04/20/23 05/25/23 oral powder packet albuterol sulfate 90 mcg/actuation 2 puff inhalation Q6H PRN 05/19/23 05/25/23 aerosol inhaler shortness of breath or wheezing #8.5 grams ofloxacin 0.3 % ear drops 10 drp otic (ear) DAILY 7 days #5 05/27/23 05/27/23 mL Previous Rx's Medication Instructions Recorded docusate sodium 100 mg tablet 200 mg PO DAILY #180 tabs 02/23/22 propranolol 20 mg tablet 20 mg PO BID #180 tabs 10/26/22 carbidopa 25 mg-levodopa 250 mg 1 tab PO TID #360 tabs 01/25/23 tablet methylphenidate HCl 10 mg tablet 10 mg PO .COMPLEX #60 tabs 01/25/23 rivastigmine tartrate 3 mg capsule See Rx Instructions .Route 01/25/23 .COMPLEX #180 caps albuterol sulfate 90 mcg/actuation 2 puff inhalation Q6H PRN 05/19/23 aerosol inhaler shortness of breath or wheezing #8.5 grams ofloxacin 0.3 % ear drops 10 drp otic (ear) DAILY 7 days #5 05/27/23 mL Allergies Allergy/AdvReac Type Severity Reaction Status Date / Time bupropion HCl AdvReac Intermediate shakey/metal Verified 05/27/23 10:28 [From Wellbutrin] taste/off balance Penicillins AdvReac Intermediate Skin Rash Verified 05/27/23 10:28 foam tape Allergy Intermediate Skin Rash Uncoded 05/27/23 10:28 General LORA: 3 Review of Systems Unobtainable due to mental status PFSH All Active Problems (Updated 05/27/23 @ 18:59 by Juan Ragsdale MD) COPD (chronic obstructive pulmonary disease) (Chronic) Altered mental status (Acute) Shoulder pain, left (Acute) Hernia (Chronic) Parkinsons disease (Chronic) Actinic keratosis (Acute) Chest discomfort (Acute) Paraesophageal hernia (Acute) Nephrolithiasis (Chronic) Fatty liver (Acute) Fracture, femur (Acute) Hypokalemia (Acute) Parkinson's disease dementia (Acute) Polypharmacy (Acute) Advanced care planning/counseling discussion (Acute) Dependence on wheelchair (Acute) Closed fracture of greater trochanter of left femur (Acute 03/19/22) Pain, acute due to trauma (Acute) Ambulatory dysfunction (Acute) Periprosthetic hip fracture (Acute) Right kidney stone (Acute) Nocturia (Acute) Frequent falls (Acute) Progressive supranuclear palsy (Chronic) Anxiety (Chronic) Diabetic neuropathy (Acute) Urinary incontinence (Acute) Constipation (Acute) Memory loss (Acute) Gait abnormality (Acute) H/O esophagogastroduodenoscopy (Chronic ~04/29/19) Fever (Acute) Confusion (Acute) Right hip pain (Acute) GERD (gastroesophageal reflux disease) (Chronic) COPD (chronic obstructive pulmonary disease) (Chronic) S/P total knee replacement (Acute) S/P Arcadio fundoplication (without gastrostomy tube) procedure (Acute) x2 at [facility] [place] Depression (Chronic) Obesity (Chronic) Hyperlipidemia (Acute) Insomnia (Acute) Diverticulosis (Acute) Sleep apnea (Acute) Osteoarthritis (Chronic) History of colonic polyps (Acute) History of kidney stones (Acute) History of cardiac cath (Chronic) Shoulder joint pain (Acute) Cerumen impaction (Acute) History of total hip arthroplasty (Acute) Incisional hernia (Acute) Inguinal hernia (Acute) Chronic low back pain (Acute) Unsteady gait (Acute) Difficulty swallowing (Acute) Behavioral and psychological symptoms of dementia (Acute) Diabetes mellitus (Chronic) Medical History Esophageal stricture [place] lung GERD (gastroesophageal reflux disease) Hiatal hernia Palliative care patient Type 2 diabetes mellitus Surgical History History of colonoscopy History of lumbar laminectomy for spinal cord decompression History of shoulder surgery Total replacement of hip Family History Mother Dementia COPD (chronic obstructive pulmonary disease) Other Cancer Diabetes Heart disease Social History Smoking/Tobacco Use Status: Never Smoking risk assessment performed?: Yes Alcohol Intake: former Drug use: Never Substance use type: does not use Household members: spouse Housing: house Number of Children: 2 number of grandchildren: 3 Pets and animals: Yes Pets and animals: dog(s) What is your relationship status?: Panel score (0-1 are the most socially isolated patients): 1 What type of physical activity do you participate in: none Seatbelt use: always Do you feel safe at home: Yes Do you feel safe in your relationship?: Yes Exam Narrative Exam Narrative: Const: WDWN elderly male in NAD. HEENT: NC/AT. Normal facial exam. Neck: Supple. Trachea midline. Lungs: Mild tachypnea. Decreased breath sounds on the right. Cor: RRR without murmur. Tachycardic. Good radial pulses. GI: Soft. ND. Neuro: Somnolent but wakes to voice. Generally weak but SHELTON x4
[2023-05-27] MEDS: MORPHine 4 MG/ML SYR IVP ×2 (19:18→22:09)
[2023-05-27] MEDS: ACETAMINOPHEN 1,000 MG/100 ML BTL 400 MG IVPB (19:18)
--- NOTE | 2023-05-27 19:21 | W.PM.HP.N ---
Date of service: 05/27/23 Time of Service: 19:21 Assessment and Plan Assessment and plan (1) Altered mental status: Start date: 05/27/23 Status: Acute Assessment and plan: This is a 72-year-old gentleman with advanced Parkinson disease now approaching hospice care presenting with fever and abdominal status now admitted for comfort measures to arrange for hospice first of the week. Family wants no intervention or investigations of his fever though his screening test did reveal no COVID, flu or RSV at this time. All testing will be suspended and patient will be on [employer]. His usual meds will be given as tolerated if they will help with discomfort. Patient may have difficulty swallowing have a history of probable aspiration pneumonia recently with his Parkinson's disease and advanced neurological deficits. He does appear to have some dementia as well and has minimal conversation. As stated will admit for [employer] and arrange for hospice with palliative care consult will be ordered. (2) Fever: Start date: 05/27/23 Status: Acute Assessment and plan: Patient did have some respiratory symptoms with negative screening for viral etiologies that are of significance. No investigations with comfort measures. (3) Parkinsons disease: Status: Chronic Assessment and plan: Advanced with element of dementia and now [employer] with hospice placement first of the week. Family does wish to take him home. Family was attending him during his visit. (4) COPD (chronic obstructive pulmonary disease): Status: Chronic Assessment and plan: Symptomatic care the patient not chronically on inhalers and oxygenating well with no wheezing presently. He did have a cough along with his fever upon presentation. No investigations. Comfort measure. History of Present Illness History of Present Illness Chief Complaint: Altered mental status with fever Narrative: This is a 72-year-old male patient who has end-stage Parkinson disease being cared for by the family at home who has been arranging for hospice care. Patient began to have left ear pain and was seen at the walk-in clinic and found to have increased cerumen with a ENT referral made. He then began to have severe left headache and fever at home with altered mental status prompting ED evaluation. In the ED the family was adamant that they did not want evaluation or treatment for acute issues but only comfort measures. The patient will be admitted for comfort measures only with no further evaluation of his acute process. I examined the patient he awakened but did not know where he was but did answer me as his interviewer. His family was with him in the room and offered no further history other than his acute change in mental status with fever and left headache recently. He has a DNR/DNI and now [employer]. Review of Systems Narrative: 13 point review of systems otherwise unobtainable with patient's advanced Parkinson disease and element of dementia. Family offers no further review. Patient is wheelchair-bound and has become less independent over the years. [facility] All Active Problems COPD (chronic obstructive pulmonary disease) (Chronic) Altered mental status (Acute) Shoulder pain, left (Acute) Hernia (Chronic) Parkinsons disease (Chronic) Actinic keratosis (Acute) Chest discomfort (Acute) Paraesophageal hernia (Acute) Nephrolithiasis (Chronic) Fatty liver (Acute) Fracture, femur (Acute) Hypokalemia (Acute) Parkinson's disease dementia (Acute) Polypharmacy (Acute) Advanced care planning/counseling discussion (Acute) Dependence on wheelchair (Acute) Closed fracture of greater trochanter of left femur (Acute 03/19/22) Pain, acute due to trauma (Acute) Ambulatory dysfunction (Acute) Periprosthetic hip fracture (Acute) Right kidney stone (Acute) Nocturia (Acute) Frequent falls (Acute) Progressive supranuclear palsy (Chronic) Anxiety (Chronic) Diabetic neuropathy (Acute) Urinary incontinence (Acute) Constipation (Acute) Memory loss (Acute) Gait abnormality (Acute) H/O esophagogastroduodenoscopy (Chronic ~04/29/19) Fever (Acute) Confusion (Acute) Right hip pain (Acute) GERD (gastroesophageal reflux disease) (Chronic) COPD (chronic obstructive pulmonary disease) (Chronic) S/P total knee replacement (Acute) S/P Arcadio fundoplication (without gastrostomy tube) procedure (Acute) x2 at [facility] [place] Depression (Chronic) Obesity (Chronic) Hyperlipidemia (Acute) Insomnia (Acute) Diverticulosis (Acute) Sleep apnea (Acute) Osteoarthritis (Chronic) History of colonic polyps (Acute) History of kidney stones (Acute) History of cardiac cath (Chronic) Shoulder joint pain (Acute) Cerumen impaction (Acute) History of total hip arthroplasty (Acute) Incisional hernia (Acute) Inguinal hernia (Acute) Chronic low back pain (Acute) Unsteady gait (Acute) Difficulty swallowing (Acute) Behavioral and psychological symptoms of dementia (Acute) Diabetes mellitus (Chronic) Medical History Esophageal stricture [place]' lung GERD (gastroesophageal reflux disease) Hiatal hernia Palliative care patient Type 2 diabetes mellitus Surgical History History of colonoscopy History of lumbar laminectomy for spinal cord decompression History of shoulder surgery Total replacement of hip Family History Mother Dementia COPD (chronic obstructive pulmonary disease) Other Cancer Diabetes Heart disease Social History Smoking/Tobacco Use Status: Never Smoking risk assessment performed?: Yes Alcohol Intake: former Drug use: Never Substance use type: does not use Household members: spouse Housing: house Number of Children: 2 number of grandchildren: 3 Pets and animals: Yes Pets and animals: dog(s) What is your relationship status?: Panel score (0-1 are the most socially isolated patients): 1 What type of physical activity do you participate in: none Seatbelt use: always Do you feel safe at home: Yes Do you feel safe in your relationship?: Yes Meds Allergies and Home Medications Allergies Allergy/AdvReac Type Severity Reaction Status Date / Time bupropion HCl AdvReac Intermediate shakey/metal Verified 05/27/23 10:28 [From Wellbutrin] taste/off balance Penicillins AdvReac Intermediate Skin Rash Verified 05/27/23 10:28 foam tape Allergy Intermediate Skin Rash Uncoded 05/27/23 10:28 Home Medications Medication Instructions Recorded Confirmed Type glipizide 10 mg tablet 10 mg PO DAILY 04/20/16 05/27/23 History gabapentin 300 mg capsule 900 mg PO TID 04/17/19 05/27/23 History fluoxetine 40 mg capsule 40 mg PO DAILY 03/24/21 05/27/23 History sucralfate 1 gram tablet 1 g PO TID 08/25/21 05/27/23 History famotidine 20 mg tablet 20 mg PO DAILY 12/21/21 05/27/23 History metformin 500 mg tablet 500 mg PO BID 12/21/21 05/27/23 History docusate sodium 100 mg tablet 200 mg PO DAILY #180 tabs 02/23/22 05/27/23 Rx oxybutynin chloride 5 mg tablet 5 mg PO BID 02/23/22 05/27/23 History pantoprazole 40 mg tablet,delayed 40 mg PO BID 03/21/22 05/27/23 History release acetaminophen 500 mg capsule 500 mg PO Q6H PRN 04/06/22 05/27/23 History fluticasone propionate 50 1 spray intranasal DAILY 08/24/22 05/27/23 History mcg/actuation nasal spray,suspension (Flonase Allergy Relief) propranolol 20 mg tablet 20 mg PO BID #180 tabs 10/26/22 05/27/23 Rx carbidopa 25 mg-levodopa 250 mg 1 tab PO TID #360 tabs 01/25/23 05/27/23 Rx tablet methylphenidate HCl 10 mg tablet 10 mg PO .COMPLEX #60 tabs 01/25/23 05/27/23 Rx rivastigmine tartrate 3 mg capsule See Rx Instructions .Route 01/25/23 05/27/23 Rx .COMPLEX #180 caps polyethylene glycol 3350 17 gram 17 g PO DAILY PRN Constipation 04/20/23 05/27/23 History oral powder packet albuterol sulfate 90 mcg/actuation 2 puff inhalation Q6H PRN 05/19/23 05/27/23 Rx aerosol inhaler shortness of breath or wheezing #8.5 grams ofloxacin 0.3 % ear drops 10 drp otic (ear) DAILY 7 days #5 05/27/23 05/27/23 Rx mL Exam Narrative Exam Narrative: General: Patient appears appropriate for age, short stature and morbidly obese. He is not oriented to person, place or time. He does awaken and answer questions with simple yes no but inappropriately. He is in no acute distress. HEENT: Normocephalic, eyes with pupils equal react light symmetrically, extraocular movement tachycardia sclera anicteric. Oropharynx with dry mucosa. No drainage from ears. Neck: Supple without JVD. Back: Not examined. Lungs: Fair aeration clear to examination of anterior lung ordaz. Heart: Regular rate and rhythm with no murmurs or gallops appreciated. Abdomen: Obese contour, soft nontender to palpation with no palpable hepatosplenomegaly. Extremities: Without clubbing, cyanosis or grossly pitting edema. Muscle atrophy diffusely. Increased tone with rigidity from Parkinson's disease. Fair capillary refill. Skin: Pale, hot and dry with actinic changes over sun exposed areas. Hyperpigmented patch over right medial ankle. Neuro: Cranial nerves II through XII grossly intact. No focal motor deficits but increased tone and rigidity of extremities. No tremor noted. Psych: Flattened affect the patient looking toward interviewer but not responding appropriately. Masklike facies. No abnormal thought processes manifested by patient has minimal conversation. Remote and recent memory testing not possible. Results Imaging Imaging Studies: EXAM: ? CT CHEST PE CTA Date05/19/2023 CLINICAL HISTORY: ? hypoxia. TECHNIQUE:? Imaging Protocol:? Axial CT angiography was performed with multi-slice acquisition and multi-planar reconstructions as well as axial, coronal and sagittal MIP reconstructions. CONTRAST MATERIAL:? Intravenous: Omnipaque 350 Contrast volume:100 ml COMPARISON:? CT CT ABDOMEN ? PELVIS W from 04/19/2023 CR XR PORTABLE CHEST AP from 05/19/2023 FINDINGS: Exam is limited by respiratory motion.? Pulmonary Arteries: No evidence of filling defect to suggest pulmonary emboli. Tracheobronchial tree: Patent where visualized. Mediastinum and Melvina: No dominant adenopathy or fluid collection. Pulmonary parenchyma: No consolidation or dominant measurable mass. Expiratory changes. Pleura: No effusion or pneumothorax. Heart: The heart is not dilated. No coronary artery calcifications are seen. Aorta: Thoracic aorta non-dilated.? No aneurysm.? No dissection.? Mild atherosclerotic changes.? Upper abdomen:? Fatty liver.? Cholelithiasis.? Small hiatal hernia. Bones: Degenerative changes in the spine with flowing osteophytes. Tubes, Catheters, and Lines: None IMPRESSION: No evidence of pulmonary embolism. No acute abnormality Labs Labs: COVID and flu screen with RSV screen negative. Last Vital Signs Temp 38.1 C H 05/27/23 18:25 Pulse 96 H 05/27/23 18:46 Resp 20 05/27/23 18:49 BP 148/81 H 05/27/23 18:46 Pulse Ox 95 05/27/23 18:49 Time Spent Time spent with Patient: 55-74 minutes Time was spent: preparing to see the patient(eg.review tests), obtaining and/or reviewing separately otained hiistory, ordering medications,tests, procedures, referring, communicating with other health complex care nurse, indepentently interpreting results, counseling the patient, care coordination and other (Reviewing hospice and care plan with patient's family in room)
[2023-05-27 19:48] LABS: COVID-19 PCR Negative (Negative); Influenza A PCR Negative (Negative); Influenza B PCR Negative (Negative); RSV PCR Negative (Negative)
--- NOTE | 2023-05-27 19:49 | NUR.NOTE ---
Nursing Note: Report to Magaly RN; pt going to room 211 shortly.
[2023-05-27 19:51] LABS: Source Nasopharynx
[2023-05-27] MEDS: Propranolol 20 MG TAB PO (20:37)
[2023-05-27] MEDS: Pantoprazole 40 MG TABCR PO (20:37)
[2023-05-27] MEDS: Gabapentin 300 MG CAP 900 MG PO (20:37)
[2023-05-27] MEDS: Scopolamine 1 MG/3 DAYS PATCH TD (20:37)
[2023-05-27] MEDS: LORazepam 2 MG/ML VIAL IVP (22:42)
[2023-05-28] MEDS: Fluticasone NASAL SPRAY 16 GM BTL NS (08:04)
[2023-05-28] MEDS: Gabapentin 300 MG CAP 900 MG PO (08:04)
[2023-05-28] MEDS: Propranolol 20 MG TAB PO (08:04)
[2023-05-28] MEDS: Pantoprazole 40 MG TABCR PO (08:04)
[2023-05-28] MEDS: Sucralfate 1 GM TAB PO (08:04)
--- NOTE | 2023-05-28 08:20 | PDOC.CMIN ---
Date of service: 05/28/23 Time of Service: 08:20 Care Management Initial Assmt Initial Assessment REASON FOR HOSPITALIZATION:: AMS, Parkinsons, PREVIOUS FUNCTIONAL STATUS/SOCIAL/FAMILY SUPPORTS:: Valdemar lives in a single family home in [place] with his Carolina and 3 other people. They have 2 children; one lives locally and one son lives in [place]. 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 He is unable to walk and is wheelchair bound. Valdemar has a hospital bed and both manual and electric wheelchairs. He is able to stand to transfer with supervision. Valdemar does not receive any community services although he is [id number] by Palliative Care. Sofie Yin APRN is his palliative care provider. CURRENT FUNCTIONAL STATUS:: Valdemar was lying in bed when CM met with him. He appeared sleepy but his eyes were open. He did not engage win conversation with CM. Valdemar's daughter Syeda was there with her . She explained that she is not actually related but has lived in his home for over 15 years and they are close. Her is also living there with her. At this point Valdemar requires maximum assist with transfers, bathing etc., but up until about a month ago he was able to use his wheelchair to get to the bathroom and transfer himself in. The plan will be for Valdemar to discharge home and be admitted onto the hospice service. ADVANCE DIRECTIVES:: COLST on file. [place] [facility] Has patient been provided with info about the portal/API?: Yes Did the patient sign up for the portal?: No CODE STATUS:: DNR/DNI INSURANCE COVERAGE / FINANCIAL ISSUES:: [facility] Medicare Replacement PRIMARY CARE PHYSICIAN:: Awilda Rollins POTENTIAL DISCHARGE NEEDS:: Admission to hospice after discharge PATIENT/FAMILY EDUCATION NEEDS:: Review of discharge instructions, limitations, activity, follow up plan, discuss Ask me Three TRANSPORTATION:: to be determined PLAN:: Anticipate Valdemar will be discharged home and will be admitted onto the hospice service. He will follow up with his community providers as well as the hospice and palliative care teams and transport with family vs EMS. CM will support Valdemar and his discharge needs. PFSH All Active Problems COPD (chronic obstructive pulmonary disease) (Chronic) Altered mental status (Acute) Shoulder pain, left (Acute) Hernia (Chronic) Parkinsons disease (Chronic) Actinic keratosis (Acute) Chest discomfort (Acute) Paraesophageal hernia (Acute) Nephrolithiasis (Chronic) Fatty liver (Acute) Fracture, femur (Acute) Hypokalemia (Acute) Parkinson's disease dementia (Acute) Polypharmacy (Acute) Advanced care planning/counseling discussion (Acute) Dependence on wheelchair (Acute) Closed fracture of greater trochanter of left femur (Acute 03/19/22) Pain, acute due to trauma (Acute) Ambulatory dysfunction (Acute) Periprosthetic hip fracture (Acute) Right kidney stone (Acute) Nocturia (Acute) Frequent falls (Acute) Progressive supranuclear palsy (Chronic) Anxiety (Chronic) Diabetic neuropathy (Acute) Urinary incontinence (Acute) Constipation (Acute) Memory loss (Acute) Gait abnormality (Acute) H/O esophagogastroduodenoscopy (Chronic ~04/29/19) Fever (Acute) Confusion (Acute) Right hip pain (Acute) GERD (gastroesophageal reflux disease) (Chronic) COPD (chronic obstructive pulmonary disease) (Chronic) S/P total knee replacement (Acute) S/P Arcadio fundoplication (without gastrostomy tube) procedure (Acute) x2 at [facility] Depression (Chronic) Obesity (Chronic) Hyperlipidemia (Acute) Insomnia (Acute) Diverticulosis (Acute) Sleep apnea (Acute) Osteoarthritis (Chronic) History of colonic polyps (Acute) History of kidney stones (Acute) History of cardiac cath (Chronic) Shoulder joint pain (Acute) Cerumen impaction (Acute) History of total hip arthroplasty (Acute) Incisional hernia (Acute) Inguinal hernia (Acute) Chronic low back pain (Acute) Unsteady gait (Acute) Difficulty swallowing (Acute) Behavioral and psychological symptoms of dementia (Acute) Diabetes mellitus (Chronic) Medical History Esophageal stricture [place]' lung GERD (gastroesophageal reflux disease) Hiatal hernia Palliative care patient Type 2 diabetes mellitus Surgical History History of colonoscopy History of lumbar laminectomy for spinal cord decompression History of shoulder surgery Total replacement of hip Family History Mother Dementia COPD (chronic obstructive pulmonary disease) Other Cancer Diabetes Heart disease Social History Smoking/Tobacco Use Status: Never Smoking risk assessment performed?: Yes Alcohol Intake: former Drug use: Never Substance use type: does not use Household members: spouse Housing: house Number of Children: 2 number of grandchildren: 3 Pets and animals: Yes Pets and animals: dog(s) What is your relationship status?: Panel score (0-1 are the most socially isolated patients): 1 What type of physical activity do you participate in: none Seatbelt use: always Do you feel safe at home: Yes Do you feel safe in your relationship?: Yes
[2023-05-28] MEDS: Ofloxacin 0.3% OTIC 5 ML BTL OT (08:27)
[2023-05-28] MEDS: MORPHine 4 MG/ML SYR IVP ×4 (08:27→21:00)
[2023-05-28] MEDS: ACETAMINOPHEN 1,000 MG/100 ML BTL 400 MG IVPB ×2 (08:28→16:00)
[2023-05-28] MEDS: Normal Saline Flush 10 ML SYR IVP (11:21)
[2023-05-28] MEDS: LORazepam 2 MG/ML VIAL IVP (12:58)
--- NOTE | 2023-05-28 14:02 | W.PM.PROGNOT ---
Date of Service Date of service: 05/28/23 Time of Service: 14:02 Assessment and Plan Assessment and plan (1) Comfort measures only status: Status: Acute Assessment and plan: continue comfort measures only. anticipate he will stay here for end of life care care management following discussed with Dr Germain Subjective Subjective Interval history since last seen: resting quietly, unresponsive Exam Const General: no acute distress Nutritional Appearance: overweight Orientation: obtunded HENMT Head: normal to inspection and atraumatic Mouth: moist mucous membranes abnormal Chest Chest: normal inspection of the chest Resp Effort & Inspection: normal respiratory effort Skin General skin exam: no rashes or lesions noted (pale warm/hot to touch) Objective Last Vital Signs Temp 37.9 C H 05/27/23 20:04 Pulse 98 H 05/27/23 20:04 Resp 22 05/27/23 20:04 BP 135/89 05/27/23 20:04 Pulse Ox 94 05/27/23 20:04 Laboratory Results - last 24 hr 05/27/23 19:06 COVID-19 Source Nasopharynx SARS-CoV-2 (PCR) Negative Influenza Type A (PCR) Negative Influenza Type B (PCR) Negative RSV (PCR) Negative Time Spent with Patient Time Spent with Patient: <25 minutes Time was spent: preparing to see the patient(eg.review tests) and counseling the patient (family)
[2023-05-28] MEDS: Ondansetron 4 MG/2 ML VIAL IVP (21:00)
--- NOTE | 2023-05-28 21:12 | NUR.NOTE ---
Nursing Note: Pt's drowsy, running low grade fever. Family at the bedside refused his oral medications due to aspiration. pt's spouse said: he had a hard time this morning with his oral med and was not able to swallow. holding oral med for now, informed the charge nurse . waiting for alternative rout to complete the evening meds.
[2023-05-29] VITALS (11 sets, daily range): BP systolic 153; BP diastolic 79; PULSE 100; RESP 19; TEMP 37.2–38.8; O2SAT 92–93
[2023-05-29] MEDS: ACETAMINOPHEN 1,000 MG/100 ML BTL 400 MG IVPB ×2 (00:48→08:12)
[2023-05-29] MEDS: MORPHine 4 MG/ML SYR IVP (00:48)
[2023-05-29] MEDS: LORazepam 2 MG/ML VIAL IVP (04:45)
[2023-05-29] MEDS: Ofloxacin 0.3% OTIC 5 ML BTL OT (08:39)
[2023-05-29] MEDS: Normal Saline Flush 10 ML SYR IVP (11:27)
[2023-05-29] MEDS: Ketorolac 15 MG/ML VIAL IVP (11:28)
[2023-05-29] MEDS: Gabapentin 300 MG CAP 900 MG PO (14:03)
[2023-05-29] MEDS: Sucralfate 1 GM TAB PO (14:03)
--- NOTE | 2023-05-29 14:09 | DSE_ITS ---
Date of service: 05/29/23 Time of Service: 14:10 DS: Diagnosis Discharge Diagnosis (1) Comfort measures only status: Status: Acute Discharge Plan Disposition Patient Disposition: Home W/Hospice Services Condition: Stable Discharge Details Reason For Visit: Fever, AMS, Parkinsons Disease Admit Date/Time: 05/27/23 19:00 Admit Provider: Valdemar Brandt Attending Provider: Valdemar Brandt Primary Care Provider: Awilda Rollins Hospital Course Hospital Course: This is a 72-year-old gentleman with advanced Parkinson disease now approaching hospice care who presented to the ED with fever and abdominal pain.? Family wanted no intervention or investigations of his fever though his screening test did reveal no COVID, flu or RSV at this time.? He was admitted under hospitalist for comfort measures and to arrange for hospice. His usual meds were to be continued be given as tolerated if they will help with discomfort.? Overnight he essentially remained unresponsive but on the day of discharge she did wake up and was awake and oriented to person and able to take some oral intake. The met with hospice and she opted to take him home on hospice services. Oxygen was weaned and he was satting in the low 90s on room air so no oxygen needed at discharge. He is being discharged to home by ambulance and essence l be admitted to hospice services tomorrow discharge is discussed with DR Mane Weber Meds and New Rx's Prescriptions: No Action sucralfate 1 gram tablet 1 g PO TID docusate sodium 100 mg tablet 200 mg PO DAILY Qty: 180 0RF Rx Instructions: AT HS fluticasone propionate [Flonase Allergy Relief] 50 mcg/actuation spray,suspension 1 spray intranasal DAILY Rx Instructions: administer into each nostril propranolol 20 mg tablet 20 mg PO BID Qty: 180 3RF gabapentin 300 mg capsule 900 mg PO TID fluoxetine 40 mg capsule 40 mg PO DAILY acetaminophen 500 mg capsule 500 mg PO Q6H PRN methylphenidate HCl 10 mg tablet 10 mg PO .COMPLEX MDD 20mg Qty: 60 0RF Rx Instructions: 10 mg orally once daily in am; ok to take 2nd at noon if still overly fatigued; carbidopa-levodopa 25-250 mg tablet 1 tab PO TID Qty: 360 3RF Rx Instructions: WITH MEALS (0800,1200,1700) rivastigmine tartrate 3 mg capsule See Rx Instructions .ROUTE .COMPLEX Qty: 180 3RF Dose Instruction: Take 1 capsule by mouth twice daily Rx Instructions: Take 1 capsule by mouth twice daily ofloxacin 0.3 % drops 10 drp otic (ear) DAILY 7 Days Qty: 5 0RF metformin 500 mg tablet 500 mg PO BID famotidine 20 mg tablet 20 mg PO DAILY oxybutynin chloride 5 mg tablet 5 mg PO BID lorazepam 1 mg tablet 1 mg PO Q4H PRN PRN (Reason: anxiety) Qty: 6 0RF Rx Instructions: hospice patient morphine concentrate 100 mg/5 mL (20 mg/mL) solution 5 - 20 mg PO Q1-4H MDD 480 PRN (Reason: pain) Qty: 30 0RF Rx Instructions: hospice patient glipizide 10 MG tablet 10 mg PO DAILY polyethylene glycol 3350 17 gram Powder In Packet 17 g PO DAILY PRN (Reason: Constipation) albuterol sulfate 90 mcg/actuation HFA aerosol inhaler 2 puff inhalation Q6H PRN (Reason: shortness of breath or wheezing) Qty: 8.5 0RF pantoprazole 40 mg tablet,delayed release (DR/EC) 40 mg PO BID Patient Comments: TAKE ONE TABLET BY MOUTH TWICE A DAY Discharge Instructions Instructions: Comfort Measures (GEN) Additional Instructions: medication and care to be directed by hospice Stand Alone Forms: Nursing Discharge Form Activity:: Activity as Tolerated Equipment/Supplies:: No Equipment Needed Diet:: As Tolerated Discharge Orders Discharge Orders: Discharge Order (Routine); Ordered 05/29/23 Ordered By: Taylor Flowers Discharge Data Discharge Date/Time-TO BE ENTERED AT DEPARTURE: 05/29/23 15:51 DS: Summary Time Spent with Patient providing and/or coordinating discharge services: Greater than 30 minutes Status at Discharge Functional status at discharge: bed bound Overall status at discharge: patient is back to baseline Mental Status: other Speech and Movement: speech and movement normal Mood: congruent mood and other Affect: normal affect Exam Const General: no acute distress Nutritional Appearance: overweight Orientation: alert and awake HENMT Head: normal to inspection, normocephalic and atraumatic Chest Chest: normal inspection of the chest Resp Effort & Inspection: normal respiratory effort Cardio Rate: regular rate Rhythm: regular rhythm Skin Rashes: no rashes and other (pale, warm well perfused) Neuro General: patient alert and patient awake Psych Mental Status: other Speech and Movement: speech and movement normal Mood: congruent mood and other Affect: normal affect DS: Data Vitals/I&O Vitals and I&O: Vital Signs Temperature 37.4 C 05/29/23 13:49 Temperature Source Tympanic 05/29/23 13:49 Pulse 100 H 05/29/23 13:49 Pulse Rhythm Regular 05/27/23 20:04 Respiratory Rate 19 05/29/23 13:49 Respiratory Effort Normal, Short of Breath 05/27/23 20:04 Respiratory Depth Normal 05/27/23 20:04 Respiratory Pattern Normal 05/27/23 20:04 Blood Pressure 153/79 H 05/29/23 13:49 Blood Pressure Position Sitting 05/27/23 18:25 Pulse Oximetry 93 05/29/23 13:50 Oxygen Delivery Method Room Air 05/29/23 13:50 Oxygen Flow Rate 0 05/29/23 13:50 Pain Level 9 05/28/23 21:00 Comment 2L 02 05/27/23 18:25 Intake & Output 05/28/23 05/29/23 05/29/23 23:59 11:59 23:59 Intake Total 100 / 200 200 / 200 Output Total 200 / 600 450 / 450 Balance -100 / -400 -250 / -250 Intake: IV 100 / 200 200 / 200 Output: Urine 200 / 600 450 / 450 Other: Urine Color Yellow Light Jaymie Urine Appearance Sediment Clear PFSH All Active Problems (Updated 05/28/23 @ 14:03 by Taylor Flowers NP) Comfort measures only status (Acute) COPD (chronic obstructive pulmonary disease) (Chronic) Altered mental status (Acute) Shoulder pain, left (Acute) Hernia (Chronic) Parkinsons disease (Chronic) Actinic keratosis (Acute) Chest discomfort (Acute) Paraesophageal hernia (Acute) Nephrolithiasis (Chronic) Fatty liver (Acute) Fracture, femur (Acute) Hypokalemia (Acute) Parkinson's disease dementia (Acute) Polypharmacy (Acute) Advanced care planning/counseling discussion (Acute) Dependence on wheelchair (Acute) Closed fracture of greater trochanter of left femur (Acute 03/19/22) Pain, acute due to trauma (Acute) Ambulatory dysfunction (Acute) Periprosthetic hip fracture (Acute) Right kidney stone (Acute) Nocturia (Acute) Frequent falls (Acute) Progressive supranuclear palsy (Chronic) Anxiety (Chronic) Diabetic neuropathy (Acute) Urinary incontinence (Acute) Constipation (Acute) Memory loss (Acute) Gait abnormality (Acute) H/O esophagogastroduodenoscopy (Chronic ~04/29/19) Fever (Acute) Confusion (Acute) Right hip pain (Acute) GERD (gastroesophageal reflux disease) (Chronic) COPD (chronic obstructive pulmonary disease) (Chronic) S/P total knee replacement (Acute) S/P Arcadio fundoplication (without gastrostomy tube) procedure (Acute) x2 at [facility] Depression (Chronic) Obesity (Chronic) Hyperlipidemia (Acute) Insomnia (Acute) Diverticulosis (Acute) Sleep apnea (Acute) Osteoarthritis (Chronic) History of colonic polyps (Acute) History of kidney stones (Acute) History of cardiac cath (Chronic) Shoulder joint pain (Acute) Cerumen impaction (Acute) History of total hip arthroplasty (Acute) Incisional hernia (Acute) Inguinal hernia (Acute) Chronic low back pain (Acute) Unsteady gait (Acute) Difficulty swallowing (Acute) Behavioral and psychological symptoms of dementia (Acute) Diabetes mellitus (Chronic) Medical History Esophageal stricture [place]' lung GERD (gastroesophageal reflux disease) Hiatal hernia Palliative care patient Type 2 diabetes mellitus Surgical History History of colonoscopy History of lumbar laminectomy for spinal cord decompression History of shoulder surgery Total replacement of hip Family History Mother Dementia COPD (chronic obstructive pulmonary disease) Other Cancer Diabetes Heart disease Social History Smoking/Tobacco Use Status: Never Smoking risk assessment performed?: Yes Alcohol Intake: former Drug use: Never Substance use type: does not use Household members: spouse Housing: house Number of Children: 2 number of grandchildren: 3 Pets and animals: Yes Pets and animals: dog(s) What is your relationship status?: Panel score (0-1 are the most socially isolated patients): 1 What type of physical activity do you participate in: none Seatbelt use: always Do you feel safe at home: Yes Do you feel safe in your relationship?: Yes Time Spent with Patient Time Spent with Patient: 45-69 minutes Time was spent: preparing to see the patient(eg.review tests), referring, communicating with other health animal caretaker and care coordination
--- NOTE | 2023-05-29 14:23 | CMDISCH_ITS ---
Date of service: 05/29/23 Time of Service: 14:24 LACE Index Scoring Tool Questions: Length of Stay (in days): 2 Was the patient admitted via the E.D.?: Yes Comorbidities: Diabetes w/o Complication, Chronic Pulmonary Disease, Mild Liver/Renal Disease and Dementia E.D. Visits: 4 Answers: Total Score: 14 Risk of Readmission: High Risk Care Management Discharge Plan Reason for Hospitalization: AMS, Parkinsons, Discharge Plan: Valdemar discharge home and be admitted to hospice through [facility]. He will transport with family, or via EMS. Patient/Family Education Needs: Review discharge instructions, discuss Ask Me Three. Services Needed at Discharge: Home Health Care Services ([facility] and Hospice ) and Transportation (EMS: [facility] )
== END 2023-05-29 15:51 | disposition hospice, home (50) | DRG 864 ==
LOC: ER 19:13 → MS 19:56
PROVIDERS: Admitting Provider Family Medicine; Emergency Provider Emergency Medicine; PCP Nurse Practitioner Family; Visit Provider Family Medicine
DX: R50.9 Fever, unspecified (principal); G20 Parkinson's disease; R41.82 Altered mental status, unspecified; Z51.5 Encounter for palliative care; J44.9 Chronic obstructive pulmonary disease, unspecified; Z66 Do not resuscitate; F02.80 Dementia in other diseases classified elsewhere, unspecified severity, without behavioral disturbance, psychotic disturbance, mood disturbance, and anxiety; K44.9 Diaphragmatic hernia without obstruction or gangrene; N20.0 Calculus of kidney; K76.0 Fatty (change of) liver, not elsewhere classified; Z99.3 Dependence on wheelchair; E87.6 Hypokalemia; R29.6 Repeated falls; K59.00 Constipation, unspecified; E11.40 Type 2 diabetes mellitus with diabetic neuropathy, unspecified; F41.9 Anxiety disorder, unspecified; K21.9 Gastro-esophageal reflux disease without esophagitis; G89.29 Other chronic pain; M54.50 Low back pain, unspecified
CPT/HCPCS: 82962; 87637; 96374; 99285; 99232; 99239; J0131; J1885; J2060; J2270; J2405